=== PATIENT | male | born 1965 | race Caucasian/White ===

== ENCOUNTER 2018-01-20 14:41 | Inpatient (IN) | payer SELFPAY ==
[~2018-01-20 14:41] MED LIST: ISOVUE-370 76%-LOCM 1 ML ONE
[2018-01-20 15:19] LABS: #Lymphocytes 1.5 thou/uL (1.20-3.40); #Neutrophils 13.9 thou/uL (1.40-6.50); %Basophils 0.1 % (0.0-1.0); %Eosinophils 0.1 % (0.0-10.0); %Lymphocytes 8.9 % (21.0-51.0); %Monocytes 6.3 % (0.0-10.0); %Neutrophils 84.5 % (42.0-75.0); Hemoglobin 17.9 g/dL (14.0-18.0); Mean Corpuscular Hemoglobin 28.3 pg (27.0-31.0); Mean Corpuscular Volume 88.5 fL (78.0-98.0); Mean Platelet Volume 8.5 fL (7.4-10.4); Platelet Count 331 thou/uL (130-400); Red Blood Cell (RBC) Count 6.31 mill/uL (4.70-6.10); White Blood Cell (WBC) Count 16.4 thou/uL (4.8-10.8)
[2018-01-20 15:52] LABS: ALT (SGPT) 20 U/L (8-55); AST (SGOT) 15 U/L (5-34); Albumin 4.9 g/dL (3.5-5.0); Alkaline Phosphatase 101 U/L (40-150); Anion Gap 16 mmol/L (10-20); BUN (Urea Nitrogen) 29 mg/dL (8.4-25.7); Calc. Creatinine Clearance 0 mL/min (70-130); Calcium 10.5 mg/dL (7.8-10.44); Carbon Dioxide 22 mmol/L (22-29); Chloride 101 mmol/L (98-107); Estimated GFR-MDRD 61; Globulin 3.8 g/dL (2.4-3.5); Glucose 196 mg/dL (70-105); Lipase 8 U/L (8-78); Potassium 4.1 mmol/L (3.5-5.1); Protein, Total 8.7 g/dL (6.0-8.3); Sodium 135 mmol/L (136-145)
--- NOTE | 2018-01-20 16:04 | RAD ---
TWO VIEWS ABDOMEN ONE VIEW CHEST: 01/20/18 HISTORY: Pain and constipation. COMPARISON: None. FINDINGS: ONE VIEW CHEST: Diminished lung volumes. No consolidation or masses. No pleural effusion or pneumothorax. Normal card iac silhouette. ABDOMEN TWO VIEWS: Air filled loops of bowel are noted without differential air fluid levels. No pneumoperitoneum. On the supine projection, the majority of air appears to be within the colon. Paucity of small bowel gas. There is minimal amount of fecal material in the rectum. IMPRESSION: 1. Diminished lung volumes. No acute cardiopulmonary process. 2. Nonspecific bowel gas pattern. The air filled loops of nondistended colon without differentia l air fluid levels. POS: [facility]
--- NOTE | 2018-01-20 16:30 | CT ---
ABDOMEN CT WITH CONTRAST PELVIC CT WITH CONTRAST 01/20/18 HISTORY: Right lower quadrant pain. Abdominal fullness. COMPARISON: None. TECHNIQUE: Abdomen and pelvic CT are performed with IV contrast. Enteric contrast is not administered. Coronal r eformatted images are submitted for interpretation. FINDINGS: ABDOMEN CT: Lung bases are clear. Heart size is normal. No pericardial effusion. The descending thoracic aorta an d abdominal aorta are of normal caliber. No periaortic fat stranding. Portal vein is patent. Unremarkable gallbladder. Liver, spleen, pancreas, and adrenal glands have appropriate enhancement. No gastrohepatic retrocrural or periportal lymphadenopathy. There is elevation of the right hemidiaphragm. No mesenteric mass, lymphadenopathy, free air or free fluid. Symmetric enhancement of the kidneys. Bilaterally, no obstructive uropathy. Gastric mucosa is unremarkable. No evidence of gastric distention. Multiple fluid filled prominent sm all bowel loops involving the mid to distal small bowel, including the distal ileum and ileocecal candy ction. There is fluid attenuation involving the distended cecum, ascending colon, and proximal transv erse colon. The mid to distal transverse colon is still mildly prominent and fluid filled. The descen ding colon is mildly prominent and fluid filled. The cecum is decompressed. There is a minimal amount of fecal material in the rectum. There is evidence of a possible transition segment in the junction between the descending colon and sigmoid colon. Normal caliber appendix is noted. PELVIC CT: No mass, lymphadenopathy, free air of free fluid. IMPRESSION: Prominent fluid filled loops of colon and mid to distal small bowel. Findings may represent an obstru ctive process, possibly due to a mass lesion in the junction of the descending colon and sigmoid colo n (coronal image #[id number]). Possibility of a developing ileus cannot be completely excluded. Consider GI c onsultation for possible colonoscopy. POS: [facility]
[2018-01-20] MEDS ORDERED: HumaLOG 300 UNITS/3 ML VIAL SC PRN (18:49)
[2018-01-20] MEDS ORDERED: Dextrose 5% in Water 1,000 ML IV PRN (18:49)
[2018-01-20] MEDS ORDERED: Dextrose 50% Abboject 50 ML SYRINGE SLOW IVP PRN (18:49)
[2018-01-20] MEDS: Sodium Chloride 0.9% 1,000 ML IV SCH ×2 (19:00→20:06)
--- NOTE | 2018-01-20 19:33 | HP ---
PRIMARY CARE PROVIDER: Ryan Cabral. CHIEF COMPLAINT: Constipation. HISTORY OF PRESENT ILLNESS: Mr. Park is a pleasant 52-year-old gentleman, who was seen at [facility] on 01/20/2018. He is accompanied by his sister in the emergency room. He reports that he has been constipated over the last 3 days. He is passing flatus. He did not have a bowel movement. He reports that his symptoms actually started 3 weeks ago. Over the last 3 weeks, he has been having constipation as well as passage of liquid stools. He reports right lower quadrant pain over the las t 2 weeks, on and off, but it has resolved. He denies any nausea or vomiting. He denies any chest p ain. He denies any fevers or chills. He came to the emergency room because of the constipation. REVIEW OF SYSTEMS: All other systems reviewed and found to be negative. PAST MEDICAL HISTORY: Diabetes mellitus, type 2; and hypertension. PAST SURGICAL HISTORY: None. SOCIAL HISTORY: The patient denies tobacco use, alcohol use and recreational drug use. FAMILY HISTORY: Significant for multiple family members with heart problems, including his sister wh o had a "minor heart attack." ALLERGIES: No known drug allergies. CURRENT MEDICATIONS: None. PHYSICAL EXAMINATION: GENERAL: On examination, Mr. Park is awake and alert, not in acute distress. He is obese. VITAL SIGNS: Blood pressure is 177/104, pulse 110, respiratory rate 16, and he is saturating 94% on room air. He is afebrile. EYES: No scleral icterus. No conjunctival pallor. ENT: Moist mucosal membranes, no oropharyngeal erythema or exudates. NECK: Supple, nontender, normal range of movement, trachea is midline. RESPIRATORY: Accessory muscles of breathing are not active. Chest wall movements are symmetric bila terally. Lungs are clear to auscultation without wheeze, rhonchi or crepitations. CARDIOVASCULAR: S1 and S2 are heard, tachycardic and regular. Peripheral pulses palpable. No carot id bruit, no pericardial rub. ABDOMEN: Distended, nontender, bowel sounds are heard, no hepatomegaly, no splenomegaly. Rectal exa mination was done by emergency room physician, who notes the patient had brown stool. NEUROLOGIC: Cranial nerves II-XII intact. Deep tendon reflexes are 2+. MUSCULOSKELETAL: Power is 5/5 in all 4 extremities. SKIN: No rashes or subcutaneous nodules. LYMPHATIC: No cervical lymphadenopathy. PSYCHIATRIC: Normal mood, normal affect, patient is oriented to person, place, and time. LABORATORY DATA AND IMAGING: Mr. Park's labs and investigations were reviewed. I reviewed h is electrocardiogram, which shows sinus tachycardia, no ST changes to suggest an acute coronary syndr ome. I also reviewed his acute abdomen series, which shows air filled loops of bowel. He went on to have a CT scan of the abdomen and pelvis. Radiology report indicates prominent fluid filled loops o f colon and mid to distal small bowel. The findings may represent an obstructive process, possibly d ue to a mass lesion in the junction of the descending colon and sigmoid colon. Radiologist recommend s GI consultation for possible colonoscopy. He has leukocytosis with 16,400 white cells, of which 84 .5% are neutrophils, normal hemoglobin, normal platelet count, decreased sodium of 135, normal potass ium, elevated blood urea nitrogen of 29, normal creatinine, elevated glucose of 196, elevated calcium of 10.5, unremarkable liver profile and normal lipase. ASSESSMENT AND PLAN: Mr. Park is a pleasant 52-year-old gentleman, who was seen at [facility] on 01/20/2018. His problem list includes: 1. Constipation: Concern is a partial bowel obstruction. He will be admitted to the hospital for f urther management. I have discussed his case with the [employer] associate. Gastroenterology Service has kindly agreed to see the patient for further management. The patient will be kept n.p.o. and provided intravenous hydration. 2. Diabetes mellitus, type 2. The patient is not taking his medications. We will start Accu-Cheks and insulin sliding scale. 3. Hypertension: Blood pressure is currently elevated. We will start p.r.n. IV hydralazine. 4. Sinus tachycardia: Etiology is unclear, could be related to dehydration, especially given the el evated blood urea nitrogen. We will provide intravenous hydration and observe. 5. Hyponatremia: Mild, recheck sodium level. 6. Hypercalcemia: Mild, recheck calcium level. 7. Leukocytosis: The patient is not febrile at this time. I also reviewed his chest x-ray, which d oes not show any infiltrates in the lungs. We will check urine studies. We will hold off on antibio tics for now. We will check CBC in the morning. Many thanks for allowing me to participate in your patient's care. Please feel free to contact me wi th any questions or concerns. LEVEL OF RISK: High. LEVEL OF COMPLEXITY: High.
[2018-01-20 19:58] VITALS: BMI 43.5
[2018-01-20] MEDS: hydrALAZINE 20 MG/ML VIAL SLOW IVP PRN (20:07)
[2018-01-20] MEDS ORDERED: Fleet Enema 133 ML BOT PR SCH (22:00)
[2018-01-20] MEDS ORDERED: Metoprolol Tartrate 5 MG/5 ML VIAL IVP SCH (23:45)
--- NOTE | 2018-01-21 02:08 | CON ---
DATE OF CONSULTATION: 01/20/2018 INDICATION FOR CONSULTATION: Possible colonic obstruction. CONSULTING PHYSICIAN: Andrew Arrieta M.D. HISTORY OF PRESENT ILLNESS: The patient is a 52-year-old gentleman with past medical history of diab etes and hypertension presenting with complaints of right lower quadrant abdominal pain. He states t hat approximately 3 weeks ago he had a sudden onset of severe diarrhea that lasted few days. There w as then immediately followed with a decreased change in his bowel pattern having approximately one se mi-solid movement every 2-3 days. This was associated with increased straining in order to have a david wel movement as well as tenesmus type symptoms where he would get the sensation of a bowel movement, but was unable to do so. This decrease in the frequency of his bowel habits, was also associated wit h increased right lower quadrant tightness/pain that was characterized as a cramping tightness type p ain, intermittent with complete resolution in between episodes of pain would radiate to the periumbil ical region and would reach a severity of approximately 3-4/10. The pain was worse with increased hi ccups, better only with spontaneous resolution after a small amount of time. He did also endorse one episode of hematochezia characterized as bright red blood per rectum that was present in the toilet, not on the toilet paper, was seen as a small amount with blood mixed in with stool rather than coati ng the stool. Over the same 3 weeks, he also endorses increased night sweats, xerostomia, and increa sed hiccups. Of note, his normal bowel habits would include approximately two solid bowel movements per day. Currently, denies any nausea, vomiting, fevers, chills, shortness of breath, chest pain, di arrhea, dysphagia, odynophagia, or weight loss. He has never had a colonoscopy before. He denies an y family history of colon polyps or colon cancer. REVIEW OF SYSTEMS: Ten-category review of systems was obtained with all responses negative except fo r the pertinent positives as listed in the HPI. PAST MEDICAL HISTORY: As per HPI. PAST SURGICAL HISTORY: None. FAMILY HISTORY: Multiple family members with different cancers including brain, breast, lung. OUTPATIENT MEDICATIONS: None. ALLERGIES: No known drug allergies. PHYSICAL EXAMINATION: VITAL SIGNS: Temperature 97.7, pulse 109, blood pressure 145/85, respiratory rate 16, satting 96% on room air. GENERAL: The patient is lying in bed in no acute distress. Alert and oriented x4. NECK: Supple, no JVD noted. CARDIOVASCULAR: Tachycardic rate, but regular rhythm, 3/6 systolic murmur best heard in the left upp er sternal border, but no gallops auscultated. RESPIRATORY: Clear to auscultation bilaterally with no discernible wheezes or rales. ABDOMEN: Hypoactive bowel sounds with high pitched bowel sounds in the left upper quadrant, soft, mi ld to moderate distention that was tympanic to percussion and mild tenderness to palpation in the rig ht lower quadrant. EXTREMITIES: No cyanosis, clubbing or edema. LABORATORY DATA: CBC with a white blood cell count of 16.4, hemoglobin 17.9, hematocrit 55.9, platel ets 331. Chemistry with a sodium of 135, potassium 4.1, chloride 101, CO2 of 22, BUN 29, creatinine 1.24, glucose 196, AST 15, ALT 20, alkaline phosphatase 101, total bilirubin 1.0, albumin 4.9. IMAGING DATA: CT of the abdomen and pelvis obtained on 01/20/2018 showed multiple prominent loops of small bowel in the mid to distal small bowel. It also showed distended cecum, ascending and proxima l transverse colons with evidence of a possible transition point between the descending colon and sig moid. ASSESSMENT AND PLAN: The patient is a 52-year-old male with past medical history of diabetes and hyp ertension presenting with a probable colonic obstruction with transition point between the descending and sigmoid colons. Colonic obstruction. The patient is presenting with 3-week history of change in his bowel habits, henderson ving approximately one semi-solid every 2 to 3 days. This was associated with increased tenesmus as well as one episode of hematochezia with bright red blood present mixed in with stool rather than coa ting of stool. This was also associated with increased right lower quadrant abdominal tightness that has progressively gotten worse over the same time. The pain being intermittent in nature with radia tion to the periumbilical area. On admission to the ER earlier today, he did have a CT scan that jhoana wed the presence of multiple dilated loops of small bowel as well as distention of the right colon an d a probable transition point between the descending colon and sigmoid concerning for a colonic obstr uction. At this point, the etiology of his colonic obstruction is unknown, but the differential coul d include stricture or stenosis, volvulus, colonic mass/polyp, or inflammation/edema contributing to narrowing of the colonic lumen. RECOMMENDATIONS: 1. Please keep patient n.p.o. for probable colonic obstruction. 2. NG tube placement is not unreasonable at this time given dilation of the small bowel and could po tentially help decompress of the gastrointestinal tract. 3. We will plan for an unprepped flexible sigmoidoscopy for determination of possible transition poi nt between the descending and sigmoid colons. 4. Further recommendations to follow endoscopic evaluation. We will continue to follow. Please call with any questions.
[2018-01-21 05:28] LABS: #Lymphocytes 1.6 thou/uL (1.20-3.40); #Monocytes 1.4 thou/uL (0.11-0.59); #Neutrophils 9.9 thou/uL (1.40-6.50); %Basophils 0.1 % (0.0-1.0); %Eosinophils 0.1 % (0.0-10.0); %Monocytes 10.7 % (0.0-10.0); Hemoglobin 16.6 g/dL (14.0-18.0); Mean Corpuscular HGB CONC 31.8 g/dL (32.0-36.0); Mean Corpuscular Hemoglobin 28.2 pg (27.0-31.0); Mean Corpuscular Volume 88.9 fL (78.0-98.0); Mean Platelet Volume 8.5 fL (7.4-10.4); Platelet Count 285 thou/uL (130-400); RBC Distribution Width 13.1 % (11.5-14.5); Red Blood Cell (RBC) Count 5.88 mill/uL (4.70-6.10); White Blood Cell (WBC) Count 12.9 thou/uL (4.8-10.8)
[2018-01-21 05:44] LABS: Anion Gap 15 mmol/L (10-20); BUN (Urea Nitrogen) 28 mg/dL (8.4-25.7); Calc. Creatinine Clearance 211 mL/min (70-130); Calcium 8.8 mg/dL (7.8-10.44); Carbon Dioxide 21 mmol/L (22-29); Chloride 107 mmol/L (98-107); Estimated GFR-MDRD Greater than 90; Glucose 143 mg/dL (70-105); Potassium 3.8 mmol/L (3.5-5.1); Sodium 139 mmol/L (136-145)
[2018-01-21] MEDS: hydrALAZINE 20 MG/ML VIAL SLOW IVP PRN ×2 (08:47→21:05)
[2018-01-21 09:40] LABS: Bilirubin Small (Negative); Blood, Urine Small (Negative); Clarity CLEAR (Clear); Glucose, Urine (Dipstick) 100 mg/dL (Negative); Leukocyte Negative (Negative); Nitrite Negative (Negative); Protein, Urine (Dipstick) 100 mg/dL (Neg-Trace); pH, Urine 5.5 (5.0-9.0)
[2018-01-21 09:43] LABS: Bacteria/HPF None Seen HPF (None Seen); Hyaline Casts/LPF 7-10 HYALINE CAST LPF (0-3 Hyaline); Pathc Cast-AUWi Flag 1.74 (0-2.49); Squamous Epithelial 0-3 HPF (0-3); WBC/HPF 0-3 HPF (0-3)
[2018-01-21 09:44] LABS: Specific Gravity, Urine 1.043 (1.002-1.036)
[2018-01-21] MEDS ORDERED: Labetalol HCl 100 MG/20 ML VIAL SLOW IVP PRN (11:13)
[2018-01-21] MEDS ORDERED: Enalaprilat Dihydrate 1.25 MG/ML VIAL SLOW IVP PRN (11:14)
[2018-01-21] MEDS: Sodium Chloride 0.9% 1,000 ML IV SCH ×2 (11:49→23:36)
--- NOTE | 2018-01-21 12:01 | PRG ---
DATE OF SERVICE: 01/21/2018 INDICATION FOR CONSULTATION: Colonic obstruction. SUBJECTIVE: Patient states that his abdominal pain is either the same or minimally improved when com pared to overnight. After receiving both Fleets enemas yesterday, he did have a large semi-solid or liquid bowel movement with alleviation of some of the pain afterwards. Currently, denies any nausea, vomiting, fevers, chills, shortness of breath, dysphagia, odynophagia. He did have one episode of b right red blood per rectum during this admission with the large bowel movement that he had last night . OBJECTIVE: VITAL SIGNS: Temperature 98.5, pulse 114, blood pressure 201/122, respiratory rate 18, satting 94% o n room air. GENERAL: The patient is lying in bed in no acute distress. Alert and oriented x4. CARDIOVASCULAR: Tachycardic rate, but regular rhythm, 3/6 systolic murmur best heard at the left upp er sternal border. LUNGS: Clear to auscultation bilaterally. ABDOMEN: Hypoactive bowel sounds, soft, [id number] abdominal distention that was tympanic to p ercussion. Mild tenderness to palpation in the right lower quadrant only. EXTREMITIES: No cyanosis, clubbing, or edema. LABORATORY DATA: CBC with a white blood cell count of 12.9, hemoglobin 16.6, hematocrit 52.3, platel ets 285. Chemistry with a sodium of 139, potassium 3.8, chloride 107, CO2 of 21, BUN 28, creatinine 0.87, glucose 143. IMAGING DATA: No current GI imaging is available for review. ASSESSMENT AND PLAN: The patient is a 52-year-old male with past medical history of diabetes and hyp ertension presenting with a probable colonic obstruction with transition point between the descending and sigmoid colons. Colonic obstruction. The patient is presenting with a 3-week history in his change in bowel habits, having approximately 1 semi-solid bowel movement every 2-3 days. This was associated with increased tenesmus as well as one episode of hematochezia as an outpatient. With the administration of 2 Fleet s enemas last night, he was able to have a larger bowel movement, but did have some blood associated with this larger bowel movement. At this point, the CT scan obtained shortly after admission showed the presence of multiple dilated loops of small bowel as well as distention of the right colon and le ft colon with a probable transition point between the descending colon and sigmoid concerning for a c olonic obstruction. At this point, the etiology of his colonic obstruction is unknown with possibili ties being stricture/stenosis, volvulus, or colonic mass/polyp. He was scheduled to be taken to the endoscopy suite yesterday for further evaluation, but was noted to have a possible old inferior myoca rdial infarction on EKG, and given his uncontrolled blood pressure and tachycardia, he was unsafe to proceed in a nonemergent procedure. RECOMMENDATIONS: 1. Agree with consultation with Cardiology for evaluation of the patient and clearance prior to endo scopic evaluation with sedation. 2. We would keep patient n.p.o. for now, given the presence of a colonic obstruction. 3. We would plan for a flexible sigmoidoscopy for further evaluation of this obstruction once given cardiology clearance. We will continue to follow. Please call with any questions.
--- NOTE | 2018-01-21 15:24 | RAD ---
ABDOMEN 2 VIEWS: Date: 01/21/18 HISTORY: 52-year-old male with history of colonic distention. COMPARISON: Prior CT scan and prior abdomen 2 view examination from 01/20/18. FINDINGS: There is persistent dilatation of the colon with air fluid levels, as well as distal small bowel with air fluid levels in right lower quadrant small bowel, worrisome for proximal colonic obstruction, wh ich certainly could be the result of an obstructing lesion seen in the sigmoid colon on the prior CT scan. No evidence for free intraperitoneal air. IMPRESSION: Persistent colonic distention and some dilatation with air and fluid, as well as some dilated distal small bowel with air fluid levels, which may well be related to a constricting mass in the sigmoid co long seen on the prior CT of 01/20/18. Colonoscopy follow-up is suggested. No evidence for free intrap eritoneal air. POS: [facility]
--- NOTE | 2018-01-21 17:27 | PDOC.PN ---
- Subjective Encounter Start Date: 01/21/18 Encounter Start Time: 11:20 Pt seen for followup re: bowel obstruction. Denies chest pain or shortness of breath. Had Fleet enema overnight. - Objective MAR Reviewed: Yes Vital Signs & Weight: Vital Signs (12 hours) Temp Pulse Resp BP Pulse Ox 01/21/18 16:00 98.4 F 122 H 18 179/119 H 98 01/21/18 11:13 98.5 F 122 H 16 180/112 H 98 01/21/18 08:47 114 H 01/21/18 08:00 98.5 F 114 H 18 201/122 H 97 Weight Weight 339 lb 2 oz I&O: 01/20/18 01/21/18 01/22/18 06:59 06:59 06:59 Output Total 500 Balance -500 Result Diagrams: 01/21/18 05:21 01/21/18 05:21 Additional Labs: Accuchecks 01/21/18 01/21/18 01/21/18 11:53 06:18 00:29 POC Glucose 148 H 127 H 176 H 01/20/18 20:17 POC Glucose 139 H Labs reviewed by me Phys Exam - Physical Examination Morbid obesity HEENT: moist MMs, sclera anicteric, oral pharynx no lesions, 2+ tonsils Neck: no nodes, no JVD, supple, full ROM Respiratory: no wheezing, no rales, no rhonchi, clear to auscultation bilateral Cardiovascular: RRR, no rub S1, s2 Gastrointestinal: soft, non-tender, positive bowel sounds distention Neurological: moves all 4 limbs Psychiatric: normal affect, A&O x 3 Dx/Plan (1) Bowel obstruction Code(s): K56.609 - UNSP INTESTNL OBST, UNSP TO PARTIAL VERSUS COMPLETE OBST Status: Acute Comment: Plan is for Flex-sig after cardiology clearance (2) Hypertensive urgency Code(s): I16.0 - HYPERTENSIVE URGENCY Status: Acute Comment: added PRN antihypertensives (IV, since pt is NPO) as well as clonidine patch (3) DM2 (diabetes mellitus, type 2) Status: Chronic Comment: continue accuchecks, insulin sliding scale (4) Hypercalcemia Code(s): E83.52 - HYPERCALCEMIA Status: Resolved - Plan * . Review of Systems - Review of Systems Constitutional: negative: fever, chills, sweats, weakness, malaise Respiratory: negative: Cough, Shortness of Breath, SOB with Excertion, Pleuritic Pain, Wheezing Cardiovascular: negative: chest pain, palpitations, orthopnea, paroxysmal nocturnal dyspnea, edema, light headedness Gastrointestinal: Constipation. negative: Nausea, Vomiting, Abdominal Pain, Diarrhea, Melena, Hematochezia Skin: negative: Rash, Lesions, Gui, Bruising Neurological: negative: Weakness, Numbness, Incoordination, Change in Speech, Confusion, Seizures - Medications/Allergies Allergies/Adverse Reactions: Allergies Allergy/AdvReac Type Severity Reaction Status Date / Time No Known Drug Allergies Allergy Verified 01/20/18 19:56 Medications: Current Medications Clonidine (Stuywmki-Uml-4 Patch) 0.1 mg TD [id number] [facility] Last Admin: 01/21/18 16:16 Dose: 0.1 mg Dextrose/Water (Dextrose 50%) 25 gm SLOW IVP PRN PRN PRN Reason: Hypoglycemia Enalaprilat (Vasotec) 1.25 mg SLOW IVP Q6HR PRN PRN Reason: SBP Greater Than 180 Glucagon (Glucagon) 1 mg IM PRN PRN PRN Reason: Hypoglycemia Hydralazine HCl (Apresoline) 10 mg SLOW IVP Q6H PRN PRN Reason: SBP Greater Than 170 Last Admin: 01/21/18 08:47 Dose: 10 mg Dextrose/Water (D5w) 1,000 mls @ 0 mls/hr IV .Q0M PRN; As Directed PRN Reason: Hypoglycemia Sodium Chloride (Normal Saline 0.9%) 1,000 mls @ 70 mls/hr IV .[id number] [facility] Last Admin: 01/21/18 11:49 Dose: 1,000 mls Insulin Human Lispro (Humalog) 0 units SC .MILD SLIDING SCALE PRN PRN Reason: Mild Correctional Scale Labetalol HCl (Normodyne) 10 mg SLOW IVP Q4H PRN PRN Reason: SBP Greater Than 180 Sodium Chloride (Flush - Normal Saline) 10 ml IVF PRN PRN PRN Reason: Saline Flush
--- NOTE | 2018-01-21 22:43 | CON ---
DATE OF CONSULTATION: 01/21/2018 HISTORY: Jignesh Park is a 52-year-old white male who is admitted with constipation for 3-4 days prior to coming in. He also has had lower abdominal pain on and off. He is admitted with presumed bowel obstruction of the colon. There is a concern regarding his initial EKG and an EKG has been repeated. Mr. Park denies any chest discomfort, then his states that 3 or 4 years ago, he had some chest pain, but has not had any since. He does have dyspnea on exertion if he tries to carry a couch or do some type of strenuous activity with walking or climbing stairs. He denies any dyspnea. He denies any PND, orthopnea, or leg edema. PAST MEDICAL HISTORY: Diabetes and hypertension. He denies any history of hypercholesterolemia, but states he has never been tested. MEDICATIONS: None. ALLERGIES: None. OPERATIONS: None. SOCIAL HISTORY: Does not smoke, very rarely drinks. FAMILY HISTORY: Father had myocardial infarction and sister had myocardial infarction. REVIEW OF SYSTEMS: Twelve-point review of systems, otherwise unremarkable. PHYSICAL EXAMINATION: VITAL SIGNS: 179/119, pulse of 122. HEENT: PERRL. NECK: Supple. CHEST: Clear. CARDIAC: S1 and S2 are normal without any S3, S4, or murmurs. ABDOMEN: Distended with high-pitched tinkling sounds. EXTREMITIES: Revealed no clubbing, cyanosis, or edema. NEUROLOGIC: Grossly intact. LABORATORY DATA: Initial EKG had a lot of baseline artifact in lead II and III , and there is incorrect interpretation by the computer of this being an inferior infarction. Repeat EKG only shows a small-narrow Q-wave in lead III and no significant Q-waves in II and F. Echocardiogram revealed ejection fraction of 60%-65% with evidence of diastolic dysfunction, left atrial enlargement, mild mitral regurgitation, aortic valvular sclerosis, and mild tricuspid regurgitation. IMPRESSION: 1. Colonic obstruction of uncertain etiology. 2. Incorrect interpretation by the EKG computer. 3. Normal left ventricular function on echo. 4. Hypertension, untreated. 5. Diabetes, untreated. RECOMMENDATIONS: Mr. Park appears to be an acceptable cardiac risk for intravenous sedation. He certainly needs to be on some type of blood pressure medicine; however, a lot of the hypertension and tachycardia may be related to his abdominal pain. This will need to be reassessed, once he has been decompressed. I also will have a lipid profile performed on him in the morning with his family history of coronary artery disease. He does require therapy for his blood pressure, the best option would be a beta-sreekanth with his evidence for diastolic dysfunction on echo. LEATHA
[2018-01-21] MEDS ORDERED: Morphine 4 MG/ML Carpuject SLOW IVP PRN (23:07)
[2018-01-22] MEDS: Sodium Chloride 0.9% 1,000 ML IV SCH ×2 (02:13→18:28)
[2018-01-22] MEDS ORDERED: Labetalol HCl 100 MG/20 ML VIAL SLOW IVP PRN (02:45)
[2018-01-22 04:10] LABS: #Lymphocytes 1.3 thou/uL (1.20-3.40); #Monocytes 1.3 thou/uL (0.11-0.59); #Neutrophils 9.3 thou/uL (1.40-6.50); %Basophils 0.1 % (0.0-1.0); %Eosinophils 0.2 % (0.0-10.0); %Lymphocytes 10.7 % (21.0-51.0); %Monocytes 10.9 % (0.0-10.0); %Neutrophils 78.2 % (42.0-75.0); Mean Corpuscular HGB CONC 32.8 g/dL (32.0-36.0); Mean Corpuscular Hemoglobin 29.5 pg (27.0-31.0); Mean Corpuscular Volume 89.9 fL (78.0-98.0); Mean Platelet Volume 8.8 fL (7.4-10.4); Platelet Count 270 thou/uL (130-400); RBC Distribution Width 13.4 % (11.5-14.5); Red Blood Cell (RBC) Count 5.77 mill/uL (4.70-6.10); White Blood Cell (WBC) Count 11.9 thou/uL (4.8-10.8)
[2018-01-22 04:29] LABS: Anion Gap 13 mmol/L (10-20); BUN (Urea Nitrogen) 29 mg/dL (8.4-25.7); Calc. Creatinine Clearance 211 mL/min (70-130); Calcium 9.1 mg/dL (7.8-10.44); Carbon Dioxide 22 mmol/L (22-29); Cardiac Risk 5.3 (Less than 4.5); Chloride 109 mmol/L (98-107); Cholesterol 133 mg/dl (< 200 Desired); Estimated GFR-MDRD Greater than 90; Glucose 173 mg/dL (70-105); HDL Cholesterol 25 mg/dL (>60 Neg Risk); LDL Cholesterol, Calculated 94 mg/dL; Sodium 140 mmol/L (136-145); Triglycerides 72 mg/dL (Less than 150)
[2018-01-22] MEDS: hydrALAZINE 20 MG/ML VIAL SLOW IVP PRN (07:59)
--- NOTE | 2018-01-22 11:56 | OP ---
DATE OF PROCEDURE: 01/22/2018 INDICATION FOR PROCEDURE: Abnormal GI imaging, probable colonic obstruction. PROCEDURE: Flexible sigmoidoscopy with biopsy and submucosal injection. DESCRIPTION OF PROCEDURE: After the risks and benefits of the procedure were explained to the patien t including risks of bleeding, infection, perforation, reaction to anesthesia and/or pain, informed c onsent was obtained. The patient was then taken to the endoscopy suite where deep sedation was admin istered via propofol and anesthesia support. Once adequate sedation was achieved, the standard gastr oscope was introduced into the rectum and advanced to approximately 40 cm past the anal verge with fu rther progress difficult due to looping of the scope and mild tortuosity of the colon. There was als o a significant amount of retained both solid and liquid stool seen throughout the entire colon limit ing visualization significantly. Any lesions less than 1 cm in size could have been missed. With lac k of progression with the standard gastroscope, he was then transferred to the standard colonoscope w hich was then introduced into the rectum and proceeded to approximately 80-90 cm past the anal verge with the findings listed below. The quality of the prep was poor. The patient tolerated the procedu re well with no immediate perioperative complications. FINDINGS: Digital rectal examination normal. COLON FINDINGS: A significant amount of both solid and liquid stool was seen throughout the entire c olon up to 80 cm at which point further progress could not be achieved due to lack of visualization o f the colonic lumen despite aggressive irrigation and suctioning. A large amount of both solid and l iquid stool was suctioned during the course of this procedure as well as decompression of the proxima l colon. With the quality of the prep being poor, lesions less than 1 cm in size could have been mis sed. At approximately 50 cm past the anal verge, a large near obstructive colonic mass was seen that exhibited characteristics of a fungating morphology as well as friability. This mass occupied appro ximately 95% of the colonic lumen and was able to be traversed with some difficulty with the colonosc ope. It measured approximately 4-5 cm in length. Multiple biopsies were taken from the lesion and p laced in a specimen jar for evaluation. Submucosal tattoos were also placed on the proximal and dist al ends of the lesion to héctor for further reference and/or surgical resection. The remainder of the examination distal to 50 cm was difficult due to the poor prep with no additional lesions seen. Retr oflexion was not performed during this examination due to poor visualization. IMPRESSION: 1. A large fungating and friable near obstructive mass seen at approximately 50 cm past the anal galo ge, status post biopsies and submucosal tattoo to héctor for further reference. 2. Significant amount of both solid and liquid stool limiting visualization of the colonic mucosa. Lesions less than 1 cm in size could have been missed. 3. Successful decompression of the proximal colon secondary to obstruction from the colonic mass. RECOMMENDATIONS: 1. We will follow up on biopsy results with a high suspicion for colonic malignancy. 2. Would keep patient n.p.o. in anticipation of probable surgical resection within the next 24-48 ho urs. 3. We would consult General Surgery for resection of this colonic mass due to its near obstructive n ature. 4. We would continue to trend hemoglobin and hematocrit and transfuse as necessary to maintain an he moglobin and hematocrit of 7/21. 5. Continue to monitor clinically for signs of active gastrointestinal bleeding. 6. Could consider use of enemas to break up any additional solid stool proximal to this lesion. We will sign off at this time. Please call with any additional questions.
[2018-01-22] MEDS ORDERED: Iopamidol 370 76% 100 ML VIAL ONE (13:49)
--- NOTE | 2018-01-22 14:21 | PDOC.PN ---
- Subjective Encounter Start Date: 01/22/18 Encounter Start Time: 07:00 Pt seen for followup re: bowel obstruction. Denies chest pain, shortness of breath, fevers or chills. - Objective MAR Reviewed: Yes Vital Signs & Weight: Vital Signs (12 hours) Temp Pulse Resp BP BP Pulse Ox 01/22/18 12:00 98.5 F 100 18 142/84 H 92 L 01/22/18 08:00 98.0 F 108 H 18 202/117 H 94 L 01/22/18 07:59 97 202/117 H 01/22/18 03:42 97 16 155/83 H 01/22/18 03:38 110 H 16 177/99 H 01/22/18 03:36 115 H 180/100 H 01/22/18 03:30 96.8 F L 115 H 18 180/100 H 94 L Weight Weight 339 lb 2 oz I&O: 01/21/18 01/22/18 01/23/18 06:59 06:59 06:59 Output Total 500 Balance -500 Result Diagrams: 01/22/18 03:53 01/22/18 03:53 Additional Labs: Accuchecks 01/22/18 01/22/18 01/21/18 12:55 06:37 21:28 POC Glucose 140 H 135 H 139 H 01/21/18 18:12 POC Glucose 139 H Labs reviewed by me Phys Exam - Physical Examination Morbid obesity HEENT: moist MMs, sclera anicteric, oral pharynx no lesions, 2+ tonsils don conjunctival inflammation Neck: no nodes, no JVD, supple, full ROM Respiratory: no wheezing, no rales, no rhonchi, clear to auscultation bilateral Cardiovascular: RRR, no rub S1, S2 Gastrointestinal: soft, non-tender, positive bowel sounds distention, hypoactive bowel sounds Neurological: moves all 4 limbs Psychiatric: normal affect, A&O x 3 Dx/Plan (1) Bowel obstruction Code(s): K56.609 - UNSP INTESTNL OBST, UNSP TO PARTIAL VERSUS COMPLETE OBST Status: Acute Comment: For flex-sig today (cleared by cardiology) (2) Conjunctivitis Code(s): H10.9 - UNSPECIFIED CONJUNCTIVITIS Status: Acute Comment: start ciprofloxacin drops (3) Hypertensive urgency Code(s): I16.0 - HYPERTENSIVE URGENCY Status: Acute Comment: Improving, continue PRN IV antihypertensives for now, start beta sreekanth when pt is able to take oral meds (4) DM2 (diabetes mellitus, type 2) Status: Chronic Comment: on accuchecks, insulin sliding scale - Plan * . Review of Systems - Review of Systems Constitutional: negative: fever, chills, sweats, weakness, malaise Eyes: Conjunctivae Inflammation, Redness. negative: Pain, Vision Change, Eyelid Inflammation Respiratory: negative: Cough, Shortness of Breath, SOB with Excertion, Pleuritic Pain, Wheezing Cardiovascular: negative: chest pain, palpitations, orthopnea, paroxysmal nocturnal dyspnea, edema, light headedness Gastrointestinal: Constipation. negative: Nausea, Vomiting, Abdominal Pain, Diarrhea, Melena, Hematochezia Genitourinary: negative: Dysuria, Frequency, Incontinence, Hematuria, Retention - Medications/Allergies Allergies/Adverse Reactions: Allergies Allergy/AdvReac Type Severity Reaction Status Date / Time No Known Drug Allergies Allergy Verified 01/20/18 19:56 Medications: Current Medications Ciprofloxacin (Ciprofloxacin Hcl) 1 drop EA EYE Q6H [facility] Clonidine (Xjupnfwd-Lqj-1 Patch) 0.1 mg TD Q7DAYS [facility] Last Admin: 01/21/18 16:16 Dose: 0.1 mg Dextrose/Water (Dextrose 50%) 25 gm SLOW IVP PRN PRN PRN Reason: Hypoglycemia Enalaprilat (Vasotec) 1.25 mg SLOW IVP Q6HR PRN PRN Reason: SBP Greater Than 180 Glucagon (Glucagon) 1 mg IM PRN PRN PRN Reason: Hypoglycemia Dextrose/Water (D5w) 1,000 mls @ 0 mls/hr IV .Q0M PRN; As Directed PRN Reason: Hypoglycemia Sodium Chloride (Normal Saline 0.9%) 1,000 mls @ 70 mls/hr IV .[id number] [facility] Last Admin: 01/22/18 02:13 Dose: 1,000 mls Insulin Human Lispro (Humalog) 0 units SC .MILD SLIDING SCALE PRN PRN Reason: Mild Correctional Scale Labetalol HCl (Normodyne) 20 mg SLOW IVP Q4H PRN PRN Reason: SBP Greater Than 180 Morphine Sulfate (Morphine) 2 mg SLOW IVP Q4H PRN PRN Reason: Moderate Pain (4-6) Morphine Sulfate (Morphine) 4 mg SLOW IVP Q4H PRN PRN Reason: Severe Pain (7-10) Last Admin: 01/22/18 13:49 Dose: 4 mg Sodium Chloride (Flush - Normal Saline) 10 ml IVF PRN PRN PRN Reason: Saline Flush
--- NOTE | 2018-01-22 14:22 | CT ---
CHEST CT WITH CONTRAST: Date: 01/22/18 HISTORY: Near obstructive colonic mass on scope. Colon cancer. Evaluate for metastasis. COMPARISON: None. TECHNIQUE: Postcontrast chest CT is performed in the axial plane. Reformatted images are submitted for interpret ation. FINDINGS: Trachea and central bronchi are patent. There are linear opacities in the left and right lower lobe, along with consolidation and air bronchogram in the right lower lobe suggesting areas of scar and ate lectasis. There is elevation of the right hemidiaphragm. No suspicious masses are noted. Visualized upper solid organs are grossly unremarkable. Trace amount of perihepatic fluid is noted. No mediastinal mass, lymphadenopathy, or hematoma. Heart size is normal. Minimal coronary artery calc ifications. The thoracic aorta and upper abdominal aorta have a normal caliber. No periaortic fat str anding. No lytic or blastic lesions in the osseous structures. IMPRESSION: No CT evidence of intrathoracic metastasis. POS: [facility]
[2018-01-22] MEDS ORDERED: PROPOFOL 200 MG/20 ML VIAL ONE (14:34)
[2018-01-22] MEDS ORDERED: Lidocaine 1% PF 5 ML VIAL ONE (14:34)
[2018-01-22] MEDS ORDERED: GoLYTELY 4,000 ml Bottle PO SCH (16:15)
[2018-01-22] MEDS ORDERED: Piperacillin/Tazobactam 4.5 GM in Sodium Chloride 0.9% 100 ML IVPB SCH (16:30)
[2018-01-22] MEDS: Labetalol HCl 100 MG/20 ML VIAL SLOW IVP PRN (19:49)
[2018-01-23] MEDS: Labetalol HCl 100 MG/20 ML VIAL SLOW IVP PRN ×2 (00:14→04:19)
[2018-01-23] MEDS: Sodium Chloride 0.9% 1,000 ML IV SCH ×2 (04:15→17:45)
[2018-01-23 04:28] LABS: #Lymphocytes 0.9 thou/uL (1.20-3.40); #Monocytes 1.1 thou/uL (0.11-0.59); %Basophils 0.3 % (0.0-1.0); %Eosinophils 0.3 % (0.0-10.0); %Lymphocytes 7.2 % (21.0-51.0); %Monocytes 9.4 % (0.0-10.0); %Neutrophils 82.9 % (42.0-75.0); Hemoglobin 16.6 g/dL (14.0-18.0); Mean Corpuscular HGB CONC 33.4 g/dL (32.0-36.0); Mean Corpuscular Volume 89.9 fL (78.0-98.0); Mean Platelet Volume 9.1 fL (7.4-10.4); Platelet Count 238 thou/uL (130-400); RBC Distribution Width 13.3 % (11.5-14.5); Red Blood Cell (RBC) Count 5.55 mill/uL (4.70-6.10); White Blood Cell (WBC) Count 12.1 thou/uL (4.8-10.8)
[2018-01-23 04:44] LABS: Anion Gap 11 mmol/L (10-20); BUN (Urea Nitrogen) 25 mg/dL (8.4-25.7); Calc. Creatinine Clearance 236 mL/min (70-130); Carbon Dioxide 27 mmol/L (22-29); Chloride 105 mmol/L (98-107); Estimated GFR-MDRD Greater than 90; Glucose 160 mg/dL (70-105); Potassium 3.7 mmol/L (3.5-5.1); Sodium 139 mmol/L (136-145)
[2018-01-23] MEDS ORDERED: Midazolam HCl 2 mg/2 ml Vial ONE ×2 (06:54→07:09)
[2018-01-23] MEDS ORDERED: Fentanyl 250 MCG/5 ML VIAL ONE ×2 (06:54→10:31)
[2018-01-23] MEDS ORDERED: Labetalol HCl 100 MG/20 ML VIAL ONE (07:09)
--- NOTE | 2018-01-23 07:47 | CON ---
DATE OF CONSULTATION: 01/22/2018 REQUESTING PHYSICIAN: Dr. Busots. HISTORY OF PRESENT ILLNESS: This is a 52-year-old man who presented 3 days ago to the [facility] department with complaint of insidious onset right lower quadrant abdominal pain of 2 weeks' du ration. Prior to this, patient reports alternating episodes of constipation greater than diarrhea which spans over the last one month. He reports having had some bloody streaks with his stool which had changed dramatically in caliber ov er the last 2-3 weeks. Patient denies any unexplained weight loss. He denies any nausea or vomiting . Denies any fevers or chills. CT scan of the abdomen and pelvis was obtained 3 days ago which revealed multiple distended loops of small bowel as well as knee obstruction of the descending colon/sigmoid colon junction. The patient underwent flexible proctosigmoidoscopy this morning following an enema which was given yesterday. Findings of the FPS today consistent with nearly obstructing fungating colonic mass at 50 cm. I have been asked to evaluate the patient for surgical intervention. At the time of my evaluation, the patient denies any abdominal pain. PAST MEDICAL HISTORY: Pertinent for type 2 diabetes mellitus and essential hypertension, both of whi ch the patient is noncompliant with his medications. SURGICAL HISTORY: He denies any significant surgeries except for repair of foot laceration as a chil d. SOCIAL HISTORY: He is single, lives independently. 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 He denies any cigarette smoking, ethanol or illicit drug abuse. FAMILY HISTORY: Notable for various family members on both sides of the family with heart disease, o ne maternal aunt with kidney cancer and another maternal aunt with brain cancer. Breast cancer in on e sister and his mother. PREHOSPITAL MEDICATION: He is supposed to be on metformin and some antihypertensives, both of which the patient has not been taken. ALLERGIES: He denies any known drug allergies. REVIEW OF SYSTEMS: Ten-point review of systems essentially unremarkable except for as stated in past medical history and chief complaint. PHYSICAL EXAMINATION: GENERAL: This reveals a 52-year-old normally developed 6 feet 2-inch man who weighs 339 pounds with a BMI of 43.5 kilograms per meter squared. He appears to be in no acute distress at the time of my e valuation. VITAL SIGNS: Includes blood pressure 142/84, pulse is 100, respiratory rate is 18, temperature is 98 .5 degrees Fahrenheit, oxygen saturation 92% on room air. HEENT: Reveals normocephalic and atraumatic. He has bilateral conjunctival hemorrhages and some pur ulent drainage consistent with acute conjunctivitis. HEART: Reveals regular rate and rhythm, no murmurs or gallops auscultated. LUNGS: Clear to auscultation bilaterally. Breathing regular and unlabored. ABDOMEN: Soft and obese with no tenderness to palpation. Liver and spleen nonpalpable below costal margin. EXTREMITIES: Reveal 2+ radial and pedal pulses bilaterally. No ankle edema is present. NEUROLOGIC: Reveals no focal deficits present. PERTINENT LABORATORY FINDINGS: Today includes a CBC with 11,900 white blood cells, hemoglobin 17.0, hematocrit is 51.9, platelet count is 270,000. Metabolic profile: Sodium 140, potassium is 4.0, chl oride is 109, bicarbonate is 22, BUN. I have personally reviewed a CT scan of the abdomen and pelvis, which was obtained on 01/20/2018. Th is shows multiple distended loops of small bowel with near obstructing mass in the junction of the de scending colon and sigmoid colon. I do not see any pneumatosis intestinalis on pneumoperitoneum to s uggest perforation. Minimum free fluid is noted. I have also reviewed the CT scan of the chest, whi ch was obtained today, which is unremarkable for any acute intrathoracic pathology. IMPRESSION: 1. Nearly obstructing left colonic mass, likely malignant neoplasm. 2. Morbid obesity. 3. History of type 2 diabetes mellitus, noncompliant. 4. History of essential hypertension, noncompliant. RECOMMENDATIONS: 1. Exploratory laparotomy with partial colectomy and primary anastomosis if adequate bowel prep is a chieved tonight, otherwise, we will proceed with colectomy with temporary end colostomy. 2. Above findings and recommendation has been discussed with the patient and adult sister at bedside . I have advised the patient of the risks and benefits of the proposed surgery. Risks include, but not limited to bleeding, infection, injury to bowel or surrounding structures. Additionally, the pat ient is at risk for anastomotic leak should primary anastomosis be performed. The patient indicates understanding of this information, I have given him today. I answered his questions. Thank you again, Dr. Suarez, for allowing me the opportunity to participate in the care of this tian ent.
[2018-01-23] MEDS ORDERED: Rocuronium Bromide 50 MG/5 ML VIAL ONE (09:15)
[2018-01-23] MEDS ORDERED: Ondansetron HCl/PF 4 MG/2 ML Vial IVP PRN ×2 (11:10→11:32)
[2018-01-23] MEDS ORDERED: Promethazine HCl 25 MG/ML VIAL IM PRN ×2 (11:10→11:32)
[2018-01-23] MEDS ORDERED: Promethazine HCl 25 MG/ML VIAL SLOW IVP PRN (11:10)
[2018-01-23] MEDS ORDERED: Succinylcholine Chloride 20 MG/ML 10 ml SYRINGE FS ONE (11:28)
[2018-01-23] MEDS ORDERED: PHENYLEPHRINE-NS 100 MCG/ML 10 ML SYRINGE ONE (11:28)
[2018-01-23] MEDS ORDERED: Dexamethasone 20 MG/5 ML VIAL ONE (11:28)
[2018-01-23] MEDS ORDERED: Glycopyrrolate 0.2 MG/ML 5 ML SYRINGE ONE (11:28)
[2018-01-23] MEDS ORDERED: PROPOFOL 200 MG/20 ML VIAL ONE (11:28)
[2018-01-23] MEDS ORDERED: Lidocaine 1% PF 5 ML VIAL ONE (11:28)
[2018-01-23] MEDS ORDERED: Vecuronium 10 MG VIAL ONE (11:28)
[2018-01-23] MEDS ORDERED: Ondansetron HCl/PF 4 MG/2 ML Vial ONE (11:28)
[2018-01-23] MEDS ORDERED: diphenhydrAMINE 50 MG/ML VIAL IM PRN (11:32)
[2018-01-23] MEDS ORDERED: Naloxone HCl 0.4 mg/ml Vial IV PRN (11:32)
[2018-01-23] MEDS ORDERED: diphenhydrAMINE 25 MG CAP PO PRN (11:32)
[2018-01-23] MEDS ORDERED: HYDROmorphone 10 mg/100 ml CADD IVPB PRN (11:32)
[2018-01-23] MEDS ORDERED: diphenhydrAMINE 50 MG/ML VIAL IVP PRN (11:32)
[2018-01-23] MEDS ORDERED: Fentanyl 100 MCG/2 ML VIAL ONE (11:35)
[2018-01-23] MEDS ORDERED: Communication Order-Pharmacy FS SCH (11:45)
--- NOTE | 2018-01-23 11:58 | OP ---
DATE OF OPERATION: 01/23/2018 PREOPERATIVE DIAGNOSES: 1. Left colonic neoplasm. 2. Acute large bowel obstruction secondary to #1. POSTOPERATIVE DIAGNOSES: 1. Left colonic neoplasm. 2. Acute large bowel obstruction secondary to #1. PROCEDURES PERFORMED: 1. Exploratory laparotomy. 2. Partial left colectomy with end colostomy. SURGEON: Paolo Cruz D.O. ANESTHESIA: General endotracheal. ESTIMATED BLOOD LOSS: 100 mL. FLUIDS GIVEN: 3000 mL crystalloids. COUNTS: Sponge and instrument counts were correct x2. COMPLICATIONS: None apparent at time of operation. INDICATIONS FOR PROCEDURE: A 52-year-old man presented with worsening inability to have bowel moveme nt or pass flatus. Abdomen was distended. Clinical and radiographic examination was consistent with a near obstructing left colonic mass. Following failure of bowel prep, the patient was brought to the operating room for an exploratory lap arotomy. Findings are consistent with a descending colonic obstructive mass and markedly dilated small and lar ge bowel proximal to the lesion. DESCRIPTION OF PROCEDURE: Informed consent obtained from the patient who was brought to the operatin g room and placed in supine position. Following general anesthesia, abdomen is sterilely prepped and draped in usual fashion. A midline incision is made using #10 scalpel. Incision was carried throug h subcutaneous tissues maintaining hemostasis using thermocautery. Fascia is incised in midline expo sing the peritoneum beneath which was grasped x2 with hemostats. The peritoneal cavity was sharply e ntered using Metzenbaum scissors. Incision was then extended superiorly and posteriorly using cauter y with good hemostasis. Bookwalter retractor was put in place to gain exposure. Large amount of asc itic fluid was evacuated from the peritoneal cavity. Small bowel was then run from the ligament of T kathy down to terminal ileum. Aside from distended small bowel no lesions were noted. Large intestine was inspected from the dilated cecum through the ascending, transverse, descending co long down to the level of an obstructive mass at the junction of the descending colon and sigmoid colo n. Mass is stated to the lateral gutter. Distal to these obstructive mass, the sigmoid colon is without any abnormality. The rectum was also palpated free of any masses within the deep pelvis. The liver is palpated free of any abnormalities. Gallbladder is probably in the usual anatomic locat ion devoid of stones. Previous nasogastric tube was palpated within the gastric lumen. The spleen is palpated in the left upper quadrant. Finding no other pathology. We then decided to proceed with resection of the left colonic mass. The left colon was mobilized along the white line of Toldt using Metzenbaum scissors. I then created a rent 4-5 cm distal to the involved obstructive mass. Through this, a DARREN stapler was introduced a nd the bowel was divided. I then created another rent through the mesentery of the descending colon 6 cm proximal to the obstructive mass. A DARREN stapler was again introduced and the bowel was divided. Mesentery of the specimen is serially divided using LigaSure with good hemostasis. The specimen wa s passed off the operative field for transmission to pathology. The proximal staple line was marked with a suture. Finding no other pathology, the abdominal cavity is then copiously irrigated with jez ine. Note that prior to a partial colectomy I placed a pursestring suture right above the obstructive segm ent using 3-0 silk. Colotomy was made there and I passed a suction catheter and secured this with a pursestring suture. I evacuated a liter of liquid stool. The proximal suture was then closed to min imize contamination with the peritoneal cavity. I examined the staple end of the descending colon and the bowel there appeared a little dusky, but th ere was still peristalsis present. The bowel was quite edematous. I observed this for several minut es and it was starting to pink up. I then decided to proceed with a colostomy maturation. To achiev e this a core incision was made in the left lower quadrant using a 10 scalpel. Incision was carried down to the level of fascia using cautery with good hemostasis. I made a crucifix incision on the fa scia. I then introduced a tonsil clamp through this advancing this into the peritoneal cavity. The core defect was dilated to 3 fingerbreadths. A [place] grasper was then introduced grasping the stap led end of the descending colon which was pulled through the core defect. This was secured within th e peritoneal cavity using 3-0 silk suture at 3 points. Small bowel was noted in normal anatomic loca tion. Omentum is drawn over the remainder of the viscera. All sponges and instruments were reported as correct. Fascia was approximated in midline using a running stitch of #1 single stranded PDS. S ubcutaneous tissue was approximated using interrupted sutures of 2-0 Vicryl. The skin is closed with yasmin and sterile dressings were applied. I then excised the stapled end of the descending colon. A functional [place] colostomy is achieved using interrupted sutures of 2-0 chromic. Ostomy appliance was then put in place. The patient tolerated the operation without any apparent com plication and was returned to recovery room in satisfactory condition.
[2018-01-23] MEDS: Ketorolac Tromethamine 30 MG/ML VIAL IVP SCH ×2 (16:41→17:44)
--- NOTE | 2018-01-23 18:52 | PDOC.PN ---
- Subjective Encounter Start Date: 01/23/18 Encounter Start Time: 18:51 Pt seen for followup re: bowel obstruction. Denies nausea or vomiting. Feels tired. - Objective MAR Reviewed: Yes Vital Signs & Weight: Vital Signs (12 hours) Temp Pulse Resp BP Pulse Ox 01/23/18 16:00 92 L 01/23/18 14:50 98.1 F 114 H 16 158/92 H 92 L Weight Weight 339 lb 2 oz I&O: 01/22/18 01/23/18 01/24/18 06:59 06:59 06:59 Intake Total 4700 Output Total 500 Balance -500 4700 Result Diagrams: 01/23/18 04:03 01/23/18 04:03 Additional Labs: Accuchecks 01/23/18 01/23/18 17:50 00:25 POC Glucose 146 H 137 H Labs reviewed by me Phys Exam - Physical Examination Morbid obesity HEENT: moist MMs, sclera anicteric, oral pharynx no lesions, 2+ tonsils Neck: no nodes, no JVD, supple, full ROM Respiratory: no wheezing, no rales, no rhonchi, clear to auscultation bilateral S1, s2, tachy, reg Gastrointestinal: soft, positive bowel sounds dressing, ostomy Neurological: moves all 4 limbs Psychiatric: normal affect, A&O x 3 Dx/Plan (1) Bowel obstruction Code(s): K56.609 - UNSP INTESTNL OBST, UNSP TO PARTIAL VERSUS COMPLETE OBST Status: Acute Comment: due to colon mass (2) Colonic mass Code(s): K63.9 - DISEASE OF INTESTINE, UNSPECIFIED Status: Acute Comment: s/ p surgery today, await path report (3) Conjunctivitis Code(s): H10.9 - UNSPECIFIED CONJUNCTIVITIS Status: Acute Comment: continue ciprofloxacin drops (4) Hypertensive urgency Code(s): I16.0 - HYPERTENSIVE URGENCY Status: Acute Comment: On PRN IV antihypertensives for now, will start beta sreekanth when pt is able to take oral medications (5) DM2 (diabetes mellitus, type 2) Status: Chronic Comment: continue accuchecks, insulin sliding scale - Plan * . Review of Systems - Review of Systems Constitutional: negative: fever, chills, sweats, weakness, malaise Respiratory: negative: Cough, Shortness of Breath, SOB with Excertion, Pleuritic Pain, Wheezing Cardiovascular: negative: chest pain, palpitations, orthopnea, paroxysmal nocturnal dyspnea, edema, light headedness Gastrointestinal: negative: Nausea, Vomiting, Abdominal Pain, Diarrhea, Constipation, Melena, Hematochezia Genitourinary: negative: Dysuria, Frequency, Incontinence, Hematuria, Retention Skin: negative: Rash, Lesions, Gui, Bruising - Medications/Allergies Allergies/Adverse Reactions: Allergies Allergy/AdvReac Type Severity Reaction Status Date / Time No Known Drug Allergies Allergy Verified 01/20/18 19:56 Medications: Current Medications Albuterol/Ipratropium (Duoneb) 3 ml NEB [id number] [facility] Last Admin: 01/23/18 12:57 Dose: Not Given Ciprofloxacin (Ciprofloxacin Hcl) 1 drop EA EYE Q6HR [facility] Last Admin: 01/23/18 17:45 Dose: 1 drop Clonidine ([place]-Srf-6 Patch) 0.1 mg TD Q7DAYS [facility] Last Admin: 01/21/18 16:16 Dose: 0.1 mg Dextrose/Water (Dextrose 50%) 25 gm SLOW IVP PRN PRN PRN Reason: Hypoglycemia Diphenhydramine HCl (Benadryl) 25 mg IVP Q3H PRN PRN Reason: Itching Diphenhydramine HCl (Benadryl) 25 mg PO Q3H PRN PRN Reason: Itching Diphenhydramine HCl (Benadryl) 25 mg IM Q3H PRN PRN Reason: Itching Enalaprilat (Vasotec) 1.25 mg SLOW IVP Q6HR PRN PRN Reason: SBP Greater Than 180 Glucagon (Glucagon) 1 mg IM PRN PRN PRN Reason: Hypoglycemia Hydromorphone HCl (Dilaudid Cadd) 0 mg IVPB INF PRN PRN Reason: Pain Dextrose/Water (D5w) 1,000 mls @ 0 mls/hr IV .Q0M PRN; As Directed PRN Reason: Hypoglycemia Sodium Chloride (Normal Saline 0.9%) 1,000 mls @ 70 mls/hr IV .[id number] [facility] Last Admin: 01/23/18 17:45 Dose: 1,000 mls Piperacillin Sod/Tazobactam (Sod 4.5 gm/ Sodium Chloride) 100 mls @ 200 mls/hr IVPB ONCALL-OR DENNIS Insulin Human Lispro (Humalog) 0 units SC .MILD SLIDING SCALE PRN PRN Reason: Mild Correctional Scale Ketorolac Tromethamine (Toradol) 15 mg IVP Q6HR [facility] Stop: 01/25/18 12:01 Last Admin: 01/23/18 17:44 Dose: 15 mg Labetalol HCl (Normodyne) 10 mg SLOW IVP Q3H PRN PRN Reason: SBP > 180, DBP > 100 Last Admin: 01/23/18 04:19 Dose: 10 mg Naloxone HCl (Narcan) 0.2 mg IV Q5MIN PRN PRN Reason: Opiate Reversal Ondansetron HCl (Zofran) 4 mg IVP Q6H PRN PRN Reason: Nausea/Vomiting Promethazine HCl (Phenergan) 12.5 mg IM Q4H PRN PRN Reason: Nausea/Vomiting Sodium Chloride (Flush - Normal Saline) 10 ml IVF PRN PRN PRN Reason: Saline Flush
[2018-01-24] MEDS: Ketorolac Tromethamine 30 MG/ML VIAL IVP SCH ×5 (01:01→23:30)
[2018-01-24] MEDS ORDERED: Sodium Chloride 0.9% 10 ML ONE (09:05)
[2018-01-24] MEDS: Enoxaparin Sodium 40 MG/0.4 ML SYRINGE SC SCH ×2 (09:06→20:00)
--- NOTE | 2018-01-24 11:32 | PRG ---
DATE OF SERVICE: 01/24/2018 SUBJECTIVE: This is a 52-year-old male that we are seeing in consultation who had a chief complaint of right lower quadrant abdominal pain and evidence of obstructing colonic mass. The patient is post op day #1 status post exploratory laparotomy, excision of mass and partial left colectomy with end co lostomy. There were no acute overnight events. Upon evaluation this morning, the patient states julieta n has been well controlled; however, he has not yet been out of bed. OBJECTIVE: VITAL SIGNS: Temperature 98.8, pulse 108, respirations 20, O2 sat 92% on room air, blood pressure 17 5/89. GENERAL: Resting in bed in no acute distress. PULMONARY: Normal work of breathing. Symmetric rise. CARDIOVASCULAR: Tachycardic. ABDOMEN: Soft with minimal generalized tenderness. Surgical dressing is clean, dry, and intact. Os gerard appears dark, but viable at this time. There is no stool or gas in the ostomy bag. MUSCULOSKELETAL: Moves all extremities. NEUROLOGIC: No focal deficit noted. LABORATORY DATA: No new laboratory findings. ASSESSMENT: 1. Large bowel obstruction. 2. Colonic neoplasm. 3. Postop day #1 status post exploratory laparotomy, left colectomy and end colostomy. PLAN: Continue supportive care as ordered. Pain control with [employer]. Encourage mobility and initiate physical therapy. Pathology pending. Await return of bowel function. The patient may continue to h ave ice chips at this time. A.m. labs. Patient was seen and evaluated with Dr. Cruz. Family and micheal benitez were updated on plan of care. All questions were answered at the time of this dictation.
[2018-01-24] MEDS: Labetalol HCl 100 MG/20 ML VIAL SLOW IVP PRN (12:00)
[2018-01-24] MEDS: Sodium Chloride 0.9% 1,000 ML IV SCH ×3 (12:09→23:31)
--- NOTE | 2018-01-24 14:39 | PDOC.PN ---
- Subjective Encounter Start Date: 01/24/18 Encounter Start Time: 09:00 Pt seen for followup re: colon mass. Denies chest pain, shortness of breath, fevers or chills. - Objective MAR Reviewed: Yes Vital Signs & Weight: Vital Signs (12 hours) Temp Pulse Resp BP BP BP Pulse Ox 01/24/18 12:33 112 H 20 94 L 01/24/18 12:00 128 H 181/99 H 01/24/18 11:43 98.9 F 129 H 20 181/99 H 93 L 01/24/18 07:05 98.8 F 108 H 20 175/89 H 92 L 01/24/18 06:55 110 H 16 94 L 01/24/18 04:39 99.5 F 113 H 16 158/93 H 92 L Weight Weight 339 lb 2 oz I&O: 01/23/18 01/24/18 01/25/18 06:59 06:59 06:59 Intake Total 4700 990 Output Total 3150 Balance 4700 -2160 Result Diagrams: 01/23/18 04:03 01/23/18 04:03 Additional Labs: Accuchecks 01/24/18 01/24/18 01/23/18 11:47 06:02 23:30 POC Glucose 125 H 133 H 155 H 01/23/18 17:50 POC Glucose 146 H Labs reviewed by me Phys Exam - Physical Examination morbid obesity HEENT: moist MMs, sclera anicteric, oral pharynx no lesions, 2+ tonsils Neck: no nodes, no JVD, supple, full ROM Respiratory: no wheezing, no rales, no rhonchi, clear to auscultation bilateral Cardiovascular: RRR, no rub S1, s2 Gastrointestinal: soft, non-tender, positive bowel sounds ostomy+ Neurological: moves all 4 limbs Psychiatric: normal affect Dx/Plan (1) Colonic mass Code(s): K63.9 - DISEASE OF INTESTINE, UNSPECIFIED Status: Acute Comment: await biopsy report (2) Bowel obstruction Code(s): K56.609 - UNSP INTESTNL OBST, UNSP TO PARTIAL VERSUS COMPLETE OBST Status: Acute Comment: due to colon mass, s/p surgery yesterday to remove colon mass (3) Conjunctivitis Code(s): H10.9 - UNSPECIFIED CONJUNCTIVITIS Status: Acute Comment: on ciprofloxacin drops (4) Hypertensive urgency Code(s): I16.0 - HYPERTENSIVE URGENCY Status: Acute Comment: On PRN IV antihypertensives for now, start beta sreekanth when pt is able to take oral medications (5) DM2 (diabetes mellitus, type 2) Status: Chronic Comment: on accuchecks, insulin sliding scale - Plan * . Review of Systems - Review of Systems Constitutional: negative: fever, chills, sweats, weakness, malaise Cardiovascular: negative: chest pain, palpitations, orthopnea, paroxysmal nocturnal dyspnea, edema, light headedness Gastrointestinal: Abdominal Pain. negative: Nausea, Vomiting, Diarrhea, Constipation, Melena, Hematochezia Genitourinary: negative: Dysuria, Frequency, Incontinence, Hematuria, Retention Skin: negative: Rash, Lesions, Gui, Bruising Neurological: negative: Weakness, Numbness, Incoordination, Change in Speech, Confusion, Seizures - Medications/Allergies Allergies/Adverse Reactions: Allergies Allergy/AdvReac Type Severity Reaction Status Date / Time No Known Drug Allergies Allergy Verified 01/20/18 19:56 Medications: Current Medications Albuterol/Ipratropium (Duoneb) 3 ml NEB [id number] [facility] Last Admin: 01/24/18 12:33 Dose: 3 ml Ciprofloxacin (Ciprofloxacin Hcl) 1 drop EA EYE Q6HR [facility] Last Admin: 01/24/18 12:08 Dose: 1 drop Clonidine ([id number]-[id number] Patch) 0.1 mg TD Q7DAYS [facility] Last Admin: 01/21/18 16:16 Dose: 0.1 mg Dextrose/Water (Dextrose 50%) 25 gm SLOW IVP PRN PRN PRN Reason: Hypoglycemia Diphenhydramine HCl (Benadryl) 25 mg IVP Q3H PRN PRN Reason: Itching Diphenhydramine HCl (Benadryl) 25 mg PO Q3H PRN PRN Reason: Itching Diphenhydramine HCl (Benadryl) 25 mg IM Q3H PRN PRN Reason: Itching Enalaprilat (Vasotec) 1.25 mg SLOW IVP Q6HR PRN PRN Reason: SBP Greater Than 180 Enoxaparin Sodium (Lovenox) 40 mg SC 0900,2100 [facility] Last Admin: 01/24/18 09:06 Dose: 40 mg Glucagon (Glucagon) 1 mg IM PRN PRN PRN Reason: Hypoglycemia Hydralazine HCl (Apresoline) 10 mg SLOW IVP Q4H PRN PRN Reason: SBP>160 Hydromorphone HCl (Dilaudid Cadd) 0 mg IVPB INF PRN PRN Reason: Pain Dextrose/Water (D5w) 1,000 mls @ 0 mls/hr IV .Q0M PRN; As Directed PRN Reason: Hypoglycemia Sodium Chloride (Normal Saline 0.9%) 1,000 mls @ 70 mls/hr IV .[id number] [facility] Last Admin: 01/24/18 12:09 Dose: Not Given Piperacillin Sod/Tazobactam (Sod 4.5 gm/ Sodium Chloride) 100 mls @ 200 mls/hr IVPB ONCALL-OR [facility] Insulin Human Lispro (Humalog) 0 units SC .MILD SLIDING SCALE PRN PRN Reason: Mild Correctional Scale Ketorolac Tromethamine (Toradol) 15 mg IVP Q6HR [facility] Stop: 01/25/18 12:01 Last Admin: 01/24/18 12:08 Dose: 15 mg Labetalol HCl (Normodyne) 10 mg SLOW IVP Q3H PRN PRN Reason: SBP > 180, DBP > 100 Last Admin: 01/24/18 12:00 Dose: 10 mg Naloxone HCl (Narcan) 0.2 mg IV Q5MIN PRN PRN Reason: Opiate Reversal Ondansetron HCl (Zofran) 4 mg IVP Q6H PRN PRN Reason: Nausea/Vomiting Promethazine HCl (Phenergan) 12.5 mg IM Q4H PRN PRN Reason: Nausea/Vomiting Sodium Chloride (Flush - Normal Saline) 10 ml IVF PRN PRN PRN Reason: Saline Flush
[2018-01-24] MEDS: hydrALAZINE 20 MG/ML VIAL SLOW IVP PRN ×2 (17:57→23:38)
[2018-01-25] MEDS: Ketorolac Tromethamine 30 MG/ML VIAL IVP SCH (05:41)
[2018-01-25] MEDS: hydrALAZINE 20 MG/ML VIAL SLOW IVP PRN ×2 (05:45→23:48)
[2018-01-25 05:54] LABS: #Lymphocytes 0.9 thou/uL (1.20-3.40); %Basophils 0.4 % (0.0-1.0); %Eosinophils 0.4 % (0.0-10.0); %Lymphocytes 13.3 % (21.0-51.0); %Monocytes 14.5 % (0.0-10.0); %Neutrophils 71.5 % (42.0-75.0); Hemoglobin 14.1 g/dL (14.0-18.0); Mean Corpuscular HGB CONC 31.7 g/dL (32.0-36.0); Mean Corpuscular Hemoglobin 28.6 pg (27.0-31.0); Mean Corpuscular Volume 90.2 fL (78.0-98.0); Mean Platelet Volume 9.7 fL (7.4-10.4); Platelet Count 199 thou/uL (130-400); Red Blood Cell (RBC) Count 4.92 mill/uL (4.70-6.10)
[2018-01-25 06:16] LABS: Anion Gap 14 mmol/L (10-20); BUN (Urea Nitrogen) 23 mg/dL (8.4-25.7); Calc. Creatinine Clearance 204 mL/min (70-130); Calcium 8.8 mg/dL (7.8-10.44); Carbon Dioxide 26 mmol/L (22-29); Chloride 110 mmol/L (98-107); Estimated GFR-MDRD 88; Glucose 127 mg/dL (70-105); Magnesium 2.3 mg/dL (1.6-2.6); Sodium 147 mmol/L (136-145)
[2018-01-25 06:22] LABS: Phosphorus 1.6 mg/dL (2.3-4.7); Potassium 2.7 mmol/L (3.5-5.1)
[2018-01-25] MEDS ORDERED: Dextrose 5 %-0.45 % NaCl 1,000 ML IV SCH (07:45)
[2018-01-25] MEDS: Labetalol HCl 100 MG/20 ML VIAL SLOW IVP PRN (08:02)
[2018-01-25] MEDS: Enoxaparin Sodium 40 MG/0.4 ML SYRINGE SC SCH ×2 (08:18→21:12)
[2018-01-25] MEDS ORDERED: traMADol HCl 50 MG TAB PO PRN (09:35)
[2018-01-25] MEDS ORDERED: Amlodipine 10 MG TAB PO SCH (10:30)
[2018-01-25] MEDS: Acetaminophen 500 MG TAB PO SCH ×3 (12:36→23:32)
[2018-01-25] MEDS: traMADol HCl 50 MG TAB PO SCH ×3 (12:37→23:31)
[2018-01-25] MEDS ORDERED: cloNIDine 0.1 MG TAB PO PRN (12:41)
[2018-01-25] MEDS ORDERED: Lisinopril 5 MG TAB PO SCH (12:45)
[2018-01-25] MEDS ORDERED: Potassium Phosphate 15 MMOL in Sodium Chloride 0.9% 250 ML 250 ML IVPB SCH (14:00)
--- NOTE | 2018-01-25 14:06 | PRG ---
DATE OF SERVICE: 01/25/2018 SUBJECTIVE: Mr. Park is a 52-year-old man who is postop day #2 status post exploratory lapar otomy, left colectomy and colostomy. The patient is awake and alert today. He reports adequate pain control. Colostomy has got a large output of liquid stool and occasional gas. OBJECTIVE: VITAL SIGNS: This morning includes blood pressure 176/109, pulse is 117, respiratory rate is 22, tem perature is 98 degrees Fahrenheit. Oxygen saturation is 93% on room air. HEENT: Reveals normocephalic and atraumatic. Pupils are equal, round, and reactive to light and acc ommodation. Extraocular muscles are intact bilaterally. HEART: Reveals regular rate and rhythm, no murmurs or gallops auscultated. LUNGS: Clear to auscultation bilaterally. Breathing regular and unlabored. ABDOMEN: Soft and obese. Colostomy appears viable and quite functional. LABORATORY DATA: This morning includes a CBC with 7000 white blood cells, hemoglobin and hematocrit 14.1 and 44.3 respectively. Platelet count is 199,000. Metabolic profile: Sodium 147, potassium is 2.7, chloride is 110, bicarbonate is 26, BUN 23, creatinine 0.90, glucose 127. Phosphorus is 1.6. Magnesium is 2.3. IMPRESSION: 1. Postop day #2, status post exploratory laparotomy and left colectomy and colostomy. 2. Acute hypokalemia. 3. Acute hypophosphatemia. PLAN: 1. Nasogastric tube will be discontinued today. 2. We will correct abnormal electrolytes. 3. I will initiate a clear liquid diet and increase activity. The above findings and plan discussed with the patient and his adult sister at bedside. They both in dicated understanding of information given. I have answered their questions.
[2018-01-25] MEDS: Ibuprofen 600 MG TAB PO SCH ×2 (14:33→21:12)
[2018-01-25] MEDS ORDERED: Metoprolol Tartrate 50 MG TAB PO SCH (17:45)
--- NOTE | 2018-01-25 21:10 | PDOC.PN ---
- Subjective Encounter Start Date: 01/25/18 Encounter Start Time: 13:00 Patient seen and examined for bowel obstruction. No new complaints. Pain controlled. No N/V. No overnight events - Objective MAR Reviewed: Yes Vital Signs & Weight: Vital Signs (12 hours) Temp Pulse Resp BP BP Pulse Ox 01/25/18 20:19 97.7 F 115 H 20 112/78 96 01/25/18 19:06 116 H 20 93 L 01/25/18 17:25 125 H 182/116 H 01/25/18 15:08 98.3 F 121 H 22 H 203/106 H 92 L 01/25/18 13:59 120 H 20 96 01/25/18 12:40 199/130 H 01/25/18 11:52 97.8 F 120 H 22 H 93 L Weight Admit Weight 339 lb 2 oz Weight 339 lb 2 oz I&O: 01/24/18 01/25/18 01/26/18 06:59 06:59 06:59 Intake Total 2313 2290 Output Total 7675 1150 Balance -5362 1140 Result Diagrams: 01/26/18 05:22 01/26/18 05:22 Additional Labs: Accuchecks 01/25/18 01/25/18 01/25/18 20:53 17:46 11:56 POC Glucose 140 H 130 H 110 01/25/18 01/24/18 05:51 23:22 POC Glucose 117 H 118 H Laboratory Tests 01/25/18 05:06 Potassium 2.7 L* Phosphorus 1.6 L Magnesium 2.3 Radiology Reviewed by me: Yes (Chest CT - negative) Phys Exam - Physical Examination Constitutional: NAD Respiratory: no wheezing, no rhonchi Cardiovascular: RRR, no rub Gastrointestinal: soft mild gen tenderness Dx/Plan (1) Bowel obstruction Code(s): K56.609 - UNSP INTESTNL OBST, UNSP TO PARTIAL VERSUS COMPLETE OBST Status: Acute Plan: Cont post op care Comment: due to colon mass, s/p surgery (2) Colonic mass Code(s): K63.9 - DISEASE OF INTESTINE, UNSPECIFIED Status: Acute Comment: Await biopsy (3) Conjunctivitis Code(s): H10.9 - UNSPECIFIED CONJUNCTIVITIS Status: Acute Comment: on ciprofloxacin eye drops, improving (4) Hypertensive urgency Code(s): I16.0 - HYPERTENSIVE URGENCY Status: Acute Plan: Add ACEI, Started on Amlodipine earlier today, Will add Clonidine PRN (5) Electrolyte abnormality Code(s): E87.8 - OTH DISORDERS OF ELECTROLYTE AND FLUID BALANCE, NEC Status: Acute Plan: Will replace Comment: Hypokalemia/Hypophosphatemia (6) DM2 (diabetes mellitus, type 2) Status: Chronic Qualifiers: Chronic kidney disease stage: stage 2 (mild) Comment: on insulin sliding scale - Plan plan discussed w/ family, out of bed/ambulate, DVT proph w/SCDs Review of Systems - Review of Systems Respiratory: negative: Cough, Dry, Shortness of Breath, Hemoptysis, SOB with Excertion, Pleuritic Pain, Sputum, Wheezing Cardiovascular: negative: chest pain, palpitations, orthopnea, paroxysmal nocturnal dyspnea, edema, light headedness, other - Medications/Allergies Allergies/Adverse Reactions: Allergies Allergy/AdvReac Type Severity Reaction Status Date / Time No Known Drug Allergies Allergy Verified 01/20/18 19:56 Medications: Current Medications Acetaminophen (Tylenol) 1,000 mg PO Q6HR [facility] Last Admin: 01/25/18 18:13 Dose: 1,000 mg Albuterol/Ipratropium (Duoneb) 3 ml NEB [id number] [facility] Last Admin: 01/25/18 19:06 Dose: 3 ml Amlodipine Besylate (Norvasc) 10 mg PO DAILY [facility] Ciprofloxacin (Ciprofloxacin Hcl) 1 drop EA EYE Q6HR [facility] Last Admin: 01/25/18 18:28 Dose: 1 drop Clonidine (Catapres) 0.1 mg PO Q4H PRN PRN Reason: Systolic BP > 180 Last Admin: 01/25/18 13:15 Dose: 0.1 mg Dextrose/Water (Dextrose 50%) 25 gm SLOW IVP PRN PRN PRN Reason: Hypoglycemia Enalaprilat (Vasotec) 1.25 mg SLOW IVP Q6HR PRN PRN Reason: SBP Greater Than 180 Last Admin: 01/24/18 14:41 Dose: 1.25 mg Enoxaparin Sodium (Lovenox) 40 mg SC 0900,2100 [facility] Last Admin: 01/25/18 08:18 Dose: 40 mg Glucagon (Glucagon) 1 mg IM PRN PRN PRN Reason: Hypoglycemia Hydralazine HCl (Apresoline) 10 mg SLOW IVP Q4H PRN PRN Reason: SBP>160 Last Admin: 01/25/18 05:45 Dose: 10 mg Dextrose/Water (D5w) 1,000 mls @ 0 mls/hr IV .Q0M PRN; As Directed PRN Reason: Hypoglycemia Piperacillin Sod/Tazobactam (Sod 4.5 gm/ Sodium Chloride) 100 mls @ 200 mls/hr IVPB ONCALL-OR [facility] Ibuprofen (Motrin) 600 mg PO Q8HR [facility] Last Admin: 01/25/18 14:33 Dose: 600 mg Insulin Human Lispro (Humalog) 0 units SC .MILD SLIDING SCALE PRN PRN Reason: Mild Correctional Scale Labetalol HCl (Normodyne) 10 mg SLOW IVP Q3H PRN PRN Reason: SBP > 180, DBP > 100 Last Admin: 01/25/18 08:02 Dose: 10 mg Lisinopril (Zestril) 5 mg PO DAILY [facility] Metoprolol Tartrate (Lopressor) 50 mg PO BID [facility] Naloxone HCl (Narcan) 0.2 mg IV Q5MIN PRN PRN Reason: Opiate Reversal Ondansetron HCl (Zofran) 4 mg IVP Q6H PRN PRN Reason: Nausea/Vomiting Promethazine HCl (Phenergan) 12.5 mg IM Q4H PRN PRN Reason: Nausea/Vomiting Sodium Chloride (Flush - Normal Saline) 10 ml IVF PRN PRN PRN Reason: Saline Flush Tramadol HCl (Ultram) 50 mg PO Q6HR [facility] Last Admin: 01/25/18 18:13 Dose: 50 mg Tramadol HCl (Ultram) 50 mg PO Q6H PRN PRN Reason: Breakthrough Pain
[2018-01-26 05:51] LABS: #Eosinphils 0.1 thou/uL (0.0-0.7); #Lymphocytes 1.1 thou/uL (1.20-3.40); %Basophils 0.2 % (0.0-1.0); %Eosinophils 1.4 % (0.0-10.0); %Lymphocytes 11.9 % (21.0-51.0); %Neutrophils 75.6 % (42.0-75.0); Hemoglobin 13.2 g/dL (14.0-18.0); Mean Corpuscular HGB CONC 32.8 g/dL (32.0-36.0); Mean Corpuscular Hemoglobin 29.8 pg (27.0-31.0); Mean Platelet Volume 9.5 fL (7.4-10.4); Platelet Count 185 thou/uL (130-400); RBC Distribution Width 12.7 % (11.5-14.5); Red Blood Cell (RBC) Count 4.41 mill/uL (4.70-6.10); White Blood Cell (WBC) Count 9.2 thou/uL (4.8-10.8)
[2018-01-26 06:06] LABS: Albumin 3.1 g/dL (3.5-5.0); Anion Gap 11 mmol/L (10-20); BUN (Urea Nitrogen) 15 mg/dL (8.4-25.7); BUN/Creatinine Ratio 18.75; Calc. Creatinine Clearance 230 mL/min (70-130); Calcium 8.5 mg/dL (7.8-10.44); Carbon Dioxide 29 mmol/L (22-29); Chloride 105 mmol/L (98-107); Estimated GFR-MDRD Greater than 90; Glucose 116 mg/dL (70-105); Magnesium 1.9 mg/dL (1.6-2.6); Phosphorus 2.5 mg/dL (2.3-4.7); Potassium 2.5 mmol/L (3.5-5.1); Sodium 142 mmol/L (136-145)
[2018-01-26] MEDS: Ibuprofen 600 MG TAB PO SCH ×3 (06:36→21:13)
[2018-01-26] MEDS: Acetaminophen 500 MG TAB PO SCH ×4 (06:36→23:58)
[2018-01-26] MEDS: traMADol HCl 50 MG TAB PO SCH ×4 (06:37→23:59)
[2018-01-26] MEDS: Potassium Chloride 20 MEQ TAB PO SCH ×2 (06:38→10:10)
[2018-01-26] MEDS ORDERED: Amlodipine 10 MG TAB PO SCH (09:00)
[2018-01-26] MEDS ORDERED: Lisinopril 5 MG TAB PO SCH (09:00)
[2018-01-26] MEDS ORDERED: Potassium Phosphate 30 MMOL in Sodium Chloride 0.9% 500 ML IVPB SCH (09:30)
[2018-01-26] MEDS ORDERED: Magnesium Sulfate 4 GM in Sodium Chloride 0.9% 250 ML 250 ML IVPB SCH (09:30)
[2018-01-26] MEDS ORDERED: Potassium Phosphate 30 MMOL, Magnesium Sulfate 4 GM in Sodium Chloride 0.9% 500 ML IVPB SCH (09:30)
[2018-01-26] MEDS: Amlodipine 5 MG TAB PO SCH ×2 (10:15→21:12)
[2018-01-26] MEDS: Metoprolol Tartrate 50 MG TAB PO SCH ×2 (10:15→21:13)
[2018-01-26] MEDS: Enoxaparin Sodium 40 MG/0.4 ML SYRINGE SC SCH ×2 (10:16→21:13)
--- NOTE | 2018-01-26 13:42 | PRG ---
DATE OF SERVICE: 01/26/2018 SUBJECTIVE: Mr. Park is a 52-year-old man who is postoperative day #4 today status post expl oratory laparotomy, left colectomy with end colostomy. The patient is awake and alert today. He reports adequate pain control. He is tolerating a liquid d iet and having adequate bowel movements. He ambulates with minimum difficulty. OBJECTIVE: VITAL SIGNS: Today includes blood pressure was 155/94, pulse is 107, respiratory rate 16, temperatur e is 98.2 degrees Fahrenheit. Oxygen saturation is 93% on room air. HEENT: Reveals normocephalic and atraumatic. HEART: Reveals regular rate with sinus tachycardia. No murmurs or gallops auscultated. LUNGS: Lungs are clear to auscultation bilaterally. Breathing regular and unlabored. ABDOMEN: Soft with mild incisional tenderness to palpation. Incisions itself remains intact, clean, and dry. Colostomy is viable with ischemic necrosis of the mucosa circumferentially and peripheral ly nevertheless. The ostomy is functioning with liquid stool and gas. NEUROLOGIC: Reveals no focal deficits present. LABORATORY DATA: Today includes CBC with 9200 white blood cells, hemoglobin and hematocrit are 13.2 and 40.1 respectively. Platelet count is 185,000. Metabolic profile: Sodium 142, potassium is 2.5, chloride is 105, bicarbonate is 29, BUN 15, creatinine 0.80, glucose is 116, magnesium 1.9, phosphor us is 2.5. IMPRESSION: 1. Postoperative day #3 status post left colectomy with end colostomy. 2. Acute hypokalemia. 3. Acute hypomagnesemia. 4. Acute hypophosphatemia. 5. Uncontrolled essential hypertension. PLAN: 1. Correct abnormal electrolytes. 2. We will increase the MATTHEW inhibitor. Continue beta sreekanth at current dose. 3. Increase activity as tolerated. 4. I will advance diet to a carb consistent diet at 2400 calories. The above findings and plan discussed with the patient who indicates understanding of information giv en. The results of the pathology specimen is still pending and will consider Oncology consultation o nce the pathology report is resulted.
--- NOTE | 2018-01-26 21:08 | PDOC.PN ---
- Subjective Encounter Start Date: 01/26/18 Encounter Start Time: 13:30 Patient seen and examined for bowel obstruction/colon mass. Pain controlled. Sitting on chair. Tolerating current diet. No new complaints. No overnight events. - Objective MAR Reviewed: Yes Vital Signs & Weight: Vital Signs (12 hours) Temp Pulse Resp BP BP Pulse Ox 01/26/18 20:30 98 F 95 16 158/79 H 95 01/26/18 19:16 104 H 18 96 01/26/18 15:18 98.8 F 100 18 130/88 01/26/18 14:55 98.8 F 100 12 130/88 95 01/26/18 12:59 96 18 173/96 H 01/26/18 11:05 98.8 F 110 H 20 187/113 H 92 L 01/26/18 10:15 107 H 01/26/18 10:14 107 H 01/26/18 09:30 114 H 16 Weight Admit Weight 339 lb 2 oz Weight 339 lb 2 oz I&O: 01/25/18 01/26/18 01/27/18 06:59 06:59 06:59 Intake Total 2313 2290 1100 Output Total 7675 2050 900 Balance -5362 240 200 Result Diagrams: 01/26/18 05:22 01/26/18 05:22 Additional Labs: Accuchecks 01/26/18 01/26/18 01/26/18 16:00 11:04 06:35 POC Glucose 131 H 104 108 Phys Exam - Physical Examination Constitutional: NAD Respiratory: no wheezing, no rhonchi Cardiovascular: RRR, no rub Gastrointestinal: soft, non-tender, positive bowel sounds Dx/Plan (1) Bowel obstruction Code(s): K56.609 - UNSP INTESTNL OBST, UNSP TO PARTIAL VERSUS COMPLETE OBST Status: Acute Comment: due to colon mass, s/p surgery (2) Colonic mass Code(s): K63.9 - DISEASE OF INTESTINE, UNSPECIFIED Status: Acute Comment: Await biopsy (3) Conjunctivitis Code(s): H10.9 - UNSPECIFIED CONJUNCTIVITIS Status: Acute (4) Hypertensive urgency Code(s): I16.0 - HYPERTENSIVE URGENCY Status: Acute Comment: improving (5) Electrolyte abnormality Code(s): E87.8 - OTH DISORDERS OF ELECTROLYTE AND FLUID BALANCE, NEC Status: Acute Comment: Hypokalemia/Hypophosphatemia (6) DM2 (diabetes mellitus, type 2) Status: Chronic Qualifiers: Chronic kidney disease stage: stage 2 (mild) Comment: on insulin sliding scale - Plan continue antibiotics, out of bed/ambulate, DVT proph w/SCDs Cont Amlodipine, Lisinopril and Lopressor -: Scripts sent to [facility] per Javon (med assist) -: Replace Potassium -: AM labs -: Cont current meds as below Review of Systems - Review of Systems Respiratory: negative: Cough, Dry, Shortness of Breath, Hemoptysis, SOB with Excertion, Pleuritic Pain, Sputum, Wheezing Cardiovascular: negative: chest pain, palpitations, orthopnea, paroxysmal nocturnal dyspnea, edema, light headedness, other - Medications/Allergies Allergies/Adverse Reactions: Allergies Allergy/AdvReac Type Severity Reaction Status Date / Time No Known Drug Allergies Allergy Verified 01/20/18 19:56 Medications: Current Medications Acetaminophen (Tylenol) 1,000 mg PO Q6HR [facility] Last Admin: 01/26/18 17:56 Dose: 1,000 mg Albuterol/Ipratropium (Duoneb) 3 ml NEB [id number] [facility] Last Admin: 01/26/18 19:16 Dose: 3 ml Amlodipine Besylate (Norvasc) 5 mg PO BID [facility] Last Admin: 01/26/18 10:15 Dose: 5 mg Clonidine (Catapres) 0.1 mg PO Q4H PRN PRN Reason: Systolic BP > 180 Last Admin: 01/25/18 13:15 Dose: 0.1 mg Dextrose/Water (Dextrose 50%) 25 gm SLOW IVP PRN PRN PRN Reason: Hypoglycemia Enalaprilat (Vasotec) 1.25 mg SLOW IVP Q6HR PRN PRN Reason: SBP Greater Than 180 Last Admin: 01/24/18 14:41 Dose: 1.25 mg Enoxaparin Sodium (Lovenox) 40 mg SC 0900,2100 [facility] Last Admin: 01/26/18 10:16 Dose: 40 mg Glucagon (Glucagon) 1 mg IM PRN PRN PRN Reason: Hypoglycemia Hydralazine HCl (Apresoline) 10 mg SLOW IVP Q4H PRN PRN Reason: SBP>160 Last Admin: 01/25/18 23:48 Dose: 10 mg Dextrose/Water (D5w) 1,000 mls @ 0 mls/hr IV .Q0M PRN; As Directed PRN Reason: Hypoglycemia Piperacillin Sod/Tazobactam (Sod 4.5 gm/ Sodium Chloride) 100 mls @ 200 mls/hr IVPB ONCALL-OR [facility] Ibuprofen (Motrin) 600 mg PO Q8HR [facility] Last Admin: 01/26/18 15:59 Dose: Not Given Insulin Human Lispro (Humalog) 0 units SC .MILD SLIDING SCALE PRN PRN Reason: Mild Correctional Scale Labetalol HCl (Normodyne) 10 mg SLOW IVP Q3H PRN PRN Reason: SBP > 180, DBP > 100 Last Admin: 01/25/18 08:02 Dose: 10 mg Lisinopril (Zestril) 20 mg PO DAILY [facility] Metoprolol Tartrate (Lopressor) 50 mg PO BID [facility] Last Admin: 01/26/18 10:15 Dose: 50 mg Naloxone HCl (Narcan) 0.2 mg IV Q5MIN PRN PRN Reason: Opiate Reversal Ondansetron HCl (Zofran) 4 mg IVP Q6H PRN PRN Reason: Nausea/Vomiting Promethazine HCl (Phenergan) 12.5 mg IM Q4H PRN PRN Reason: Nausea/Vomiting Sodium Chloride (Flush - Normal Saline) 10 ml IVF PRN PRN PRN Reason: Saline Flush Tramadol HCl (Ultram) 50 mg PO Q6HR [facility] Last Admin: 01/26/18 17:56 Dose: 50 mg Tramadol HCl (Ultram) 50 mg PO Q6H PRN PRN Reason: Breakthrough Pain
[2018-01-27 05:26] LABS: Potassium 3.5 mmol/L (3.5-5.1)
[2018-01-27] MEDS: traMADol HCl 50 MG TAB PO SCH ×4 (06:13→23:21)
[2018-01-27] MEDS: Acetaminophen 500 MG TAB PO SCH ×4 (06:13→23:21)
[2018-01-27] MEDS: Ibuprofen 600 MG TAB PO SCH ×3 (06:13→21:01)
[2018-01-27] MEDS: Enoxaparin Sodium 40 MG/0.4 ML SYRINGE SC SCH ×2 (08:02→21:01)
[2018-01-27] MEDS: Metoprolol Tartrate 50 MG TAB PO SCH ×2 (08:05→21:01)
[2018-01-27] MEDS: Amlodipine 5 MG TAB PO SCH ×2 (08:05→21:00)
[2018-01-27] MEDS: Lisinopril 20 MG TAB PO SCH (08:05)
--- NOTE | 2018-01-27 09:58 | PRG ---
DATE OF SERVICE: 01/27/2018 SUBJECTIVE: Mr. Park is a 52-year-old obese man who is postoperative day #4 status post expl oratory laparotomy and left colectomy with end colostomy for obstructing colonic neoplasm. 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 He reports adequate pain control today. He is tolerating a general diet. Ostomy has been quite functional. Ur inary output is adequate. OBJECTIVE: VITAL SIGNS: Today include blood pressure 149/84, pulse 81, respiratory rate is 16, temperature is 9 7.8 degrees Fahrenheit, oxygen saturation is 97% on room air. HEENT: Examination reveals normocephalic and atraumatic. HEART: Reveals regular rate and rhythm. No murmurs or gallops are auscultated. LUNGS: Clear to auscultation bilaterally. His breathing is regular and unlabored. ABDOMEN: Soft and obese. Incision remains intact, clean and dry with minimum serous drainage from t he inferior pole of the midline incision. Colostomy is viable and functional with liquid stool and g as. NEUROLOGIC: Examination reveals no focal deficits present. IMPRESSION: 1. Postoperative day #4 status post exploratory laparotomy and left colectomy. 2. Stage II moderately differentiated adenocarcinoma. 3. Stable essential hypertension. PLAN: 1. Oncology consultation regarding the new diagnosis of colon cancer. 2. Increase activity as tolerated. The patient is otherwise hemodynamically stable.
[2018-01-27] MEDS: Amoxicillin/Potassium Clav 875 MG TAB PO SCH ×2 (10:10→21:01)
[2018-01-27] MEDS ORDERED: Potassium Chloride 20 MEQ TAB PO SCH ×2 (11:00→17:00)
--- NOTE | 2018-01-27 15:08 | EKG ---
Test Reason : Blood Pressure : / mmHG Vent. Rate : 115 BPM Atrial Rate : 115 BPM P-R Int : 150 ms QRS Dur : 108 ms QT Int : 356 ms P-R-T Axes : 064 094 044 degrees QTc Int : 492 ms Sinus tachycardia Rightward axis Inferior infarct , age undetermined Abnormal ECG Confirmed by BEE EMERY D.O. ([id number]), web content editor DENIA DAVID ([id number]) on 01/27/2018 3:08:08 PM Referred By: Confirmed By:BEE EMERY D.O.
--- NOTE | 2018-01-27 20:35 | PDOC.PN ---
- Subjective Encounter Start Date: 01/27/18 Encounter Start Time: 12:30 Patient seen and examined for bowel obstruction. Pain controlled. BP improving. No new complaints. No overnight events - Objective MAR Reviewed: Yes Vital Signs & Weight: Vital Signs (12 hours) Temp Pulse Resp BP BP Pulse Ox 01/27/18 20:00 98.1 F 94 18 128/83 98 01/27/18 19:11 92 16 96 01/27/18 16:00 98.0 F 88 16 146/88 H 98 01/27/18 13:03 89 18 95 01/27/18 11:52 98.0 F 90 16 146/86 H 96 01/27/18 10:59 97.8 F 81 16 97 Weight Admit Weight 339 lb 2 oz Weight 339 lb 2 oz I&O: 01/26/18 01/27/18 01/28/18 06:59 06:59 06:59 Intake Total 2290 1100 820 Output Total 2050 900 450 Balance 240 200 370 Result Diagrams: 01/26/18 05:22 01/27/18 04:43 Additional Labs: Accuchecks 01/27/18 01/27/18 01/27/18 15:34 11:07 06:12 POC Glucose 112 H 123 H 102 01/27/18 00:01 POC Glucose 97 Phys Exam - Physical Examination Constitutional: NAD Respiratory: no wheezing, no rhonchi Cardiovascular: RRR, no rub Gastrointestinal: soft, non-tender, positive bowel sounds Stomy + Musculoskeletal: no edema Neurological: moves all 4 limbs Dx/Plan (1) Bowel obstruction Code(s): K56.609 - UNSP INTESTNL OBST, UNSP TO PARTIAL VERSUS COMPLETE OBST Status: Acute Comment: due to colon mass, s/p surgery (2) Colonic mass Code(s): K63.9 - DISEASE OF INTESTINE, UNSPECIFIED Status: Acute Comment: New Colon Cancer (3) Hypertensive urgency Code(s): I16.0 - HYPERTENSIVE URGENCY Status: Acute Comment: improving (4) Electrolyte abnormality Code(s): E87.8 - OTH DISORDERS OF ELECTROLYTE AND FLUID BALANCE, NEC Status: Acute Comment: Hypokalemia/Hypophosphatemia (5) DM2 (diabetes mellitus, type 2) Status: Chronic Qualifiers: Chronic kidney disease stage: stage 2 (mild) Comment: on insulin sliding scale (6) Conjunctivitis Code(s): H10.9 - UNSPECIFIED CONJUNCTIVITIS Status: Resolved - Plan out of bed/ambulate, DVT proph w/lovenox, DVT proph w/SCDs Cont current HTN meds -: Cont sliding scale -: Await Oncology input -: Cont to monitor Review of Systems - Review of Systems Respiratory: negative: Cough, Dry, Shortness of Breath, Hemoptysis, SOB with Excertion, Pleuritic Pain, Sputum, Wheezing Cardiovascular: negative: chest pain, palpitations, orthopnea, paroxysmal nocturnal dyspnea, edema, light headedness, other - Medications/Allergies Allergies/Adverse Reactions: Allergies Allergy/AdvReac Type Severity Reaction Status Date / Time No Known Drug Allergies Allergy Verified 01/20/18 19:56 Medications: Current Medications Acetaminophen (Tylenol) 1,000 mg PO Q6HR [facility] Last Admin: 01/27/18 17:24 Dose: 1,000 mg Albuterol/Ipratropium (Duoneb) 3 ml NEB [id number] [facility] Last Admin: 01/27/18 19:11 Dose: 3 ml Amlodipine Besylate (Norvasc) 5 mg PO BID [facility] Last Admin: 01/27/18 08:05 Dose: 5 mg Amoxicillin/Clavulanate Potassium (Augmentin) 875 mg PO Q12HR [facility] Stop: 01/31/18 21:01 Last Admin: 01/27/18 10:10 Dose: 875 mg Dextrose/Water (Dextrose 50%) 25 gm SLOW IVP PRN PRN PRN Reason: Hypoglycemia Enalaprilat (Vasotec) 1.25 mg SLOW IVP Q6HR PRN PRN Reason: SBP Greater Than 180 Last Admin: 01/24/18 14:41 Dose: 1.25 mg Enoxaparin Sodium (Lovenox) 40 mg SC 0900,2100 [facility] Last Admin: 01/27/18 08:02 Dose: 40 mg Glucagon (Glucagon) 1 mg IM PRN PRN PRN Reason: Hypoglycemia Hydralazine HCl (Apresoline) 10 mg SLOW IVP Q4H PRN PRN Reason: SBP>160 Last Admin: 01/25/18 23:48 Dose: 10 mg Dextrose/Water (D5w) 1,000 mls @ 0 mls/hr IV .Q0M PRN; As Directed PRN Reason: Hypoglycemia Piperacillin Sod/Tazobactam (Sod 4.5 gm/ Sodium Chloride) 100 mls @ 200 mls/hr IVPB ONCALL-OR DENNIS Ibuprofen (Motrin) 600 mg PO Q8HR [facility] [place] Last Admin: 01/27/18 14:19 Dose: 600 mg Insulin Human Lispro (Humalog) 0 units SC .MILD SLIDING SCALE PRN PRN Reason: Mild Correctional Scale Labetalol HCl (Normodyne) 10 mg SLOW IVP Q3H PRN PRN Reason: SBP > 180, DBP > 100 Last Admin: 01/25/18 08:02 Dose: 10 mg Lisinopril (Zestril) 20 mg PO DAILY [facility] Last Admin: 01/27/18 08:05 Dose: 20 mg Metoprolol Tartrate (Lopressor) 50 mg PO BID [facility] Last Admin: 01/27/18 08:05 Dose: 50 mg Naloxone HCl (Narcan) 0.2 mg IV Q5MIN PRN PRN Reason: Opiate Reversal Ondansetron HCl (Zofran) 4 mg IVP Q6H PRN PRN Reason: Nausea/Vomiting Promethazine HCl (Phenergan) 12.5 mg IM Q4H PRN PRN Reason: Nausea/Vomiting Sodium Chloride (Flush - Normal Saline) 10 ml IVF PRN PRN PRN Reason: Saline Flush Tramadol HCl (Ultram) 50 mg PO Q6HR [facility] Last Admin: 01/27/18 17:24 Dose: 50 mg Tramadol HCl (Ultram) 50 mg PO Q6H PRN PRN Reason: Breakthrough Pain
--- NOTE | 2018-01-28 03:19 | CON ---
DATE OF CONSULTATION: 01/28/2018 REASON FOR CONSULTATION: Carcinoma of the colon. HISTORY OF PRESENT ILLNESS: This is a 52-year-old male, who was admitted with right lower quadrant abdominal pain and diarrhea. He also had blood in the stool. Flexible sigmoidoscopy showed a near obstructive colonic mass at 50 cm past the anal verge. Biopsy showed a tubulovillous adenoma with high grade dysplasia. CT scan of the abdomen and pelvis favored the diagnosis of an obstructiv e process at the level of descending and sigmoid colon junction. There was no retroperitoneal adenop athy or liver metastasis. CT scan of the chest was negative for metastasis. The patient underwent l aparotomy on 01/23/2018. This showed a descending colon obstructive mass. He underwent partial left colectomy with end colostomy and the patient is recovering from surgery without any problems. PAST MEDICAL HISTORY: Positive for diabetes and hypertension. PAST SURGICAL HISTORY: None. OUTPATIENT MEDICATIONS: None. ALLERGIES: None reported. PERSONAL AND SOCIAL HISTORY: The patient does not smoke, but he drinks rarely. He works for [employer]. He lives in [place]. [facility] PHYSICAL EXAMINATION: GENERAL: The patient is alert and oriented. HEENT: Unremarkable. LYMPHATICS: There is no peripheral lymphadenopathy in cervical, supraclavicular, axillary or inguina l area. CHEST: Clear to percussion and auscultation. HEART: S1, S2. There is no murmur. ABDOMEN: Soft. Bowel sounds normal. A colostomy wound is located in the right lower quadrant. No other masses, hepatosplenomegaly or lymphadenopathy was noted. LABORATORY DATA: CBC is within normal limits. Chemistry profile was also within normal limits excep t for potassium of 2.5 and albumin of 2.1. CEA was not done preoperatively. CT scan of chest, abdom en, and pelvis as mentioned above. Path report showed 4.3 x 3.5 x 1.5 cm invasive mucinous adenocarc inoma, moderately differentiated. The tumor invaded through the muscularis propria into pericolonic tissue. All resection margins were free, 10 lymph nodes were negative. ASSESSMENT AND RECOMMENDATIONS: This patient has [id number] stage IIA obstructing carcinoma of the [facility]. Normally chemotherapy not recommended for stage IIA disease. However, I am concerned about the near obstructing nature of the tumor and plan to see him back in the office in about 2 wee ks. By that time, I will have additional studies including MMR testing on his tumor. At that time, decision will be made whether to offer him chemotherapy in view of the fact that he had obstructive d isease. Thanks very much for allowing me to participate in this patient's care.
[2018-01-28] MEDS: Acetaminophen 500 MG TAB PO SCH ×2 (05:47→12:25)
[2018-01-28] MEDS: traMADol HCl 50 MG TAB PO SCH ×2 (05:47→12:25)
[2018-01-28] MEDS: Ibuprofen 600 MG TAB PO SCH ×2 (05:47→14:46)
[2018-01-28] MEDS: Amoxicillin/Potassium Clav 875 MG TAB PO SCH (08:06)
[2018-01-28] MEDS: Amlodipine 5 MG TAB PO SCH (08:06)
[2018-01-28] MEDS: Lisinopril 20 MG TAB PO SCH (08:06)
[2018-01-28] MEDS: Metoprolol Tartrate 50 MG TAB PO SCH (08:07)
[2018-01-28] MEDS: Enoxaparin Sodium 40 MG/0.4 ML SYRINGE SC SCH (08:07)
[2018-01-28] MEDS ORDERED: cloNIDine 0.1mg/24 Hour PATCH TD SCH (09:00)
[2018-01-28 10:55] VITALS: BP 132/81; TEMP 97.9
--- NOTE | 2018-01-29 14:53 | DIS ---
DATE OF DISCHARGE: 01/28/2018 DISCHARGE DISPOSITION: Home. FOLLOWUP: Follow up with primary care physician at [facility] in 1 week. Follow up with Dr Kayli Cruz on 02/07/2018. Follow up with Dr. Hutson, Oncology, in 1 week. The patient was seen and examined on the day of discharge. Denies any new complaints. No chest pain , shortness of breath, palpitations. DISCHARGE MEDICATIONS: 1. Augmentin 875 mg twice a day. 2. Tramadol as needed. 3. Metoprolol tartrate 50 mg twice a day. 4. Lisinopril 5 mg twice a day. 5. Clonidine as needed. 6. Amlodipine 5 mg twice a day. The patient was advised to monitor his blood pressure on a daily basis and to maintain a log. BRIEF HOSPITAL COURSE: The patient is a 52-year-old male with diabetes mellitus type 2 and hypertens ion, who presented to the hospital with constipation. He underwent a CT scan of the abdomen that was consistent with a bowel obstruction with large colon mass. The patient's colonoscopy was performed by Dr. Bustos that showed a large fungating and friable mass at approximately 50 cm past the anal verg e. Biopsies were obtained. General Surgery was consulted for colonic resection, which was performed on 01/23/2018. He has done well so far. He is comfortable taking care of his colostomy. His patho logy was consistent with moderately differentiated invasive mucinous adenocarcinoma. He was seen by Dr. Hutson who will follow up as outpatient. The patient had hypertensive urgency with some possible EKG changes on admission, for which he was ev aluated by Cardiology, Dr. Rubi. Per Dr. Rubi, it was an incorrect interpretation on the EKG computer. Echocardiogram was performed that showed ejection fraction 60%-65% with diastolic dysfunc tion and mild mitral regurgitation. His blood pressure improved with the above medications. Please note that he was not taking any medications at home prior to admission. His blood pressure on the da y of discharge was 132/81. He was advised to monitor his blood pressure on a daily basis and to main tain a log. Lifestyle modification including weight reduction was emphasized. FINAL DIAGNOSES: 1. New diagnosis of mucinous adenocarcinoma of the colon, status post resection, presenting as bowel obstruction. 2. Hypertensive urgency on admission, resolved. 3. Morbid obesity with a BMI 43.5. 4. Diabetes mellitus type 2, diet controlled. His blood sugar on the day of discharge is 89, 107, a nd 123. He will benefit from metformin as outpatient. 5. Sinus tachycardia, resolved. 6. Abnormal electrocardiogram. 7. Electrolyte imbalance including hyponatremia with lower sodium of 2.5. 8. Hypernatremia. 9. Dehydration on admission, resolved. 10. Leukocytosis on admission unlikely to be infectious. 11. Conjunctivitis, which was treated with ciprofloxacin eyedrops, resolved. Total time coordinating the discharge of this patient was 38 minutes.
--- NOTE | 2018-01-29 18:02 | EKG ---
Test Reason : ROUTINE Blood Pressure : / mmHG Vent. Rate : 114 BPM Atrial Rate : 114 BPM P-R Int : 154 ms QRS Dur : 110 ms QT Int : 348 ms P-R-T Axes : 072 069 059 degrees QTc Int : 479 ms Sinus tachycardia with Premature supraventricular complexes Otherwise normal ECG When compared with ECG of 20-JAN-2018 15:12, (Unconfirmed) Premature supraventricular complexes are now Present Confirmed by DR. Mckenna CASTANEDA ([id number]) on 01/29/2018 6:02:01 PM Referred By: Confirmed By:DR. Mckenna CASTANEDA
== END 2018-01-28 14:41 | disposition home or self-care (01) | DRG 330 ==
LOC: ERS 14:41 → ONC 19:21 → SJJU 01-23 15:25
PROVIDERS: ADMIT Internal Medicine; ATTEND Internal Medicine
PROC: 0DBM8ZX Excision of Descending Colon, Via Natural or Artificial Opening Endoscopic, Diagnostic (ICD-10-PCS; 2018-01-22)
PROC: 0DBG0ZZ Excision of Left Large Intestine, Open Approach (ICD-10-PCS; principal; 2018-01-23)
PROC: 0D1M0Z4 Bypass Descending Colon to Cutaneous, Open Approach (ICD-10-PCS; 2018-01-23)
DX: C18.9 Malignant neoplasm of colon, unspecified (principal); Z68.41 Body mass index [BMI] 40.0-44.9, adult; E87.1 Hypo-osmolality and hyponatremia; E87.0 Hyperosmolality and hypernatremia; K56.609 Unspecified intestinal obstruction, unspecified as to partial versus complete obstruction; I16.0 Hypertensive urgency; E66.01 Morbid (severe) obesity due to excess calories; R00.0 Tachycardia, unspecified; E86.0 Dehydration; H10.9 Unspecified conjunctivitis; I12.9 Hypertensive chronic kidney disease with stage 1 through stage 4 chronic kidney disease, or unspecified chronic kidney disease; E11.22 Type 2 diabetes mellitus with diabetic chronic kidney disease; N18.2 Chronic kidney disease, stage 2 (mild); E87.6 Hypokalemia; E83.42 Hypomagnesemia; E83.39 Other disorders of phosphorus metabolism; E83.52 Hypercalcemia
CPT/HCPCS: 36415; 36416; 71260; 74019; 74022; 74177; 80048; 80053; 80061; 80069; 81003; 81015; 82274; 82378; 83690; 83735; 84100; 84132; 85025; 88305; 88309; 88313; 93005; 93010; 93306; 94640; 96360; 96374; A4216; G8978-GP-CM; G8979-GP-CJ; J0360; J1100; J1650; J1885; J2001; J2250; J2270; J2405; J2543; J2704; J3010; J3475; J7050; J7620

== ENCOUNTER 2018-01-31 12:07 | Inpatient (IN) | payer OTHER, SELFPAY ==
[2018-01-31] MEDS ORDERED: ISOVUE-370 76%-LOCM 1 ML ONE (12:56)
[2018-01-31] MEDS ORDERED: Iopamidol 370 76% 50 ML VIAL FS ONE (12:56)
[2018-01-31 12:59] LABS: #Lymphocytes 0.5 thou/uL (1.20-3.40); #Monocytes 1.1 thou/uL (0.11-0.59); #Neutrophils 17.3 thou/uL (1.40-6.50); %Basophils 0.1 % (0.0-1.0); %Eosinophils 0.1 % (0.0-10.0); %Lymphocytes 2.9 % (21.0-51.0); %Monocytes 5.7 % (0.0-10.0); %Neutrophils 91.2 % (42.0-75.0); Mean Corpuscular HGB CONC 33.9 g/dL (32.0-36.0); Mean Corpuscular Hemoglobin 30.2 pg (27.0-31.0); Mean Corpuscular Volume 89.2 fL (78.0-98.0); Mean Platelet Volume 8.1 fL (7.4-10.4); Platelet Count 279 thou/uL (130-400); RBC Distribution Width 12.7 % (11.5-14.5); Red Blood Cell (RBC) Count 4.32 mill/uL (4.70-6.10)
[2018-01-31] MEDS ORDERED: Meropenem 2 GM in Sodium Chloride 0.9% 100 ML IVPB SCH ×2 (13:15→20:30)
[2018-01-31 13:23] LABS: ALT (SGPT) 34 U/L (8-55); AST (SGOT) 31 U/L (5-34); Albumin 2.9 g/dL (3.5-5.0); Alkaline Phosphatase 93 U/L (40-150); Anion Gap 15 mmol/L (10-20); BUN (Urea Nitrogen) 11 mg/dL (8.4-25.7); Calc. Creatinine Clearance 0 mL/min (70-130); Calcium 8.6 mg/dL (7.8-10.44); Carbon Dioxide 30 mmol/L (22-29); Chloride 96 mmol/L (98-107); Estimated GFR-MDRD 74; Globulin 3.1 g/dL (2.4-3.5); Glucose 181 mg/dL (70-105); Sodium 138 mmol/L (136-145)
[2018-01-31 13:28] LABS: Potassium 2.8 mmol/L (3.5-5.1)
[2018-01-31] MEDS ORDERED: PROPOFOL 200 MG/20 ML VIAL ONE (13:58)
[2018-01-31] MEDS ORDERED: Succinylcholine Chloride 20 MG/ML 10 ml SYRINGE FS ONE (13:58)
[2018-01-31] MEDS ORDERED: Lidocaine 1% PF 5 ML VIAL ONE (13:58)
[2018-01-31] MEDS ORDERED: ePHEDrine/0.9% NaCl/PF SYRINGE 50 mg/10 ml ONE (13:58)
[2018-01-31] MEDS ORDERED: Acetaminophen 500 MG TAB ONE (14:07)
[2018-01-31] MEDS ORDERED: Ketorolac Tromethamine 30 MG/ML VIAL ONE (14:10)
[2018-01-31] MEDS ORDERED: Potassium Chloride 20 MEQ TAB ONE (14:11)
[2018-01-31] MEDS ORDERED: Fentanyl 100 MCG/2 ML VIAL ONE (14:12)
[2018-01-31] MEDS ORDERED: Dextrose 50% Abboject 50 ML SYRINGE SLOW IVP PRN ×2 (14:26→19:38)
[2018-01-31] MEDS ORDERED: Ondansetron HCl/PF 4 MG/2 ML Vial IVP PRN ×3 (14:26→21:20)
[2018-01-31] MEDS ORDERED: Dextrose 5% in Water 1,000 ML IV PRN ×2 (14:26→19:37)
[2018-01-31] MEDS ORDERED: Promethazine HCl 25 MG/ML VIAL IM PRN ×3 (14:26→21:20)
[2018-01-31] MEDS ORDERED: Morphine 4 MG/ML VIAL SLOW IVP PRN ×2 (14:26→19:38)
[2018-01-31] MEDS ORDERED: traMADol HCl 50 MG TAB PO PRN ×3 (14:29→19:38)
[2018-01-31] MEDS ORDERED: Sodium Chloride 0.9% 1,000 ML IV SCH (14:30)
[2018-01-31] MEDS ORDERED: Acetaminophen 500 MG TAB PO SCH (14:30)
[2018-01-31 15:13] LABS: Bilirubin Negative (Negative); Blood, Urine Moderate (Negative); Clarity CLOUDY (Clear); Glucose, Urine (Dipstick) Negative (Negative); Leukocyte Negative (Negative); Nitrite Negative (Negative); Protein, Urine (Dipstick) 100 mg/dL (Neg-Trace); Specific Gravity, Urine 1.015 (1.002-1.036); Urobilinogen 0.2 mg/dL (0.2-1.0)
[2018-01-31 15:20] LABS: Bacteria/HPF None Seen HPF (None Seen); RBC/HPF 21-50 HPF (0-3)
[2018-01-31 15:27] LABS: Pathc Cast-AUWi Flag 2.76 (0-2.49)
--- NOTE | 2018-01-31 15:34 | CT ---
ABDOMEN CT WITH CONTRAST PELVIC CT WITH CONTRAST: Date: 01/31/18 COMPARISON: 01/20/18. CORRELATION: Chest CT dated 01/22/18. TECHNIQUE: Abdomen and pelvic CT performed with IV contrast. Coronal reformatted images are submitted for interp retation. FINDINGS: ABDOMEN CT: There are areas of scarring/atelectasis in the right lower lobe, which have decreased when compared t o the prior exam. Normal cardiac silhouette. The descending thoracic aorta and abdominal aorta have a normal caliber. No periaortic fat stranding. Portal vein is patent. Gallbladder is unremarkable. Liver, spleen, pancreas, and adrenal glands have appropriate attenuation and enhancement. No gastrohepatic, retrocrural, or periportal lymphadenopathy. No mesenteric mass or lymphadenopathy. There is stranding of the ventral abdominal mesentery. There i s dehiscence of the ventral abdominal wall with a small hernia containing mesenteric fat. A punctate area of air just superficial to the peritoneal lining is noted in the midline of the abdomen. There i s a left lower quadrant ostomy involving what appears to be a segment of small bowel. There is indura tion of the fat along with subcutaneous emphysema of the fat at the level of the ostomy. Drainable a bscess is not appreciated. There is no evidence of bowel obstruction. Ileocecal junction is normal. Normal caliber appendix. [place] el loops are decompressed and there is mucosal thickening which may in part be due to decompression. Correlate clinically. PELVIC CT: No mass, lymphadenopathy, free air, or free fluid. Urinary bladder is unremarkable. No lytic or blastic lesions in the osseous structures. IMPRESSION: 1. Mucosal irregularity involving small bowel loops, likely due to inadequate distention. 2. Postsurgical changes as described above. There is induration and emphysema in the subcutaneous fa t, in the midline, as well as at the level of a left-sided ileostomy. No evidence of a drainable absc ess. POS: [facility]
[2018-01-31 15:44] LABS: Hyaline Casts/LPF 0-3 HYALINE CAST LPF (0-3 Hyaline); Other Casts/LPF 0-3 COARSE GRAN LPF (0-3 Hyaline); Renal Epithelial 0-3 HPF (0-3)
[2018-01-31] MEDS ORDERED: Midazolam HCl 2 mg/2 ml Vial ONE (20:07)
[2018-01-31] MEDS ORDERED: Fentanyl 250 MCG/5 ML VIAL ONE (20:07)
[2018-01-31] MEDS ORDERED: Enoxaparin Sodium 40 MG/0.4 ML SYRINGE SC SCH (21:00)
[2018-01-31] MEDS ORDERED: Promethazine HCl 25 MG/ML VIAL SLOW IVP PRN (21:20)
[2018-01-31] MEDS: Enoxaparin Sodium 40 MG/0.4 ML SYRINGE SC SCH (22:57)
[2018-01-31] MEDS: Sodium Chloride 0.9% 1,000 ML IV SCH (23:15)
[2018-01-31] MEDS: Acetaminophen 500 MG TAB PO SCH (23:15)
--- NOTE | 2018-01-31 23:47 | HP ---
DATE OF ADMISSION: 01/31/2018 PRIMARY CARE PHYSICIAN: Ryan Cabral. CHIEF COMPLAINT: Postop wound infection. HISTORY OF PRESENT ILLNESS: Mr. Park is a pleasant 52-year-old gentleman who was seen in the emergency room on 01/31/2018, accompanied by his sister in the ER. He complains of having drainage from his midline wound. He is status post bowel resection on 01/23/2018, newly diagnosed colon cance r, mucinous adenocarcinoma. Patient had exploratory laparotomy and left colectomy. Patient currentl y denies any fever or chills. The midline yasmin were removed by ____ and wound care was consulted to assist in the ER as the wound edges was red and obvious stool from the colostomy leaking into the wound, causing the redness and infection. The wound was then irrigated with normal saline. The colo stomy bag was also removed and replaced by Wound Care. PAST MEDICAL HISTORY: Diabetes mellitus type 2 and hypertension. PAST SURGICAL HISTORY: Recent status post bowel resection with a left colectomy. SOCIAL HISTORY: Patient denies tobacco use, alcohol use or recreational drug use. FAMILY HISTORY: Reports significant for multiple family members with heart problems including a [facility] er who had a minor heart attack. ALLERGIES: No known drug allergies. CURRENT MEDICATIONS: Augmentin 875 mg twice a day, tramadol as needed, metoprolol 50 mg twice a day, lisinopril 5 mg twice a day, clonidine as needed, amlodipine 5 mg twice a day. PHYSICAL EXAMINATION: GENERAL: On examination, Mr. Park is awake and alert, in no distress. He is an obese patien t. There is a foul odor as he entered the ER room, most likely secondary to colostomy as he is in th e process of emptying his bag with stool. VITAL SIGNS: Blood pressure 134/80, pulse is 96, respiratory rate is 16, SpO2 is 95% on room air, te mperature is 100.0 oral. EYES: Unremarkable. HEENT: He has moist mucous membranes. No oropharyngeal erythema or exudate. NECK: He has normal range of motion, nontender. Trachea is midline. RESPIRATORY: He had equal chest wall movement. LUNGS: Clear to auscultation without any wheezes, rhonchi, or rales. CARDIOVASCULAR: S1, S2 were heard. Rate is regular. Peripheral pulses are palpable. ABDOMEN: Obese. Midline incision with erythema. Obvious leakage of stool from his colostomy runnin g into the incision site. NEUROLOGIC: Cranial nerves are intact. MUSCULOSKELETAL: Power is 5/5. He moves all extremities. SKIN: There are no rashes or subcutaneous nodules, although he does have bruising to the abdomen fro m previous Lovenox injections from his hospital stay. LABORATORY DATA AND IMAGING DATA: WBC 19.0, RBC 4.32, hemoglobin is 13.0, hematocrit 38.5, platelet count is 279, neutrophils are 91.2, lymphocytes are 2.9, ____ 17.3, sodium is 138, potassium is 2.8, chloride is 96, carbon dioxide is 30, BUN is 11, creatinine is 1.05, glucose is 181. Lactate is 2.0, calcium is 8.6, total bilirubin is 1.0, AST is 31, ALT 34, alkaline phosphatase 93. Serum total pro tein is 6.0, albumin is 2.9, globulin is 3.1, albumin-globulin ratio is 0.9. CT abdomen with contras t is still pending at this time. ASSESSMENT: 1. Wound infection secondary to stool from new colostomy. 2. Status post bowel resection with left colectomy. 3. New onset colon cancer. 4. Hypokalemia. 5. Leukocytosis. PLAN: The patient is n.p.o. and has been n.p.o. since 08:30 this morning. He will go for irrigation and debridement of wound infection today. We will continue his IV maintenance fluids and we will di scontinue the fluid postop. We will continue his IV antibiotics. We will place the patient on a reg ular diet postop. We will consult Wound Care to help manage his colostomy. Consult PT, OT and consu lt case management for placement to a residential facility as the patient has not been able to pr operly care for his new colostomy bag at this time. Family does agree that this is a good decision f or the patient as he has been having difficulty in maintaining at himself. We will continue to monit or his electrolytes.
[2018-02-01 00:33] VITALS: BMI 41.2
--- NOTE | 2018-02-01 02:51 | OP ---
DATE OF OPERATION: 01/31/2018 PREOPERATIVE DIAGNOSES: 1. Infected abdominal wound. 2. Status post left colectomy with end colostomy for obstructing colon cancer. POSTOPERATIVE DIAGNOSES: 1. Infected abdominal wound. 2. Status post left colectomy with end colostomy for obstructing colon cancer. PROCEDURE PERFORMED: Incision and drainage of abdominal wound infection. SURGEON: Paolo Cruz DO ANESTHESIA: General endotracheal. ESTIMATED BLOOD LOSS: Less than 10 mL. FLUIDS GIVEN: 700 mL of crystalloids. SPONGE AND INSTRUMENT COUNT: Certified as correct x2. COMPLICATIONS: None apparent at the time of operation. INDICATIONS FOR PROCEDURE: This is a 52-year-old man who is almost 2 weeks status post exploratory l aparotomy and left colectomy for obstructing colon cancer. The patient presented to the emergency de partment today with drainage from the abdominal incisional wound. Clinical examination was consisten t with infected abdominal wound. The colostomy appliance was violated and the abdominal wound was co ntaminated with stool. DESCRIPTION OF PROCEDURE: Informed consent obtained from the patient, who was brought to the operati ng room and placed in supine position. Following general anesthesia, the abdomen was sterilely prepp ed and draped in the usual fashion. Care was taken to prep of the colostomy from the operative site. The incisional wound was entered after yasmin were removed. The fascia above the umbilicus was inta ct and viable. Inferior to the umbilicus, the fascia was liquified. There was necrotic subcutaneous tissues as well as fascia, which were sharply debrided using Metzenbaum scissors. The wound was the n pulse lavaged with 6 liters of saline. Wound bed was then packed with saline-saturated Kerlix. St erile dressing was applied. The patient tolerated the operation without any apparent complication an d was returned to the recovery room in satisfactory condition.
[2018-02-01 05:03] LABS: Anion Gap 12 mmol/L (10-20); BUN (Urea Nitrogen) 12 mg/dL (8.4-25.7); Calc. Creatinine Clearance 215 mL/min (70-130); Carbon Dioxide 31 mmol/L (22-29); Chloride 99 mmol/L (98-107); Estimated GFR-MDRD Greater than 90; Glucose 110 mg/dL (70-105); Magnesium 2.1 mg/dL (1.6-2.6); Phosphorus 3.2 mg/dL (2.3-4.7); Sodium 139 mmol/L (136-145)
[2018-02-01 05:07] LABS: Potassium 2.8 mmol/L (3.5-5.1)
[2018-02-01] MEDS ORDERED: Meropenem 2 GM in Sodium Chloride 0.9% 100 ML IVPB SCH (06:00)
[2018-02-01] MEDS ORDERED: Potassium Chloride 40 MEQ in Sodium Chloride 0.9% 250 ML 250 ML IVPB SCH (06:30)
[2018-02-01] MEDS: Sodium Chloride 0.9% 1,000 ML IV SCH ×2 (06:30→16:13)
[2018-02-01] MEDS: Acetaminophen 500 MG TAB PO SCH ×3 (06:31→17:16)
[2018-02-01 07:47] LABS: Hemoglobin 11.1 g/dL (14.0-18.0); Mean Corpuscular HGB CONC 31.9 g/dL (32.0-36.0); Mean Corpuscular Volume 90.9 fL (78.0-98.0); Mean Platelet Volume 8.5 fL (7.4-10.4); Platelet Count 277 thou/uL (130-400); RBC Distribution Width 12.8 % (11.5-14.5); Red Blood Cell (RBC) Count 3.82 mill/uL (4.70-6.10); White Blood Cell (WBC) Count 17.8 thou/uL (4.8-10.8)
[2018-02-01 08:51] LABS: Band 25 % (5-11); Lymphocytes 10 % (21-51); MDiff Complete? YES; Monocytes 3 % (0-10); Neutrophil 62 % (42-75); Polychromasia SLIGHT = 2-3 cells (100X) (0-2/hpf); RBC Morphology Normal
[2018-02-01] MEDS: Lisinopril 5 MG TAB PO SCH ×2 (09:20→22:35)
[2018-02-01] MEDS: Potassium Chloride 20 MEQ TAB PO SCH ×2 (09:21→17:15)
[2018-02-01] MEDS: Amlodipine 5 MG TAB PO SCH ×2 (09:21→22:34)
[2018-02-01] MEDS: Metoprolol Tartrate 50 MG TAB PO SCH ×2 (09:21→22:35)
--- NOTE | 2018-02-01 10:26 | PRG ---
DATE OF SERVICE: 02/01/2018 SUBJECTIVE: Mr. Park is awake and alert today. He reports no abdominal pain. He tolerates diet well. Colostomy is quite functioning. The wound was redressed this morning by Wound Care Servi ines. I examined the wound dressing change. The wound bed is clean. PHYSICAL EXAMINATION: VITAL SIGNS: Today includes blood pressure 158/81, pulse is 94, respiratory rate 16, temperature is 98.1 degrees Fahrenheit, oxygen saturation 95% on room air. ABDOMEN: Soft, nontender and nondistended. Colostomy is viable and functional. Wound bed as stated is clean. There is still some residual necrotic fascia in the inferior pole of the wound. No signi ficant gross purulence. LABORATORY DATA: Laboratory findings today includes a CBC with 17,800 white blood cells, hemoglobin and hematocrit 11.1 and 34.7 respectively. Platelet count is 277,000. Differential count as follows ; 2% segmented neutrophils, 25% bands, 10 lymphocytes, and 3 monocytes. Metabolic profile: Sodium 1 39, potassium is 2.8, chloride is 99, bicarbonate is 31, BUN 12, creatinine 0.81, glucose is 106, mag nesium is 2.1, phosphorus 3.2. Note that the BUN and creatinine yesterday was 11 and 1.05 respective ly. IMPRESSION: Postoperative wound infection. PLAN: The patient is otherwise, hemodynamically stable. Continue local wound care and antibiotic th erapy.
[2018-02-01] MEDS: Meropenem 2 GM, Admixture Fee 1 EACH in Sodium Chloride 0.9% 100 ML IVPB SCH ×2 (14:49→22:36)
[2018-02-01] MEDS ORDERED: Dextrose 5% in Water 1,000 ML IV PRN (16:25)
[2018-02-01] MEDS ORDERED: Dextrose 50% Abboject 50 ML SYRINGE SLOW IVP PRN (16:25)
[2018-02-01] MEDS: Insulin Regular 300 UNITS/3 ML VIAL SC PRN (17:35)
[2018-02-01] MEDS: Enoxaparin Sodium 40 MG/0.4 ML SYRINGE SC SCH (22:36)
[2018-02-01] MEDS: Sodium Hypochlorite 0.25% Solution 480 ML BOT TOP SCH (22:37)
[2018-02-02] MEDS: Acetaminophen 500 MG TAB PO SCH ×4 (00:22→18:35)
[2018-02-02] MEDS: Sodium Chloride 0.9% 1,000 ML IV SCH (00:27)
[2018-02-02 05:33] LABS: #Eosinphils 0.1 thou/uL (0.0-0.7); #Lymphocytes 1.1 thou/uL (1.20-3.40); #Neutrophils 10.4 thou/uL (1.40-6.50); %Basophils 0.2 % (0.0-1.0); %Eosinophils 1.1 % (0.0-10.0); %Monocytes 7.6 % (0.0-10.0); %Neutrophils 82.2 % (42.0-75.0); Hemoglobin 11.9 g/dL (14.0-18.0); Mean Corpuscular HGB CONC 32.6 g/dL (32.0-36.0); Mean Corpuscular Hemoglobin 29.4 pg (27.0-31.0); Mean Corpuscular Volume 90.1 fL (78.0-98.0); Mean Platelet Volume 8.2 fL (7.4-10.4); Platelet Count 330 thou/uL (130-400); RBC Distribution Width 12.7 % (11.5-14.5); Red Blood Cell (RBC) Count 4.04 mill/uL (4.70-6.10); White Blood Cell (WBC) Count 12.7 thou/uL (4.8-10.8)
[2018-02-02 05:38] LABS: Anion Gap 12 mmol/L (10-20); BUN (Urea Nitrogen) 8 mg/dL (8.4-25.7); Calc. Creatinine Clearance 238 mL/min (70-130); Carbon Dioxide 30 mmol/L (22-29); Chloride 100 mmol/L (98-107); Estimated GFR-MDRD Greater than 90; Glucose 106 mg/dL (70-105); Magnesium 1.9 mg/dL (1.6-2.6); Phosphorus 2.6 mg/dL (2.3-4.7); Sodium 139 mmol/L (136-145)
[2018-02-02 05:44] LABS: Potassium 2.8 mmol/L (3.5-5.1)
[2018-02-02] MEDS: Meropenem 2 GM, Admixture Fee 1 EACH in Sodium Chloride 0.9% 100 ML IVPB SCH ×3 (06:26→22:04)
[2018-02-02] MEDS ORDERED: Magnesium Sulfate 2 GM, Admixture Fee 1 EACH in Sodium Chloride 0.9% 100 ML IVPB SCH (08:30)
[2018-02-02] MEDS ORDERED: Magnesium 2 GM/NS 0.9% 100 ML 2 GM in Premix Bag 1 BAG IVPB SCH (08:30)
[2018-02-02] MEDS: Metoprolol Tartrate 50 MG TAB PO SCH ×2 (09:13→21:59)
[2018-02-02] MEDS: Amlodipine 5 MG TAB PO SCH ×2 (09:13→21:59)
[2018-02-02] MEDS: Potassium Chloride 20 MEQ TAB PO SCH ×2 (09:13→21:58)
[2018-02-02] MEDS: Lisinopril 5 MG TAB PO SCH ×2 (09:13→21:59)
[2018-02-02] MEDS: Sodium Hypochlorite 0.25% Solution 480 ML BOT TOP SCH ×2 (09:17→22:00)
--- NOTE | 2018-02-02 10:11 | PRG ---
DATE OF SERVICE: 02/02/2018 SUBJECTIVE: Mr. Park is a 52-year-old man who is status post Devante's procedure for obstru cting colon cancer. The patient developed a horrific wound infection with the wound contaminated by a break in the colostomy appliance. Today, he is awake and alert. Reports adequate pain control. I debrided necrotic tissues at bedside . The wound bed otherwise looks much yard cleaner. PLAN: 1. We will continue with local wound care at this time. 2. We will ask [employer] to begin discharge planning [facility] for [facility] wound care. Above findings and plan discussed with the patient who indicates understanding of information given. I have answered his questions.
[2018-02-02 17:25] LABS: Potassium 2.9 mmol/L (3.5-5.1)
[2018-02-02] MEDS ORDERED: Potassium Chloride 40 MEQ in Sodium Chloride 0.9% 250 ML 250 ML IVPB SCH (18:15)
[2018-02-02] MEDS: traMADol HCl 50 MG TAB PO PRN (21:59)
[2018-02-02] MEDS: Enoxaparin Sodium 40 MG/0.4 ML SYRINGE SC SCH (21:59)
[2018-02-03] MEDS: Acetaminophen 500 MG TAB PO SCH ×5 (00:26→23:38)
[2018-02-03 05:36] LABS: #Eosinphils 0.1 thou/uL (0.0-0.7); #Lymphocytes 1.1 thou/uL (1.20-3.40); #Monocytes 0.8 thou/uL (0.11-0.59); #Neutrophils 6.9 thou/uL (1.40-6.50); %Basophils 0.4 % (0.0-1.0); %Eosinophils 1.2 % (0.0-10.0); %Lymphocytes 12.6 % (21.0-51.0); %Monocytes 8.9 % (0.0-10.0); %Neutrophils 76.9 % (42.0-75.0); Mean Corpuscular HGB CONC 32.1 g/dL (32.0-36.0); Mean Corpuscular Hemoglobin 29.3 pg (27.0-31.0); Mean Corpuscular Volume 91.3 fL (78.0-98.0); Mean Platelet Volume 7.8 fL (7.4-10.4); Platelet Count 370 thou/uL (130-400); RBC Distribution Width 12.7 % (11.5-14.5); Red Blood Cell (RBC) Count 4.11 mill/uL (4.70-6.10)
[2018-02-03 05:41] LABS: Anion Gap 11 mmol/L (10-20); BUN (Urea Nitrogen) 7 mg/dL (8.4-25.7); Calc. Creatinine Clearance 268 mL/min (70-130); Calcium 8.1 mg/dL (7.8-10.44); Carbon Dioxide 30 mmol/L (22-29); Chloride 103 mmol/L (98-107); Estimated GFR-MDRD Greater than 90; Glucose 122 mg/dL (70-105); Phosphorus 2.5 mg/dL (2.3-4.7); Potassium 3.6 mmol/L (3.5-5.1); Sodium 140 mmol/L (136-145)
[2018-02-03] MEDS: Meropenem 2 GM, Admixture Fee 1 EACH in Sodium Chloride 0.9% 100 ML IVPB SCH ×3 (06:27→22:02)
[2018-02-03] MEDS ORDERED: Magnesium Sulfate 3 GM in Sodium Chloride 0.9% 100 ML IVPB SCH (08:00)
[2018-02-03] MEDS ORDERED: Potassium Phosphate 30 MMOL in Sodium Chloride 0.9% 500 ML IVPB SCH (08:00)
[2018-02-03] MEDS: Lisinopril 5 MG TAB PO SCH ×2 (09:00→21:59)
[2018-02-03] MEDS: Amlodipine 5 MG TAB PO SCH ×2 (09:00→21:59)
[2018-02-03] MEDS: Metoprolol Tartrate 50 MG TAB PO SCH ×2 (09:00→21:59)
[2018-02-03] MEDS: Collagenase 250 UNITS/GM Ointment 30 GM TUBE TOP SCH (11:07)
[2018-02-03] MEDS: Sodium Hypochlorite 0.25% Solution 480 ML BOT TOP SCH ×2 (11:08→21:52)
--- NOTE | 2018-02-03 11:45 | PRG ---
DATE OF SERVICE: 02/03/2018 SUBJECTIVE: This is a 52-year-old male status post Devante's procedure for obstructive colon cancer . He is a readmission for wound infection secondary to wound contamination by a break in the colosto my. He had no acute overnight events. He states his pain has been well controlled. He has been amb ulating regularly. Wound care nursing are doing dressing changes. The patient has not been seen by Wound Care yet this morning, but nursing staff states the wound has a similar appearance to yesterday . OBJECTIVE: VITAL SIGNS: Temperature 98.4, pulse 92, respiration rate 18, O2 saturation 98% on room air, blood p ressure 155/94. GENERAL: Sitting in a chair, out of bed. PULMONARY: Normal work of breathing. Symmetric rise. CARDIOVASCULAR: Regular rate and rhythm. ABDOMEN: Colostomy is in place and ostomy appears viable. There is stool in ostomy bag. Wound dres sing is clean, dry and intact. MUSCULOSKELETAL: Moves all extremities x4. NEUROLOGIC: No focal deficit is noted. LABORATORY DATA: WBC 9.0, hemoglobin 12.0, hematocrit 37.5, platelet count 370. Sodium 140, potassi um 3.6, chloride 103, carbon dioxide 30, BUN 7, creatinine 0.65, glucose 122, phosphorus 2.5, magnesi um 2.0. ASSESSMENT: 1. Status post Devante's procedure with wound infection secondary to contamination. 2. Electrolyte abnormalities to include hypokalemia and hypophosphatemia. 3. Hypertension. 4. Acute pain. PLAN: Continue pain management as ordered. Continue daily wound care as ordered. We will follow up with wound care team once they have seen and evaluated the patient today. Replete abnormal electrol ytes. A.m. labs. Continue to encourage mobility. The patient was discussed with trauma attending.
[2018-02-03] MEDS: Enoxaparin Sodium 40 MG/0.4 ML SYRINGE SC SCH (21:59)
[2018-02-03] MEDS: traMADol HCl 50 MG TAB PO PRN (22:02)
[2018-02-04 05:39] LABS: Anion Gap 11 mmol/L (10-20); BUN (Urea Nitrogen) 7 mg/dL (8.4-25.7); Calc. Creatinine Clearance 256 mL/min (70-130); Calcium 8.2 mg/dL (7.8-10.44); Carbon Dioxide 32 mmol/L (22-29); Chloride 100 mmol/L (98-107); Estimated GFR-MDRD Greater than 90; Glucose 95 mg/dL (70-105); Phosphorus 3.2 mg/dL (2.3-4.7); Potassium 3.5 mmol/L (3.5-5.1); Sodium 139 mmol/L (136-145)
[2018-02-04] MEDS: Meropenem 2 GM, Admixture Fee 1 EACH in Sodium Chloride 0.9% 100 ML IVPB SCH ×3 (06:53→21:21)
[2018-02-04] MEDS: Acetaminophen 500 MG TAB PO SCH ×4 (06:53→23:45)
[2018-02-04] MEDS ORDERED: Magnesium 2 GM/NS 0.9% 100 ML 2 GM in Premix Bag 1 BAG IVPB SCH (08:00)
[2018-02-04] MEDS ORDERED: Magnesium Sulfate 2 GM in Sodium Chloride 0.9% 100 ML IVPB SCH (08:00)
[2018-02-04] MEDS ORDERED: Potassium Phosphate 30 MMOL in Sodium Chloride 0.9% 500 ML IVPB SCH (08:00)
[2018-02-04] MEDS: Amlodipine 5 MG TAB PO SCH ×2 (08:38→21:20)
[2018-02-04] MEDS: Lisinopril 5 MG TAB PO SCH ×2 (08:39→21:21)
[2018-02-04] MEDS: Metoprolol Tartrate 50 MG TAB PO SCH ×2 (08:39→21:21)
[2018-02-04] MEDS: Collagenase 250 UNITS/GM Ointment 30 GM TUBE TOP SCH (10:02)
[2018-02-04] MEDS: Sodium Hypochlorite 0.25% Solution 480 ML BOT TOP SCH ×2 (10:04→21:30)
[2018-02-04] MEDS: Insulin Regular 300 UNITS/3 ML VIAL SC PRN (12:17)
--- NOTE | 2018-02-04 15:15 | PRG ---
DATE OF SERVICE: 02/04/2018 SUBJECTIVE: This is a 52-year-old male status post Devante's procedure for obstructive colon cancer . He is a readmission for wound infection secondary to contamination due to have a break in the colo stomy seal. He had no acute overnight events. The patient states pain is well controlled and he has been ambulating regularly. Wound Care team is at bedside and is performing dressing change. Wound appears improved from when last previously seen. There is an area of induration of the skin inferior to the wound, but there is no purulent drainage or odor noted and no obvious track can be found. OBJECTIVE: VITAL SIGNS: Temperature 98.1, pulse 81, respiration rate 18, O2 sat 95% on room air, blood pressure 134/84. GENERAL: The patient is resting in bed in no acute distress. PULMONARY: Normal work of breathing. Symmetric rise. CARDIOVASCULAR: Regular rate and rhythm. GASTROINTESTINAL: Soft, nontender. Large abdominal wound with areas of granulating tissue. There i s an 18 x 6 cm area of induration inferior to the wound as described above. The colostomy is pink an d viable with a liquid stool in the bag. MUSCULOSKELETAL: Moves all extremities x4. NEUROLOGIC: No focal deficit noted. LABORATORY DATA: Sodium 139, potassium 3.5, chloride 100, carbon dioxide 32, BUN 7, creatinine 0.68, glucose 95, phosphorus 3.2, magnesium 2.0. ASSESSMENT: 1. Status post Devante procedure with wound infection secondary to contamination. 2. Electrolyte abnormalities to include hypokalemia and hypomagnesemia. 3. Hypertension, improved. 4. Acute pain, stable. PLAN: Continue pain management as ordered. Continue daily wound care as ordered. A.m. labs. Watch area of induration closely. The patient is currently afebrile with no clinical evidence or signs of infection. Continue to encourage mobility, incentive spirometry. Plan of care was discussed with t he patient and family at bedside. All questions were answered at the time of this dictation. Ferny turner has been discussed with trauma attending.
[2018-02-04] MEDS: Enoxaparin Sodium 40 MG/0.4 ML SYRINGE SC SCH (21:21)
[2018-02-05 05:15] LABS: #Eosinphils 0.3 thou/uL (0.0-0.7); #Lymphocytes 1.2 thou/uL (1.20-3.40); #Monocytes 0.7 thou/uL (0.11-0.59); #Neutrophils 4.7 thou/uL (1.40-6.50); %Basophils 0.5 % (0.0-1.0); %Eosinophils 3.7 % (0.0-10.0); %Lymphocytes 17.4 % (21.0-51.0); %Monocytes 10.1 % (0.0-10.0); %Neutrophils 68.3 % (42.0-75.0); Hemoglobin 12.6 g/dL (14.0-18.0); Mean Corpuscular HGB CONC 33.2 g/dL (32.0-36.0); Mean Corpuscular Hemoglobin 29.8 pg (27.0-31.0); Mean Corpuscular Volume 89.8 fL (78.0-98.0); Platelet Count 396 thou/uL (130-400); RBC Distribution Width 12.7 % (11.5-14.5); Red Blood Cell (RBC) Count 4.21 mill/uL (4.70-6.10); White Blood Cell (WBC) Count 6.9 thou/uL (4.8-10.8)
[2018-02-05 05:28] LABS: Anion Gap 12 mmol/L (10-20); BUN (Urea Nitrogen) 8 mg/dL (8.4-25.7); CRP (Inflammatory) 5.58 mg/dL (= or < 0.5); Calc. Creatinine Clearance 264 mL/min (70-130); Calcium 8.3 mg/dL (7.8-10.44); Carbon Dioxide 30 mmol/L (22-29); Chloride 100 mmol/L (98-107); Estimated GFR-MDRD Greater than 90; Glucose 101 mg/dL (70-105); Phosphorus 3.1 mg/dL (2.3-4.7); Sodium 138 mmol/L (136-145)
[2018-02-05] MEDS: Meropenem 2 GM, Admixture Fee 1 EACH in Sodium Chloride 0.9% 100 ML IVPB SCH ×3 (05:51→22:42)
[2018-02-05] MEDS: Acetaminophen 500 MG TAB PO SCH ×4 (05:51→23:50)
[2018-02-05] MEDS: Sodium Hypochlorite 0.25% Solution 480 ML BOT TOP SCH ×2 (09:30→22:30)
[2018-02-05] MEDS: Collagenase 250 UNITS/GM Ointment 30 GM TUBE TOP SCH (09:30)
[2018-02-05] MEDS ORDERED: Ibuprofen 600 MG TAB PO PRN (09:53)
[2018-02-05] MEDS: Lisinopril 5 MG TAB PO SCH ×2 (10:26→21:01)
[2018-02-05] MEDS: Metoprolol Tartrate 50 MG TAB PO SCH ×2 (10:26→21:02)
[2018-02-05] MEDS: Amlodipine 5 MG TAB PO SCH ×2 (10:26→21:02)
--- NOTE | 2018-02-05 11:01 | PRG ---
DATE OF SERVICE: 02/05/2018 SUBJECTIVE: Mr. Park is a 52-year-old man who developed a postoperative abdominal wound infe ction. The wound is examined today during dressing changes. The patient has remained hemodynamicall y stable and afebrile in the last 72 hours. Pain is adequately controlled on oral analgesics. OBJECTIVE: VITAL SIGNS: Currently includes blood pressure 135/76, pulse 100, respiratory rate is 14, temperatur e is 98.3 degrees Fahrenheit, oxygen saturation is 93% on room air. HEENT: Reveals normocephalic and atraumatic. HEART: Reveals regular rate and rhythm, no murmurs or gallops auscultated. CHEST: Clear to auscultation bilaterally. Breathing is regular and unlabored. ABDOMEN: Soft and obese. Wound bed is clean with minimal necrotic tissue present. The exposed sutu res were excised. Fascia is almost completely liquified and necrotic fascia has been excised. There is no gross purulence or odor present. Colostomy is viable and quite functional. NEUROLOGIC: Reveals no focal deficits present. LABORATORY DATA: CBC today with 6900 white blood cells, hemoglobin and hematocrit is 12.6 and 37.8 r espectively. Platelet count is 396,000. Metabolic profile: Sodium 138, potassium 4.0, chloride is 100, bicarbonate is 30, BUN is 8, creatini ne 0.66, glucose 101, magnesium is 2.0, phosphorus is 3.1. IMPRESSION: Postoperative wound infection, stable. PLAN: 1. Continue with local wound care. 2. Wound is not ready yet for wound VAC application at this time. 3. We will ask case workers to begin process of placing the patient in a custodial care facili ty post-discharge as patient is unable to take care of this wound by himself at home. The above findings and plan have been discussed with the patient and his adult sister at bedside. Th ey both indicated understanding of information given. I answered their questions.
[2018-02-05] MEDS: Enoxaparin Sodium 40 MG/0.4 ML SYRINGE SC SCH (21:02)
[2018-02-05] MEDS: traMADol HCl 50 MG TAB PO PRN (21:09)
[2018-02-06] MEDS: Meropenem 2 GM, Admixture Fee 1 EACH in Sodium Chloride 0.9% 100 ML IVPB SCH ×3 (05:37→22:04)
[2018-02-06] MEDS: Acetaminophen 500 MG TAB PO SCH ×4 (05:37→23:19)
[2018-02-06] MEDS: Metoprolol Tartrate 50 MG TAB PO SCH ×2 (09:05→22:00)
[2018-02-06] MEDS: Amlodipine 5 MG TAB PO SCH ×2 (09:05→22:00)
[2018-02-06] MEDS: Lisinopril 5 MG TAB PO SCH ×2 (09:05→22:00)
--- NOTE | 2018-02-06 11:05 | PRG ---
DATE OF SERVICE: 02/06/2018 Mr. Park is awake and alert today. He denies any abdominal pain. I evaluated the wound dressing changes. Wound bed is clean and no gross purulence or odor. The patient has remained hemodynamically stable with stable vital signs. He has been afebrile throug h this admission. PLAN: We will continue with local wound care. Case workers working on having the patient placed in a [facility] facility post-discharge for effective outpatient local wound care. Both findings and plan discussed with the patient and his adult sister at bedside. They both indicat ed understanding of information given.
[2018-02-06] MEDS: Collagenase 250 UNITS/GM Ointment 30 GM TUBE TOP SCH (11:39)
[2018-02-06] MEDS: Sodium Hypochlorite 0.25% Solution 480 ML BOT TOP SCH ×2 (11:39→22:00)
[2018-02-06] MEDS: Insulin Regular 300 UNITS/3 ML VIAL SC PRN (17:24)
[2018-02-06] MEDS: Enoxaparin Sodium 40 MG/0.4 ML SYRINGE SC SCH (22:00)
[2018-02-06] MEDS: traMADol HCl 50 MG TAB PO PRN (22:00)
[2018-02-07] MEDS: Acetaminophen 500 MG TAB PO SCH ×4 (06:59→23:51)
[2018-02-07] MEDS: Meropenem 2 GM, Admixture Fee 1 EACH in Sodium Chloride 0.9% 100 ML IVPB SCH ×3 (06:59→21:58)
[2018-02-07] MEDS: Metoprolol Tartrate 50 MG TAB PO SCH ×2 (09:03→21:57)
[2018-02-07] MEDS: Lisinopril 5 MG TAB PO SCH ×2 (09:03→21:58)
[2018-02-07] MEDS: Amlodipine 5 MG TAB PO SCH ×2 (09:04→21:57)
[2018-02-07] MEDS: traMADol HCl 50 MG TAB PO PRN (10:27)
[2018-02-07] MEDS: Collagenase 250 UNITS/GM Ointment 30 GM TUBE TOP SCH (11:05)
[2018-02-07] MEDS: Sodium Hypochlorite 0.25% Solution 480 ML BOT TOP SCH ×2 (11:05→21:59)
--- NOTE | 2018-02-07 12:23 | PRG ---
DATE OF SERVICE: 02/07/2018 SUBJECTIVE: Mr. Park is a 52-year-old morbidly obese man who is status post a left colectomy with end colostomy for obstructive colon cancer. The patient developed postoperative wound infection. Currently, wound has been managed with b.i.d. dressing changes. On examination today, the wound bed is clean. We were able to place a wound VAC today. Otherwise, the patient has no complaints. PHYSICAL EXAMINATION: VITAL SIGNS: Today includes blood pressure 156/97, pulse 81, respiratory rate is 18, temperature is 97.9 degrees Fahrenheit, oxygen saturation is 99% on room air. HEART: Reveals regular rate and rhythm. No murmurs or gallops auscultated. LUNGS: Clear to auscultation bilaterally. Breathing is regular and unlabored. ABDOMEN: Soft and obese. Wound bed is clean. No residual necrosis or gross purulence. Wound VAC is applied without incident. The patient is hemodynamically stable. Social work is working on placing the patient in group home facility for outpatient care and wou nd management. Above findings and plan discussed with the patient who indicates understanding of the information giv en. I have answered their questions. If unable to place the patient in an extended care facility, we will give consideration to discharge the patient home with outpatient home health nursing care.
[2018-02-07] MEDS: Enoxaparin Sodium 40 MG/0.4 ML SYRINGE SC SCH (21:58)
[2018-02-08] MEDS: Acetaminophen 500 MG TAB PO SCH ×3 (05:45→18:19)
[2018-02-08] MEDS: Meropenem 2 GM, Admixture Fee 1 EACH in Sodium Chloride 0.9% 100 ML IVPB SCH ×3 (05:46→21:00)
[2018-02-08] MEDS: Lisinopril 5 MG TAB PO SCH ×2 (08:59→20:59)
[2018-02-08] MEDS: Amlodipine 5 MG TAB PO SCH ×2 (08:59→21:00)
[2018-02-08] MEDS: Metoprolol Tartrate 50 MG TAB PO SCH ×2 (09:00→20:59)
[2018-02-08] MEDS: Sodium Hypochlorite 0.25% Solution 480 ML BOT TOP SCH ×2 (11:44→21:01)
[2018-02-08] MEDS: Collagenase 250 UNITS/GM Ointment 30 GM TUBE TOP SCH (11:44)
--- NOTE | 2018-02-08 13:29 | PRG ---
DATE OF SERVICE: 02/08/2018 SUBJECTIVE: Mr. Park is awake and alert today. Reports adequate pain control. He is tolera ting general diet, having normal bowel and urinary function. OBJECTIVE: VITAL SIGNS: Today includes blood pressure 144/90, pulse is 100, respiratory rate is 14, temperature is 97.8 degrees Fahrenheit, oxygen saturation 100% on room air. HEENT: Reveals normocephalic and atraumatic. HEART: Reveals regular rate and rhythm. LUNGS: Clear to auscultation bilaterally. ABDOMEN: Soft and obese. Wound VAC is in place. There is a scant serous drainage in the canister. Ostomy is viable and functional with stool and gas. IMPRESSION: Stable abdominal wound infection. PLAN: 1. Continue with local wound care. 2. The plan is in the works to get the patient transferred to a long-term facility where he wi ll continue with wound care applications and follow up as needed. The above findings and plan have been discussed with the patient who indicates understanding of infor mation given. I have answered his questions.
[2018-02-08] MEDS: Enoxaparin Sodium 40 MG/0.4 ML SYRINGE SC SCH (21:00)
[2018-02-09] MEDS: Acetaminophen 500 MG TAB PO SCH ×4 (01:11→18:09)
[2018-02-09] MEDS: Meropenem 2 GM, Admixture Fee 1 EACH in Sodium Chloride 0.9% 100 ML IVPB SCH ×3 (05:21→21:23)
[2018-02-09] MEDS: traMADol HCl 50 MG TAB PO PRN (08:58)
[2018-02-09] MEDS: Lisinopril 5 MG TAB PO SCH ×2 (08:59→20:33)
[2018-02-09] MEDS: Metoprolol Tartrate 50 MG TAB PO SCH ×2 (09:00→20:34)
[2018-02-09] MEDS: Amlodipine 5 MG TAB PO SCH ×2 (09:00→20:34)
[2018-02-09] MEDS: Collagenase 250 UNITS/GM Ointment 30 GM TUBE TOP SCH (10:21)
[2018-02-09] MEDS: Sodium Hypochlorite 0.25% Solution 480 ML BOT TOP SCH ×2 (10:21→22:31)
[2018-02-09] MEDS: Enoxaparin Sodium 40 MG/0.4 ML SYRINGE SC SCH (20:34)
--- NOTE | 2018-02-09 22:44 | PRG ---
DATE OF SERVICE: 02/09/2018 SUBJECTIVE: Mr. Park is awake and alert today. He denies any abdominal pain. He is tolerat ing general diet, having normal bowel and renal function. OBJECTIVE: VITAL SIGNS: Includes blood pressure 120/68, pulse 93, respiratory rate is 16, temperature is 98.4 d egrees Fahrenheit and oxygen saturation 97% on room air. HEART: Reveals regular rate and rhythm. LUNGS: Clear to auscultation bilaterally. ABDOMEN: Soft, nontender and nondistended. I examined the wound today and had dressing changes. Wo und bed is clean, dry. There are lateral edges where the fascia was nonviable. This was debrided sh arply using Metzenbaum scissors. A wound VAC was reapplied. Colostomy itself is viable and quite fu nctional with stool and gas. IMPRESSION: Postoperative abdominal wound infection, resolving. PLAN: Continue with local wound care using wound VAC. The patient is due to be transferred to skill ed nursing facility in 3 days following the next wound VAC change.
[2018-02-10] MEDS: Acetaminophen 500 MG TAB PO SCH ×4 (00:17→18:30)
[2018-02-10] MEDS: Collagenase 250 UNITS/GM Ointment 30 GM TUBE TOP SCH (08:30)
[2018-02-10] MEDS: Sodium Hypochlorite 0.25% Solution 480 ML BOT TOP SCH ×2 (08:31→21:21)
[2018-02-10] MEDS: Amlodipine 5 MG TAB PO SCH ×2 (08:32→21:18)
[2018-02-10] MEDS: Metoprolol Tartrate 50 MG TAB PO SCH ×2 (08:32→21:17)
[2018-02-10] MEDS: Lisinopril 5 MG TAB PO SCH ×2 (08:32→21:17)
[2018-02-10] MEDS: Enoxaparin Sodium 40 MG/0.4 ML SYRINGE SC SCH (21:18)
[2018-02-11] MEDS: Acetaminophen 500 MG TAB PO SCH ×4 (00:05→18:14)
--- NOTE | 2018-02-11 01:30 | PRG ---
DATE OF SERVICE: 02/11/2018 SUBJECTIVE: Patient is currently on the surgical floor. He remains with a functioning abdominal wou nd VAC. His pain is well controlled and he is tolerating a diet. Patient's colostomy is functioning quite well. OBJECTIVE: VITAL SIGNS: Temperature is 98.4, heart rate 92, blood pressure 143/82, respirations 18, oxygen satu ration 98% on room air. GENERAL: Patient is resting comfortably, sitting in the side of the bed. He is awake, alert, and or iented x3. HEENT: Unremarkable. LUNGS: Clear to auscultation with good inspiratory and expiratory effort. ABDOMEN: Has a functioning wound VAC on his midline incision. His colostomy is functioning well. T here is stool and gas in it. Patient has minimal tenderness to his abdomen. EXTREMITIES: Neurovascularly intact x4. LABORATORY DATA: There are no labs or radiographs to review this morning. ASSESSMENT AND PLAN: Postoperative abdominal wound infection, resolving. Plan will be to continue t he wound VAC and after dressing change on Monday, we will plan to discharge the patient to a fdc facility. The evaluation and examination were done with Dr. Cruz during rounds this morning .
[2018-02-11] MEDS: Sodium Hypochlorite 0.25% Solution 480 ML BOT TOP SCH ×2 (09:05→20:42)
[2018-02-11] MEDS: Collagenase 250 UNITS/GM Ointment 30 GM TUBE TOP SCH (09:05)
[2018-02-11] MEDS: Amlodipine 5 MG TAB PO SCH ×2 (09:16→20:41)
[2018-02-11] MEDS: Metoprolol Tartrate 50 MG TAB PO SCH ×2 (09:16→20:42)
[2018-02-11] MEDS: Lisinopril 5 MG TAB PO SCH ×2 (09:17→20:42)
[2018-02-11] MEDS: Enoxaparin Sodium 40 MG/0.4 ML SYRINGE SC SCH (20:41)
[2018-02-12] MEDS: Acetaminophen 500 MG TAB PO SCH ×5 (00:13→23:20)
--- NOTE | 2018-02-12 02:07 | PRG ---
DATE OF SERVICE: 02/11/2018 SUBJECTIVE: The patient remains on the surgical floor. He is tolerating a diet. His pain is contro lled. His wound VAC is functioning and the patient is ambulating without difficulty. PHYSICAL EXAMINATION: VITAL SIGNS: Temperature is 98, heart rate 92, blood pressure 138/83, respirations 16, oxygen satura tion 98% on room air. GENERAL: The patient is awake, alert, and oriented x3. He is up out of bed, ambulating without diff iculty. ABDOMEN: His midline incision with the wound VAC is functioning quite well. The patient has minimal tenderness around it and no surrounding erythema. His colostomy appears to be functioning with stoo l and gas in it. LABORATORY DATA: There are no labs or radiographs to review this morning. ASSESSMENT AND PLAN: Postoperative abdominal wound infection, resolving. Plan will be to continue t he wound VAC tomorrow. We will change the wound VAC with the wound care team and if everything is pr ogressing forward, we will discharge the patient to care home facility. Evaluation was discuss ed with Dr. Cruz this morning.
[2018-02-12] MEDS: Lisinopril 5 MG TAB PO SCH ×2 (08:32→21:00)
[2018-02-12] MEDS: Amlodipine 5 MG TAB PO SCH ×2 (08:32→21:00)
[2018-02-12] MEDS: Metoprolol Tartrate 50 MG TAB PO SCH ×2 (08:32→21:00)
[2018-02-12] MEDS: Collagenase 250 UNITS/GM Ointment 30 GM TUBE TOP SCH (08:36)
[2018-02-12] MEDS: Sodium Hypochlorite 0.25% Solution 480 ML BOT TOP SCH ×2 (08:37→21:01)
[2018-02-12] MEDS: Enoxaparin Sodium 40 MG/0.4 ML SYRINGE SC SCH (20:59)
--- NOTE | 2018-02-13 03:01 | PRG ---
DATE OF SERVICE: 02/12/2018 SUBJECTIVE: The patient is currently on the surgical floor. He is status post postoperative abdomin al wound infection, which he currently has being treated with a wound VAC. The patient is doing well . This morning, his wound VAC was changed, and his wound appears to be progressing as expected. PHYSICAL EXAMINATION: VITAL SIGNS: Temperature is 97.5, heart rate 92, blood pressure 121/75, respirations 18, oxygen satu ration 100% on room air. GENERAL: The patient is resting comfortably in bed. He was able to tolerate his wound VAC change wi thout difficulty. His ostomy appears to be functioning. ASSESSMENT AND PLAN: Status post postoperative abdominal wound infection. Plan will be to continue treating the patient with a wound VAC. He will be transferred to a fdc facility tomorrow , and we will follow him up in 2 weeks, sooner as needed. The evaluation and wound VAC change were d one with Dr. Cruz this morning in conjunction with the Wound Care team.
[2018-02-13] MEDS: Acetaminophen 500 MG TAB PO SCH ×2 (05:39→11:39)
[2018-02-13] MEDS: Metoprolol Tartrate 50 MG TAB PO SCH (08:25)
[2018-02-13] MEDS: Amlodipine 5 MG TAB PO SCH (08:25)
[2018-02-13] MEDS: Lisinopril 5 MG TAB PO SCH (08:25)
[2018-02-13] MEDS: Sodium Hypochlorite 0.25% Solution 480 ML BOT TOP SCH (08:26)
[2018-02-13] MEDS: Collagenase 250 UNITS/GM Ointment 30 GM TUBE TOP SCH (08:26)
[2018-02-13 11:18] VITALS: BP 126/83; TEMP 98.9
== END 2018-02-13 13:06 | DRG 857 ==
LOC: ERS 12:07 → SURG A 22:20
PROVIDERS: ADMIT Surgery; ATTEND Surgery
PROC: 0JB80ZZ Excision of Abdomen Subcutaneous Tissue and Fascia, Open Approach (ICD-10-PCS; principal; 2018-01-31)
DX: T81.4XXA Infection following a procedure, initial encounter (principal); C18.9 Malignant neoplasm of colon, unspecified; Z68.41 Body mass index [BMI] 40.0-44.9, adult; E11.9 Type 2 diabetes mellitus without complications; Z90.49 Acquired absence of other specified parts of digestive tract; Z93.3 Colostomy status; I10 Essential (primary) hypertension; E66.9 Obesity, unspecified; E87.6 Hypokalemia; E83.39 Other disorders of phosphorus metabolism; Y83.3 Surgical operation with formation of external stoma as the cause of abnormal reaction of the patient, or of later complication, without mention of misadventure at the time of the procedure
CPT/HCPCS: 36415; 36416; 74177; 80048; 80053; 81003; 81015; 83605; 83735; 84100; 85025; 86140; 94640; 96365; 96366; 96375; G8978-GP-CI; G8979-GP-CI; G8980-GP-CI; J1650; J1815; J1885; J2001; J2185; J2250; J2270; J2704; J3010; J3475; J3480; J7050; J7620

== ENCOUNTER 2018-03-01 13:54 | Outpatient (CLI) | payer OTHER ==
[~2018-03-01 13:54] MED LIST changes: -ISOVUE-370 76%-LOCM 1 ML ONE; +Sodium Chloride 0.9% 15 ML NEB ONE
--- NOTE | 2018-03-01 15:22 | HP ---
DATE OF ADMISSION: 03/01/2018 HISTORY OF PRESENT ILLNESS: Mr. Jignesh Park is a very pleasant 52-year-old gentleman who prese nts to the Wound Center for evaluation of a midline abdominal wound subsequent to incision and draina ge of an infected abdominal wound on 01/31/[address] Cruz. Previously on 01/23/2018, the patient underwent exploratory laparotomy with partial left colectomy with end colostomy on 01/23/[address] Cruz. Negative pressure therapy was initiated subsequent to surgery on 01/31/2018. Currently, the patient is receiving dressing changes of the wound VAC at [facility]. PAST MEDICAL HISTORY: 1. Diabetes mellitus. 2. Hypertension. 3. Mucinous adenocarcinoma of the colon. PAST SURGICAL HISTORY: 1. Exploratory laparotomy with partial left colectomy with end colostomy. 2. Incision and drainage of abdominal wound. MEDICATIONS: 1. Tylenol. 2. Norvasc. 3. Arginaid. 4. Clonidine. 5. Ibuprofen. 6. Lisinopril. 7. Metoprolol. 8. Tramadol. 9. Vitamin C. 10. Zinc. ALLERGIES: No known diagnosed allergies. SOCIAL HISTORY: Negative for tobacco or ETOH use. FAMILY HISTORY: Significant for coronary artery disease. The patient states that he has multiple re latives on the maternal and paternal sides of his family who were diagnosed with coronary artery dise ase. PHYSICAL EXAMINATION: VITAL SIGNS: Temperature 98.3, pulse 96, respirations 24, blood pressure 141/73. Accu-Chek 82. GENERAL: A 52-year-old gentleman, lying on table in examination room in no acute distress. HEENT: Normocephalic, atraumatic. NECK: No nuchal rigidity. CHEST: Clear to auscultation. CARDIAC: Regular rate and rhythm. ABDOMEN: Soft. A midline abdominal wound is present, which measures approximately 17.0 x 5.5 cm. G ranulation tissue is present within the wound margins. No purulent drainage is associated with the w ound. No erythema of the skin surrounding the wound is present. No maceration of the skin of the pe riwound is noted. EXTREMITIES: No clubbing or cyanosis. ASSESSMENT AND PLAN: 1. Midline abdominal wound subsequent to incision and drainage of infected abdominal wound on [address] Cruz. Previously, the patient had undergone exploratory laparotomy with partial left co lectomy and end colostomy on 01/23/[address] Cruz. Negative pressure therapy will be continu ed with dressing changes of the wound VAC 3 times per week at [facility]. No antibiot ics will be prescribed today based upon the appearance of the wound. The patient will be seen by Dr. Cruz in 2 weeks. I will see Mr. Park again in 4 weeks. 2. Diabetes mellitus. The patient's Accu-Chek in clinic today is 82. The patient has been told constance t for optimal wound healing, his blood glucoses should remain below 150. 3. Hypertension. 4. Mucinous adenocarcinoma of the colon.
== END 2018-03-01 13:55 | disposition home or self-care (01) ==
LOC: WCC 13:54
PROVIDERS: ATTEND Family Medicine
DX: T81.89XD Other complications of procedures, not elsewhere classified, subsequent encounter (principal); E11.9 Type 2 diabetes mellitus without complications; I10 Essential (primary) hypertension; C18.9 Malignant neoplasm of colon, unspecified
CPT/HCPCS: 97602; 99204; A4218; G0463

== ENCOUNTER 2018-04-02 11:27 | Day surgery (SDC) | payer OTHER, SELFPAY ==
[2018-04-02] MEDS ORDERED: SODIUM CHLORIDE 0.9% IVPB SCH ×2 (13:00→13:15)
[2018-04-02] MEDS ORDERED: WATER IVPB SCH (13:00)
[2018-04-02] MEDS ORDERED: DEXTROSE 5% IVPB SCH (13:00)
[2018-04-02] MEDS ORDERED: LEUCOVORIN CALCIUM IVPB SCH (13:00)
[2018-04-02] MEDS ORDERED: FLUOROURACIL IVPB SCH ×2 (13:00→13:15)
[2018-04-02 13:28] VITALS: BP 136/75; TEMP 98.4
== END 2018-04-02 16:54 | disposition home or self-care (01) ==
LOC: ONC/OP 11:27
PROVIDERS: ATTEND Internal Medicine Medical Oncology
DX: Z51.11 Encounter for antineoplastic chemotherapy (principal); C18.9 Malignant neoplasm of colon, unspecified; E11.9 Type 2 diabetes mellitus without complications; I10 Essential (primary) hypertension; Z79.899 Other long term (current) drug therapy
CPT/HCPCS: 96413; 96417; J0640; J7050; J7070; J9190

== ENCOUNTER 2018-04-03 12:44 | Day surgery (SDC) | payer OTHER ==
[2018-04-03] MEDS ORDERED: LEUCOVORIN CALCIUM IVPB SCH (13:00)
[2018-04-03] MEDS ORDERED: FLUOROURACIL IVPB SCH (13:00)
[2018-04-03] MEDS ORDERED: WATER IVPB SCH ×2 (13:00)
[2018-04-03] MEDS ORDERED: DEXTROSE 5% IVPB SCH ×2 (13:00)
[2018-04-03 14:55] VITALS: BP 128/86; TEMP 97.7
== END 2018-04-03 15:15 | disposition home or self-care (01) ==
LOC: ONC/OP 12:44
PROVIDERS: ATTEND Internal Medicine Medical Oncology
DX: Z51.11 Encounter for antineoplastic chemotherapy (principal); C18.9 Malignant neoplasm of colon, unspecified
CPT/HCPCS: 96368; 96413; J0640; J7070; J9190

== ENCOUNTER 2018-04-04 12:43 | Day surgery (SDC) | payer OTHER, SELFPAY ==
[2018-04-04] MEDS: WATER IVPB SCH ×2 (13:30→14:19)
[2018-04-04] MEDS: DEXTROSE 5% IVPB SCH ×2 (13:30→14:19)
[2018-04-04] MEDS: LEUCOVORIN CALCIUM IVPB SCH (13:30)
[2018-04-04] MEDS: FLUOROURACIL IVPB SCH (14:19)
[2018-04-04] MEDS: Sodium Chloride 0.9% 20 ML ONE (14:19)
== END 2018-04-04 16:01 | disposition home or self-care (01) ==
LOC: ONC/OP 12:43
PROVIDERS: ATTEND Internal Medicine Medical Oncology
DX: Z51.11 Encounter for antineoplastic chemotherapy (principal); C18.9 Malignant neoplasm of colon, unspecified
CPT/HCPCS: 96367; 96413; A4216; J0640; J7070; J9190

== ENCOUNTER 2018-04-05 12:41 | Day surgery (SDC) | payer OTHER, SELFPAY ==
[2018-04-05] MEDS ORDERED: Sodium Chloride 0.9% 30 ML ONE (12:58)
[2018-04-05 13:05] VITALS: BP 171/80; TEMP 97.8
[2018-04-05] MEDS ORDERED: LEUCOVORIN CALCIUM IVPB SCH (13:15)
[2018-04-05] MEDS ORDERED: WATER IVPB SCH ×2 (13:15)
[2018-04-05] MEDS ORDERED: DEXTROSE 5% IVPB SCH ×2 (13:15)
[2018-04-05] MEDS ORDERED: FLUOROURACIL IVPB SCH (13:15)
== END 2018-04-05 16:13 | disposition home or self-care (01) ==
LOC: ONC/OP 12:41
PROVIDERS: ATTEND Internal Medicine Medical Oncology
DX: Z51.11 Encounter for antineoplastic chemotherapy (principal); C18.9 Malignant neoplasm of colon, unspecified
CPT/HCPCS: 96367; 96413; A4216; J0640; J7070; J9190

== ENCOUNTER 2018-04-06 12:44 | Day surgery (SDC) | payer OTHER, SELFPAY ==
[2018-04-06 12:58] VITALS: BP 157/87; TEMP 98.1
[2018-04-06] MEDS ORDERED: LEUCOVORIN CALCIUM IVPB SCH (13:00)
[2018-04-06] MEDS ORDERED: DEXTROSE 5% IVPB SCH ×2 (13:00)
[2018-04-06] MEDS ORDERED: FLUOROURACIL IVPB SCH ×2 (13:00)
[2018-04-06] MEDS ORDERED: WATER IVPB SCH ×2 (13:00)
[2018-04-06] MEDS ORDERED: SODIUM CHLORIDE 0.9% IVPB SCH (13:00)
== END 2018-04-06 16:17 | disposition home or self-care (01) ==
LOC: ONC/OP 12:44
PROVIDERS: ATTEND Internal Medicine Medical Oncology
DX: Z51.11 Encounter for antineoplastic chemotherapy (principal); C18.9 Malignant neoplasm of colon, unspecified
CPT/HCPCS: 96367; 96413; J0640; J7050; J7070; J9190

== ENCOUNTER 2018-04-12 12:58 | Outpatient (CLI) | payer OTHER ==
[2018-04-12] MEDS ORDERED: Sodium Chloride 0.9% 15 ML NEB ONE (20:05)
== END 2018-04-12 12:59 | disposition home or self-care (01) ==
LOC: WCC 12:58
PROVIDERS: ATTEND Family Medicine
DX: T81.89XD Other complications of procedures, not elsewhere classified, subsequent encounter (principal)
CPT/HCPCS: 97602; A4218

== ENCOUNTER 2018-04-25 13:09 | Outpatient (CLI) | payer OTHER ==
--- NOTE | 2018-04-25 13:50 | PRG ---
DATE OF SERVICE: 04/25/2018 HISTORY: Mr. Jignesh Park is a very pleasant 53-year-old gentleman who presents to the Wound Ce nter for evaluation of a midline abdominal wound subsequent to incision and drainage of an infected a bdominal wound on 01/31/[address] Cruz. Previously on 01/23/2018, the patient underwent explorato ry laparotomy with partial left colectomy with end colostomy on 01/23/[address] Cruz. Negati ve pressure therapy was initiated subsequent to surgery on 01/31/2018. The patient subsequently rece ived dressing changes of the wound VAC at [facility]. After discharge from [facility], the patient began performing wet to dry dressing changes for his midline abdominal w ound as per Dr. Cruz. PHYSICAL EXAMINATION: VITAL SIGNS: Temperature 97.5, pulse 74, respirations 18, blood pressure 161/85. Accu-Chek 148. ABDOMEN: Soft. A midline abdominal wound is present which measures approximately 10.5 x 3.0 cm. Gr anulation tissue is present within the wound margins. No purulent drainage is associated with the wo und. No erythema of the skin surrounding the wound is present. No maceration of the skin of the per iwound is noted. ASSESSMENT AND PLAN: 1. Midline abdominal wound subsequent to incision and drainage of infected abdominal wound on [address] Cruz. Previously, the patient had undergone exploratory laparotomy with partial left co lectomy and end colostomy on 01/23/[address] Cruz. The patient has completed a course of neg ative pressure therapy and is now performing wet to dry dressing changes as per Dr. Cruz. The patie nt is to return to the Wound Center for a dressing change, and to be seen by Dr. Cruz in 2 weeks. I will see Mr. Park again in 4 weeks. 2. Diabetes mellitus. The patient's Accu-Chek in clinic today is 148. The patient has been reminde d that for optimal wound healing, his blood glucoses should remain below 150. 3. Hypertension. 4. Mucinous adenocarcinoma of the colon.
== END 2018-04-25 13:10 | disposition home or self-care (01) ==
LOC: WCC 13:09
PROVIDERS: ATTEND Family Medicine
DX: T81.89XD Other complications of procedures, not elsewhere classified, subsequent encounter (principal); E11.9 Type 2 diabetes mellitus without complications; I10 Essential (primary) hypertension; C61 Malignant neoplasm of prostate
CPT/HCPCS: A4218

== ENCOUNTER 2018-04-30 13:01 | Day surgery (SDC) | payer OTHER, SELFPAY ==
[2018-04-30 13:35] VITALS: BP 136/83; TEMP 98.2
[2018-04-30] MEDS ORDERED: WATER IVPB SCH (14:00)
[2018-04-30] MEDS ORDERED: FLUOROURACIL IVPB SCH ×2 (14:00→14:30)
[2018-04-30] MEDS ORDERED: SODIUM CHLORIDE 0.9% IVPB SCH ×2 (14:00→14:30)
[2018-04-30] MEDS ORDERED: LEUCOVORIN CALCIUM IVPB SCH (14:00)
[2018-04-30] MEDS ORDERED: DEXTROSE 5% IVPB SCH (14:00)
[2018-04-30] MEDS ORDERED: Sodium Chloride 0.9% 20 ML ONE (15:02)
== END 2018-04-30 17:25 | disposition home or self-care (01) ==
LOC: ONC/OP 13:01
PROVIDERS: ATTEND Internal Medicine Medical Oncology
DX: Z51.11 Encounter for antineoplastic chemotherapy (principal); C18.9 Malignant neoplasm of colon, unspecified; Z79.899 Other long term (current) drug therapy; Z79.2 Long term (current) use of antibiotics
CPT/HCPCS: 96366; 96413; A4216; J0640; J7050; J7070; J9190

== ENCOUNTER 2018-05-01 12:47 | Day surgery (SDC) | payer OTHER ==
[2018-05-01] MEDS ORDERED: FLUOROURACIL IVPB SCH ×2 (13:00→13:15)
[2018-05-01] MEDS ORDERED: LEUCOVORIN CALCIUM IVPB SCH (13:00)
[2018-05-01] MEDS ORDERED: WATER IVPB SCH (13:00)
[2018-05-01] MEDS ORDERED: DEXTROSE 5% IVPB SCH (13:00)
[2018-05-01] MEDS ORDERED: SODIUM CHLORIDE 0.9% IVPB SCH ×2 (13:00→13:15)
[2018-05-01 14:35] VITALS: BP 144/78; TEMP 98.9
[2018-05-01] MEDS ORDERED: Sodium Chloride 0.9% 20 ML ONE (16:00)
== END 2018-05-01 16:24 | disposition home or self-care (01) ==
LOC: ONC/OP 12:47
PROVIDERS: ATTEND Internal Medicine Medical Oncology
DX: Z51.11 Encounter for antineoplastic chemotherapy (principal); C18.9 Malignant neoplasm of colon, unspecified
CPT/HCPCS: 96367; 96413; A4216; J0640; J7050; J7070; J9190

== ENCOUNTER 2018-05-02 13:20 | Day surgery (SDC) | payer OTHER, SELFPAY ==
[2018-05-02] MEDS ORDERED: LEUCOVORIN CALCIUM IVPB SCH (13:30)
[2018-05-02] MEDS ORDERED: DEXTROSE 5% IVPB SCH ×3 (13:30→13:45)
[2018-05-02] MEDS ORDERED: WATER IVPB SCH ×3 (13:30→13:45)
[2018-05-02] MEDS ORDERED: FLUOROURACIL IVPB SCH ×3 (13:45)
[2018-05-02] MEDS ORDERED: SODIUM CHLORIDE 0.9% IVPB SCH (13:45)
[2018-05-02] MEDS ORDERED: Sodium Chloride 0.9% 20 ML ONE (13:58)
[2018-05-02 14:00] VITALS: BP 145/74; TEMP 98.7
== END 2018-05-02 15:17 | disposition home or self-care (01) ==
LOC: ONC/OP 13:20
PROVIDERS: ATTEND Internal Medicine Medical Oncology
DX: Z51.11 Encounter for antineoplastic chemotherapy (principal); C18.9 Malignant neoplasm of colon, unspecified
CPT/HCPCS: 96367; 96413; A4216; J0640; J7050; J7070; J9190

== ENCOUNTER 2018-05-03 12:45 | Day surgery (SDC) | payer OTHER ==
[2018-05-03] MEDS ORDERED: Sodium Chloride 0.9% 20 ML ONE (12:49)
[2018-05-03] MEDS ORDERED: FLUOROURACIL IVPB SCH (13:00)
[2018-05-03] MEDS ORDERED: DEXTROSE 5% IVPB SCH ×2 (13:00)
[2018-05-03] MEDS ORDERED: WATER IVPB SCH ×2 (13:00)
[2018-05-03] MEDS ORDERED: LEUCOVORIN CALCIUM IVPB SCH (13:00)
[2018-05-03 19:38] VITALS: BP 123/74; TEMP 98
== END 2018-05-03 19:41 | disposition home or self-care (01) ==
LOC: ONC/OP 12:45
PROVIDERS: ATTEND Internal Medicine Medical Oncology
DX: Z51.11 Encounter for antineoplastic chemotherapy (principal); C18.9 Malignant neoplasm of colon, unspecified
CPT/HCPCS: 96367; 96413; J0640; J7070; J9190

== ENCOUNTER 2018-05-04 12:46 | Day surgery (SDC) | payer OTHER ==
[2018-05-04] MEDS ORDERED: Sodium Chloride 0.9% 20 ML ONE (12:56)
[2018-05-04] MEDS ORDERED: WATER IVPB SCH (13:15)
[2018-05-04] MEDS ORDERED: DEXTROSE 5% IVPB SCH (13:15)
[2018-05-04] MEDS ORDERED: LEUCOVORIN CALCIUM IVPB SCH (13:15)
[2018-05-04] MEDS ORDERED: SODIUM CHLORIDE 0.9% IVPB SCH (13:15)
[2018-05-04] MEDS ORDERED: FLUOROURACIL IVPB SCH (13:15)
[2018-05-04 14:48] VITALS: BP 144/74; TEMP 97.9
== END 2018-05-04 14:49 | disposition home or self-care (01) ==
LOC: ONC/OP 12:46
PROVIDERS: ATTEND Internal Medicine Medical Oncology
DX: Z51.11 Encounter for antineoplastic chemotherapy (principal); C18.9 Malignant neoplasm of colon, unspecified
CPT/HCPCS: 96367; 96413; J0640; J1642; J7050; J7070; J9190

== ENCOUNTER 2018-05-24 15:02 | Outpatient (CLI) | payer OTHER, SELFPAY ==
--- NOTE | 2018-05-24 17:26 | PRG ---
DATE OF SERVICE: 05/24/2018 HISTORY: Mr. Jignesh Park is a very pleasant 53-year-old gentleman who presents to the Wound Ce nter for evaluation of a midline abdominal wound subsequent to incision and drainage of an infected a bdominal wound on 01/31/[address] Cruz. Previously on 01/23/2018, the patient underwent explorato ry laparotomy with partial left colectomy with end colostomy also by Dr. Cruz. Negative pressure th erapy was initiated subsequent to surgery on 01/31/2018. The patient subsequently received dressing changes of the wound VAC at [facility]. After discharge from [facility], the patient began performing wet to dry dressing changes for his midline abdominal wound as per Dr Kayli Cruz. OBJECTIVE: VITAL SIGNS: Temperature 98.4, pulse 76, respirations 16, blood pressure 149/82. Accu-Chek 84. ABDOMEN: Soft. A midline abdominal wound is present which measures approximately 12.0 x 3.0 cm. Gr anulation tissue is present within the wound margins. No purulent drainage is associated with the wo und. No erythema of the skin surrounding the wound is present. No maceration of the skin of the per iwound is noted. ASSESSMENT AND PLAN: 1. Midline abdominal wound subsequent to incision and drainage of infected abdominal wound on [address] Cruz. Previously, the patient had undergone exploratory laparotomy with partial left co lectomy and end colostomy on 01/23/[address] Cruz. The patient has completed a course of neg ative pressure therapy and is now performing wet to dry dressing changes as per Dr. Cruz. The patie nt is to return to the Wound Center in 2 weeks for a dressing change and to be seen by Dr. Cruz. I will see Mr. Park again in four weeks. 2. Diabetes mellitus. The patient's Accu-Chek in clinic today is 84. The patient has been reminded that for optimal wound healing, his blood glucoses should remain below 150. 3. Hypertension. 4. Mucinous adenocarcinoma of the colon.
== END 2018-05-24 15:03 | disposition home or self-care (01) ==
LOC: WCC 15:02
PROVIDERS: ATTEND Family Medicine
DX: T81.89XD Other complications of procedures, not elsewhere classified, subsequent encounter (principal); E11.9 Type 2 diabetes mellitus without complications; I10 Essential (primary) hypertension; C18.9 Malignant neoplasm of colon, unspecified
CPT/HCPCS: 97602; A4218

== ENCOUNTER 2018-05-28 13:01 | Day surgery (SDC) | payer OTHER, SELFPAY ==
[2018-05-28] MEDS ORDERED: LEUCOVORIN CALCIUM IVPB SCH (13:15)
[2018-05-28] MEDS ORDERED: DEXTROSE 5% IVPB SCH ×2 (13:15)
[2018-05-28] MEDS ORDERED: FLUOROURACIL IVPB SCH (13:15)
[2018-05-28] MEDS ORDERED: WATER IVPB SCH ×2 (13:15)
[2018-05-28 13:27] VITALS: BP 169/87; TEMP 98.3
== END 2018-05-28 15:04 | disposition home or self-care (01) ==
LOC: ONC/OP 13:01
PROVIDERS: ATTEND Internal Medicine Medical Oncology
DX: Z51.11 Encounter for antineoplastic chemotherapy (principal); C18.9 Malignant neoplasm of colon, unspecified
CPT/HCPCS: 96367; 96413; J0640; J7070; J9190

== ENCOUNTER 2018-05-29 12:40 | Day surgery (SDC) | payer OTHER, SELFPAY ==
[2018-05-29] MEDS ORDERED: WATER IVPB SCH ×2 (13:00)
[2018-05-29] MEDS ORDERED: SODIUM CHLORIDE 0.9% IVPB SCH (13:00)
[2018-05-29] MEDS ORDERED: FLUOROURACIL IVPB SCH ×2 (13:00)
[2018-05-29] MEDS ORDERED: LEUCOVORIN CALCIUM IVPB SCH (13:00)
[2018-05-29] MEDS ORDERED: DEXTROSE 5% IVPB SCH ×2 (13:00)
[2018-05-29 14:15] VITALS: BP 164/82; TEMP 97.9
== END 2018-05-29 15:19 | disposition home or self-care (01) ==
LOC: ONC/OP 12:40
PROVIDERS: ATTEND Internal Medicine Medical Oncology
DX: Z51.11 Encounter for antineoplastic chemotherapy (principal); C18.9 Malignant neoplasm of colon, unspecified
CPT/HCPCS: 96367; 96413; J0640; J7050; J7070; J9190

== ENCOUNTER 2018-05-30 12:42 | Day surgery (SDC) | payer OTHER ==
[2018-05-30] MEDS ORDERED: DEXTROSE 5% IVPB SCH (13:00)
[2018-05-30] MEDS ORDERED: WATER IVPB SCH (13:00)
[2018-05-30] MEDS ORDERED: SODIUM CHLORIDE 0.9% IVPB SCH (13:00)
[2018-05-30] MEDS ORDERED: FLUOROURACIL IVPB SCH (13:00)
[2018-05-30] MEDS ORDERED: LEUCOVORIN CALCIUM IVPB SCH (13:00)
[2018-05-30 13:28] VITALS: BP 144/84; TEMP 98.3
== END 2018-05-30 16:25 | disposition home or self-care (01) ==
LOC: ONC/OP 12:42
PROVIDERS: ATTEND Internal Medicine Medical Oncology
DX: Z51.11 Encounter for antineoplastic chemotherapy (principal); C18.9 Malignant neoplasm of colon, unspecified
CPT/HCPCS: 96367; 96413; J0640; J7050; J7070; J9190

== ENCOUNTER 2018-05-31 12:56 | Day surgery (SDC) | payer OTHER ==
[2018-05-31] MEDS ORDERED: Sodium Chloride 0.9% 20 ML ONE (13:06)
[2018-05-31] MEDS ORDERED: DEXTROSE 5% IVPB SCH (13:15)
[2018-05-31] MEDS ORDERED: FLUOROURACIL IVPB SCH ×2 (13:15)
[2018-05-31] MEDS ORDERED: LEUCOVORIN CALCIUM IVPB SCH (13:15)
[2018-05-31] MEDS ORDERED: WATER IVPB SCH (13:15)
[2018-05-31] MEDS ORDERED: SODIUM CHLORIDE 0.9% IVPB SCH ×2 (13:15)
[2018-05-31 13:29] VITALS: BP 135/77; TEMP 98.5
== END 2018-05-31 15:14 | disposition home or self-care (01) ==
LOC: ONC/OP 12:56
PROVIDERS: ATTEND Internal Medicine Medical Oncology
DX: Z51.11 Encounter for antineoplastic chemotherapy (principal); C18.9 Malignant neoplasm of colon, unspecified
CPT/HCPCS: 96376; 96413; J0640; J7050; J7070; J9190

== ENCOUNTER 2018-06-01 12:49 | Day surgery (SDC) | payer OTHER ==
[2018-06-01] MEDS ORDERED: SODIUM CHLORIDE 0.9% IVPB SCH (13:00)
[2018-06-01] MEDS ORDERED: LEUCOVORIN CALCIUM IVPB SCH (13:00)
[2018-06-01] MEDS ORDERED: FLUOROURACIL IVPB SCH (13:00)
[2018-06-01] MEDS ORDERED: DEXTROSE 5% IVPB SCH (13:00)
[2018-06-01] MEDS ORDERED: WATER IVPB SCH (13:00)
[2018-06-01 16:04] VITALS: BP 162/85; TEMP 98.5
== END 2018-06-01 16:06 | disposition home or self-care (01) ==
LOC: ONC/OP 12:49
PROVIDERS: ATTEND Internal Medicine Medical Oncology
DX: Z51.11 Encounter for antineoplastic chemotherapy (principal); C18.9 Malignant neoplasm of colon, unspecified
CPT/HCPCS: 96367; 96413; J0640; J7050; J7070; J9190

== ENCOUNTER 2018-06-25 12:41 | Day surgery (SDC) | payer OTHER, SELFPAY ==
[2018-06-25 13:30] VITALS: BP 193/97; TEMP 98.5
[2018-06-25] MEDS ORDERED: WATER IVPB SCH (13:30)
[2018-06-25] MEDS ORDERED: DEXTROSE 5% IVPB SCH (13:30)
[2018-06-25] MEDS ORDERED: FLUOROURACIL IVPB SCH (13:30)
[2018-06-25] MEDS ORDERED: LEUCOVORIN CALCIUM IVPB SCH (13:30)
[2018-06-25] MEDS ORDERED: SODIUM CHLORIDE 0.9% IVPB SCH (13:30)
== END 2018-06-25 19:29 | disposition home or self-care (01) ==
LOC: ONC/OP 12:41
PROVIDERS: ATTEND Internal Medicine Medical Oncology
DX: Z51.11 Encounter for antineoplastic chemotherapy (principal); C18.9 Malignant neoplasm of colon, unspecified
CPT/HCPCS: 96367; 96413; J0640; J7050; J7070; J9190

== ENCOUNTER 2018-06-26 12:40 | Day surgery (SDC) | payer OTHER, SELFPAY ==
[2018-06-26] MEDS ORDERED: DEXTROSE 5% IVPB SCH (13:00)
[2018-06-26] MEDS ORDERED: SODIUM CHLORIDE 0.9% IVPB SCH (13:00)
[2018-06-26] MEDS ORDERED: FLUOROURACIL IVPB SCH (13:00)
[2018-06-26] MEDS ORDERED: WATER IVPB SCH (13:00)
[2018-06-26] MEDS ORDERED: LEUCOVORIN CALCIUM IVPB SCH (13:00)
[2018-06-26] MEDS ORDERED: Sodium Chloride 0.9% 20 ML ONE (14:45)
== END 2018-06-26 15:27 | disposition home or self-care (01) ==
LOC: ONC/OP 12:40
PROVIDERS: ATTEND Internal Medicine Medical Oncology
DX: Z51.11 Encounter for antineoplastic chemotherapy (principal); C18.9 Malignant neoplasm of colon, unspecified
CPT/HCPCS: 96367; 96413; J0640; J7050; J7070; J9190

== ENCOUNTER 2018-06-27 13:10 | Day surgery (SDC) | payer OTHER, SELFPAY ==
[2018-06-27] MEDS ORDERED: LEUCOVORIN CALCIUM IVPB SCH (16:15)
[2018-06-27] MEDS ORDERED: WATER IVPB SCH (16:15)
[2018-06-27] MEDS ORDERED: DEXTROSE 5% IVPB SCH (16:15)
[2018-06-27] MEDS ORDERED: FLUOROURACIL IVPB SCH (16:15)
[2018-06-27] MEDS ORDERED: SODIUM CHLORIDE 0.9% IVPB SCH (16:15)
[2018-06-27 17:57] VITALS: BP 130/72; TEMP 98.8
== END 2018-06-27 17:56 | disposition home or self-care (01) ==
LOC: ONC/OP 13:10
PROVIDERS: ATTEND Internal Medicine Medical Oncology
DX: Z51.11 Encounter for antineoplastic chemotherapy (principal); C18.9 Malignant neoplasm of colon, unspecified
CPT/HCPCS: 96367; 96413; J0640; J7050; J7070; J9190

== ENCOUNTER 2018-06-28 12:40 | Day surgery (SDC) | payer OTHER, SELFPAY ==
[2018-06-28] MEDS ORDERED: Sodium Chloride 0.9% 20 ML ONE (13:11)
[2018-06-28 13:18] VITALS: BP 138/78; TEMP 99
[2018-06-28] MEDS ORDERED: FLUOROURACIL IVPB SCH (14:15)
[2018-06-28] MEDS ORDERED: LEUCOVORIN CALCIUM IVPB SCH (14:15)
[2018-06-28] MEDS ORDERED: DEXTROSE 5% IVPB SCH (14:15)
[2018-06-28] MEDS ORDERED: SODIUM CHLORIDE 0.9% IVPB SCH (14:15)
[2018-06-28] MEDS ORDERED: WATER IVPB SCH (14:15)
== END 2018-06-28 17:57 | disposition home or self-care (01) ==
LOC: ONC/OP 12:40
PROVIDERS: ATTEND Internal Medicine Medical Oncology
DX: Z51.11 Encounter for antineoplastic chemotherapy (principal); C18.9 Malignant neoplasm of colon, unspecified
CPT/HCPCS: 96367; 96413; J0640; J7050; J7070; J9190

== ENCOUNTER 2018-06-29 12:43 | Day surgery (SDC) | payer SELFPAY ==
[2018-06-29 12:59] VITALS: BP 136/82; TEMP 98.5
[2018-06-29] MEDS ORDERED: DEXTROSE 5% IVPB SCH (13:00)
[2018-06-29] MEDS ORDERED: FLUOROURACIL IVPB SCH (13:00)
[2018-06-29] MEDS ORDERED: SODIUM CHLORIDE 0.9% IVPB SCH (13:00)
[2018-06-29] MEDS ORDERED: LEUCOVORIN CALCIUM IVPB SCH (13:00)
[2018-06-29] MEDS ORDERED: WATER IVPB SCH (13:00)
== END 2018-06-29 15:44 | disposition home or self-care (01) ==
LOC: ONC/OP 12:43
PROVIDERS: ATTEND Internal Medicine Medical Oncology
DX: Z51.11 Encounter for antineoplastic chemotherapy (principal); C18.9 Malignant neoplasm of colon, unspecified; I10 Essential (primary) hypertension; E11.9 Type 2 diabetes mellitus without complications; F84.5 Asperger's syndrome; Z79.2 Long term (current) use of antibiotics; Z79.899 Other long term (current) drug therapy; Z98.890 Other specified postprocedural states
CPT/HCPCS: 96367; 96413; J0640; J7050; J7070; J9190

== ENCOUNTER 2018-07-23 12:39 | Day surgery (SDC) | payer OTHER ==
[2018-07-23] MEDS ORDERED: LEUCOVORIN CALCIUM IVPB SCH (13:00)
[2018-07-23] MEDS ORDERED: FLUOROURACIL IVPB SCH (13:00)
[2018-07-23] MEDS ORDERED: SODIUM CHLORIDE 0.9% IVPB SCH (13:00)
[2018-07-23] MEDS ORDERED: WATER IVPB SCH (13:00)
[2018-07-23] MEDS ORDERED: DEXTROSE 5% IVPB SCH (13:00)
[2018-07-23] MEDS ORDERED: Sodium Chloride 0.9% 20 ML ONE (13:29)
== END 2018-07-23 14:42 | disposition home or self-care (01) ==
LOC: ONC/OP 12:39
PROVIDERS: ATTEND Internal Medicine Medical Oncology
DX: Z51.11 Encounter for antineoplastic chemotherapy (principal); C18.9 Malignant neoplasm of colon, unspecified; Z79.899 Other long term (current) drug therapy
CPT/HCPCS: 96367; 96413; J0640; J7050; J7070; J9190

== ENCOUNTER 2018-07-24 13:00 | Day surgery (SDC) | payer OTHER ==
[2018-07-24] MEDS ORDERED: SODIUM CHLORIDE 0.9% IVPB SCH (13:15)
[2018-07-24] MEDS ORDERED: FLUOROURACIL IVPB SCH (13:15)
[2018-07-24] MEDS ORDERED: DEXTROSE 5% IVPB SCH (13:15)
[2018-07-24] MEDS ORDERED: LEUCOVORIN CALCIUM IVPB SCH (13:15)
[2018-07-24] MEDS ORDERED: WATER IVPB SCH (13:15)
[2018-07-24] MEDS ORDERED: Sodium Chloride 0.9% 20 ML ONE (13:40)
[2018-07-24 15:13] VITALS: BP 141/70; TEMP 98.5
== END 2018-07-24 15:15 | disposition home or self-care (01) ==
LOC: ONC/OP 13:00
PROVIDERS: ATTEND Internal Medicine Medical Oncology
DX: Z51.11 Encounter for antineoplastic chemotherapy (principal); C18.9 Malignant neoplasm of colon, unspecified
CPT/HCPCS: 96366; 96413; J0640; J7050; J7070; J9190

== ENCOUNTER 2018-07-25 12:05 | Day surgery (SDC) | payer OTHER ==
[2018-07-25] MEDS ORDERED: LEUCOVORIN CALCIUM IVPB SCH (12:15)
[2018-07-25] MEDS ORDERED: WATER IVPB SCH (12:15)
[2018-07-25] MEDS ORDERED: FLUOROURACIL IVPB SCH (12:15)
[2018-07-25] MEDS ORDERED: SODIUM CHLORIDE 0.9% IVPB SCH (12:15)
[2018-07-25] MEDS ORDERED: DEXTROSE 5% IVPB SCH (12:15)
[2018-07-25 12:43] VITALS: BP 177/83; TEMP 98.1
== END 2018-07-25 13:51 | disposition home or self-care (01) ==
LOC: ONC/OP 12:05
PROVIDERS: ATTEND Internal Medicine Medical Oncology
DX: Z51.11 Encounter for antineoplastic chemotherapy (principal); C18.9 Malignant neoplasm of colon, unspecified
CPT/HCPCS: 96367; 96413; J0640; J7050; J7070; J9190

== ENCOUNTER 2018-07-26 12:32 | Day surgery (SDC) | payer SELFPAY ==
[2018-07-26] MEDS ORDERED: FLUOROURACIL IVPB SCH (12:45)
[2018-07-26] MEDS ORDERED: LEUCOVORIN CALCIUM IVPB SCH (12:45)
[2018-07-26] MEDS ORDERED: SODIUM CHLORIDE 0.9% IVPB SCH (12:45)
[2018-07-26] MEDS ORDERED: WATER IVPB SCH (12:45)
[2018-07-26] MEDS ORDERED: DEXTROSE 5% IVPB SCH (12:45)
[2018-07-26] MEDS ORDERED: Sodium Chloride 0.9% 20 ML ONE (12:50)
== END 2018-07-26 14:14 | disposition home or self-care (01) ==
LOC: ONC/OP 12:32
PROVIDERS: ATTEND Internal Medicine Medical Oncology
DX: Z51.11 Encounter for antineoplastic chemotherapy (principal); C18.9 Malignant neoplasm of colon, unspecified
CPT/HCPCS: 96367; 96413; J0640; J7050; J7070; J9190

== ENCOUNTER 2018-07-27 12:10 | Day surgery (SDC) | payer OTHER, SELFPAY ==
[2018-07-27] MEDS ORDERED: FLUOROURACIL IVPB SCH (13:15)
[2018-07-27] MEDS ORDERED: LEUCOVORIN CALCIUM IVPB SCH (13:15)
[2018-07-27] MEDS ORDERED: SODIUM CHLORIDE 0.9% IVPB SCH (13:15)
[2018-07-27] MEDS ORDERED: DEXTROSE 5% IVPB SCH (13:15)
[2018-07-27] MEDS ORDERED: WATER IVPB SCH (13:15)
[2018-07-27 13:16] VITALS: BP 129/71; TEMP 98.4
== END 2018-07-27 15:16 | disposition home or self-care (01) ==
LOC: ONC/OP 12:10
PROVIDERS: ATTEND Internal Medicine Medical Oncology
DX: Z51.11 Encounter for antineoplastic chemotherapy (principal); C18.9 Malignant neoplasm of colon, unspecified
CPT/HCPCS: 96413; 96417; J0640; J7050; J7070; J9190

== ENCOUNTER 2018-08-20 12:39 | Day surgery (SDC) | payer SELFPAY ==
[2018-08-20] MEDS ORDERED: Sodium Chloride 0.9% 20 ML ONE (13:30)
[2018-08-20] MEDS ORDERED: FLUOROURACIL IVPB SCH (13:45)
[2018-08-20] MEDS ORDERED: DEXTROSE 5% IVPB SCH ×2 (13:45)
[2018-08-20] MEDS ORDERED: WATER IVPB SCH ×2 (13:45)
[2018-08-20] MEDS ORDERED: LEUCOVORIN CALCIUM IVPB SCH (13:45)
[2018-08-20 14:33] VITALS: BP 175/92; TEMP 97.7
== END 2018-08-20 15:40 | disposition home or self-care (01) ==
LOC: ONC/OP 12:39
PROVIDERS: ATTEND Internal Medicine Medical Oncology
DX: Z51.11 Encounter for antineoplastic chemotherapy (principal); C18.9 Malignant neoplasm of colon, unspecified; Z79.899 Other long term (current) drug therapy; Z79.2 Long term (current) use of antibiotics
CPT/HCPCS: 96367; 96413; J0640; J7070; J9190

== ENCOUNTER 2018-08-21 12:38 | Day surgery (SDC) | payer SELFPAY ==
[2018-08-21] MEDS ORDERED: Sodium Chloride 0.9% 20 ML ONE ×2 (12:45→13:11)
[2018-08-21] MEDS ORDERED: DEXTROSE 5% IVPB SCH ×3 (13:15→14:00)
[2018-08-21] MEDS ORDERED: FLUOROURACIL IVPB SCH ×2 (13:15→13:30)
[2018-08-21] MEDS ORDERED: WATER IVPB SCH ×3 (13:15→14:00)
[2018-08-21 13:58] VITALS: BP 153/84; TEMP 98.5
[2018-08-21] MEDS ORDERED: LEUCOVORIN CALCIUM IVPB SCH (14:00)
== END 2018-08-21 18:32 | disposition home or self-care (01) ==
LOC: ONC/OP 12:38
PROVIDERS: ATTEND Internal Medicine Medical Oncology
DX: Z51.11 Encounter for antineoplastic chemotherapy (principal); C18.9 Malignant neoplasm of colon, unspecified; Z79.899 Other long term (current) drug therapy
CPT/HCPCS: 96413; 96417; J0640; J7070; J9190

== ENCOUNTER 2018-08-22 12:11 | Day surgery (SDC) | payer SELFPAY ==
[2018-08-22] MEDS ORDERED: Sodium Chloride 0.9% 20 ML ONE (12:23)
[2018-08-22] MEDS ORDERED: FLUOROURACIL IVPB SCH (12:30)
[2018-08-22] MEDS ORDERED: WATER IVPB SCH ×2 (12:30)
[2018-08-22] MEDS ORDERED: DEXTROSE 5% IVPB SCH ×2 (12:30)
[2018-08-22] MEDS ORDERED: LEUCOVORIN CALCIUM IVPB SCH (12:30)
[2018-08-22 12:33] VITALS: BP 176/89; TEMP 97.6
== END 2018-08-22 14:39 | disposition home or self-care (01) ==
LOC: ONC/OP 12:11
PROVIDERS: ATTEND Internal Medicine Medical Oncology
DX: Z51.11 Encounter for antineoplastic chemotherapy (principal); C18.9 Malignant neoplasm of colon, unspecified
CPT/HCPCS: 96367; 96413; J0640; J7070; J9190

== ENCOUNTER 2018-08-23 12:37 | Day surgery (SDC) | payer SELFPAY ==
[2018-08-23] MEDS ORDERED: FLUOROURACIL IVPB SCH ×2 (13:00→13:15)
[2018-08-23] MEDS ORDERED: WATER IVPB SCH ×3 (13:00→13:15)
[2018-08-23] MEDS ORDERED: LEUCOVORIN CALCIUM IVPB SCH (13:00)
[2018-08-23] MEDS ORDERED: DEXTROSE 5% IVPB SCH ×3 (13:00→13:15)
[2018-08-23] MEDS ORDERED: Sodium Chloride 0.9% 30 ML ONE (13:36)
== END 2018-08-23 14:31 | disposition home or self-care (01) ==
LOC: ONC/OP 12:37
PROVIDERS: ATTEND Internal Medicine Medical Oncology
DX: Z51.11 Encounter for antineoplastic chemotherapy (principal); C18.9 Malignant neoplasm of colon, unspecified
CPT/HCPCS: 96367; 96413; J0640; J7070; J9190

== ENCOUNTER 2018-08-24 06:57 | Day surgery (SDC) | payer OTHER, SELFPAY ==
[~2018-08-24 06:57] MED LIST changes: +DEXTROSE 5% IVPB SCH; +FLUOROURACIL IVPB SCH; +LEUCOVORIN CALCIUM IVPB SCH; -Sodium Chloride 0.9% 15 ML NEB ONE; +WATER IVPB SCH
[2018-08-24] MEDS ORDERED: FLUOROURACIL IVPB SCH (07:45)
[2018-08-24] MEDS ORDERED: DEXTROSE 5% IVPB SCH (07:45)
[2018-08-24] MEDS ORDERED: WATER IVPB SCH (07:45)
[2018-08-24] MEDS ORDERED: Sodium Chloride 0.9% 20 ML ONE ×2 (13:20→14:59)
[2018-08-24 13:31] VITALS: BP 143/74; TEMP 98
== END 2018-08-24 16:00 | disposition home or self-care (01) ==
LOC: ONC/OP 06:57
PROVIDERS: ATTEND Internal Medicine Medical Oncology
DX: Z51.11 Encounter for antineoplastic chemotherapy (principal); C18.9 Malignant neoplasm of colon, unspecified
CPT/HCPCS: 96367; 96413; J0640; J7070; J9190

== ENCOUNTER 2018-09-25 01:15 | Outpatient (CLI) | payer OTHER ==
[2018-09-25 16:39] LABS: #Eosinphils 0.2 thou/uL (0.0-0.7); #Lymphocytes 2.5 thou/uL (1.20-3.40); #Monocytes 0.7 thou/uL (0.11-0.59); #Neutrophils 6.6 thou/uL (1.40-6.50); %Basophils 0.2 % (0.0-1.0); %Eosinophils 2.3 % (0.0-10.0); %Lymphocytes 24.6 % (21.0-51.0); %Monocytes 7.3 % (0.0-10.0); %Neutrophils 65.6 % (42.0-75.0); Hemoglobin 15.5 g/dL (14.0-18.0); Mean Corpuscular HGB CONC 32.3 g/dL (32.0-36.0); Mean Corpuscular Hemoglobin 30.6 pg (27.0-31.0); Mean Corpuscular Volume 94.7 fL (78.0-98.0); Mean Platelet Volume 8.2 fL (7.4-10.4); Platelet Count 254 thou/uL (130-400); RBC Distribution Width 13.6 % (11.5-14.5); Red Blood Cell (RBC) Count 5.05 mill/uL (4.70-6.10)
[2018-09-25 16:41] LABS: Hemoglobin A1c 5.7 % (4.0-6.0)
[2018-09-25 17:02] LABS: Anion Gap 12 mmol/L (10-20); BUN (Urea Nitrogen) 18 mg/dL (8.4-25.7); Calc. Creatinine Clearance 0 mL/min (70-130); Carbon Dioxide 27 mmol/L (22-29); Chloride 106 mmol/L (98-107); Estimated GFR-MDRD 83; Glucose 101 mg/dL (70-105); Potassium 4.4 mmol/L (3.5-5.1); Sodium 141 mmol/L (136-145)
--- NOTE | 2018-09-26 17:04 | EKG ---
Test Reason : Blood Pressure : / mmHG Vent. Rate : 082 BPM Atrial Rate : 082 BPM P-R Int : 166 ms QRS Dur : 108 ms QT Int : 410 ms P-R-T Axes : 018 093 053 degrees QTc Int : 479 ms Normal sinus rhythm Rightward axis Non-specific intra-ventricular conduction delay Abnormal ECG Confirmed by KYLAH VILLANUEVA ([id number]) on 09/26/2018 5:03:47 PM Referred By: CAROLYN Confirmed By:KYLAH VILLANUEVA
== END 2018-09-25 01:16 | disposition home or self-care (01) ==
LOC: LABBT 01:15
PROVIDERS: ATTEND Surgery
DX: Z01.818 Encounter for other preprocedural examination (principal); K56.609 Unspecified intestinal obstruction, unspecified as to partial versus complete obstruction
CPT/HCPCS: 80048; 83036; 85025; 93005; 93010

== ENCOUNTER 2018-09-25 09:16 | Outpatient (CLI) | payer OTHER ==
[2018-09-25] MEDS ORDERED: MD-Gastroview 120 ML BOT ONE (10:12)
--- NOTE | 2018-09-25 11:11 | RAD ---
SOLID COLUMN BARIUM ENEMA: HISTORY: K56.609, large bowel obstruction. Mass. COMPARISON: CTs abdomen and pelvis from 01/31/2018 and from 01/20/2018. FINDINGS: Dehydrogenation Converter Helper radiograph of the pelvis demonstrates mild degenerative disease at the lower lumbar spine and f acet arthropathy. The patient was brought to the fluoroscopy suite. All questions were answered. Gastrografin was ins tilled, retrograde, through the rectum. Contrast was seen throughout the sigmoid colon, to the level of the suture. No evidence of leak. Mild diverticular disease. IMPRESSION: No evidence of leak. POS: ASHTYN
== END 2018-09-25 09:17 | disposition home or self-care (01) ==
LOC: RAD 09:16
PROVIDERS: ATTEND Surgery
DX: K56.609 Unspecified intestinal obstruction, unspecified as to partial versus complete obstruction (principal)
CPT/HCPCS: 74270; Q9963

== ENCOUNTER 2018-09-25 13:00 | Inpatient (IN) | payer OTHER ==
[2018-09-25 16:37] VITALS: BMI 38.5
[2018-10-02] MEDS ORDERED: Midazolam HCl 2 mg/2 ml Vial ONE (06:12)
[2018-10-02] MEDS ORDERED: Fentanyl 100 MCG/2 ML VIAL ONE ×2 (06:12→06:49)
[2018-10-02] MEDS ORDERED: Dexamethasone 4 mg/ml Vial ONE (06:16)
[2018-10-02] MEDS ORDERED: Lidocaine 1% (PF) 30 ML VIAL ONE (06:26)
[2018-10-02] MEDS ORDERED: Neomycin-Polymyxin 1 ML AMP ONE (06:29)
[2018-10-02] MEDS ORDERED: cefOXitin Sodium/Dextrose,Iso 2 GM in Premix Bag 1 BAG IVPB SCH (06:30)
[2018-10-02] MEDS ORDERED: Acetaminophen 1,000 MG in Premix Bag 1 BAG IVPB SCH (06:30)
[2018-10-02] MEDS ORDERED: ceFOXitin 1 GM VIAL ONE ×2 (10:02→11:52)
[2018-10-02] MEDS ORDERED: Rocuronium Bromide 50 MG/5 ML VIAL ONE (10:52)
[2018-10-02] MEDS ORDERED: SUGAMMADEX SODIUM 500 MG/5 ML VIAL ONE (10:52)
[2018-10-02] MEDS ORDERED: Bupivacaine HCl 0.5%/Epinephrine 1:200,000/PF 30 ml Vial ONE (11:49)
[2018-10-02] MEDS ORDERED: ePHEDrine 50 MG/ML VIAL ONE (11:57)
[2018-10-02] MEDS ORDERED: Ketorolac Tromethamine 30 MG/ML VIAL ONE (11:57)
[2018-10-02] MEDS ORDERED: Lidocaine 1% PF 5 ML VIAL ONE (11:57)
[2018-10-02] MEDS ORDERED: Rocuronium Bromide 10 MG/ML (10ML VIAL) ONE (11:57)
[2018-10-02] MEDS ORDERED: Glycopyrrolate 0.2 MG/ML 5 ML SYRINGE ONE (11:57)
[2018-10-02] MEDS ORDERED: PROPOFOL 200 MG/20 ML VIAL ONE (11:57)
[2018-10-02] MEDS ORDERED: PHENYLEPHRINE-NS 100 MCG/ML 10 ML SYRINGE ONE (11:57)
[2018-10-02] MEDS ORDERED: Vecuronium 10 MG VIAL ONE (11:57)
[2018-10-02] MEDS ORDERED: Promethazine HCl 25 MG/ML VIAL IM PRN ×2 (12:16→13:19)
[2018-10-02] MEDS ORDERED: Promethazine HCl 25 MG/ML VIAL SLOW IVP PRN (12:16)
[2018-10-02] MEDS ORDERED: Ondansetron HCl/PF 4 MG/2 ML Vial IVP PRN (12:16)
[2018-10-02] MEDS ORDERED: Sodium Chloride 0.9% 10 ML ONE (13:08)
[2018-10-02] MEDS ORDERED: Ondansetron ODT 4 MG TAB PO PRN (13:19)
[2018-10-02] MEDS ORDERED: Dextrose 5% in Water 1,000 ML IV PRN (13:19)
[2018-10-02] MEDS ORDERED: Dextrose 50% Abboject 50 ML SYRINGE SLOW IVP PRN (13:19)
[2018-10-02] MEDS ORDERED: HumaLOG 300 UNITS/3 ML VIAL SC PRN (13:19)
[2018-10-02] MEDS ORDERED: Morphine 4 MG/ML VIAL SLOW IVP PRN (13:19)
--- NOTE | 2018-10-02 14:35 | OP ---
DATE OF PROCEDURE: 10/02/2018 PREOPERATIVE DIAGNOSES: 1. Colon cancer, status post colectomy with end colostomy. 2. Undesired colostomy. 3. 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 POSTOPERATIVE DIAGNOSIS: Chronic anterior abdominal wound measuring 9 x 7 cm. PROCEDURES PERFORMED: 1. Exploratory laparotomy. 2. Adhesiolysis. 3. Colostomy takedown with colorectal anastomosis. 4. Placement of feeding nasojejunal tube. ANESTHESIA: General endotracheal. ESTIMATED BLOOD LOSS: 200 mL. FLUIDS GIVEN: 1800 mL crystalloids. COUNTS: Sponge and instrument counts were verified as correct x2. COMPLICATIONS: None apparent at the time of operation. INDICATIONS FOR OPERATION: This is a 53-year-old man with a previous history of colon cancer with obstruction requiring emergent operation colectomy with end colostomy. The patient was seen outpatient desiring colostomy takedown. He had a chronic anterior abdominal wound, which still has no infection. Wound has failed to heal. Decision was made to bring him to the operating room today for excision of chronic abdominal wound and colostomy takedown. Findings are consistent with stable chronic anterior abdominal wound, extensive intraabdominal adhesions with no evidence of intraabdominal metastasis. DESCRIPTION OF PROCEDURE: Informed consent was obtained from the patient, who was brought to the operating room and placed in supine position. Following general anesthesia, a Mccullough catheter was inserted and placed to bedside drain. Nasogastric tube was inserted and placed to wall suction. Abdomen was sterilely prepped and draped in the usual fashion after the colostomy was sutured closed using 2-0 silk. The ostomy site was also separately draped out of the abdomen. An elliptical incision was made around the chronic abdominal wound. The wound was then grasped with Jessica and circumferentially excised down to the level of the fascia using cautery. The wound was passed off the operative field followed by transmission to Pathology. Good hemostasis was noted in place. The fascia was then incised midline exposing the peritoneum, which was grasped x2 with hemostats. The peritoneal cavity was sharply entered using Metzenbaum scissors. The peritoneal cavity was entered. Incision was extended superiorly and posteriorly. Bookwalter retractor was put in place to gain exposure. Extensive amount of intraabdominal adhesion was encountered involving the multiple loops of small bowel. Meticulous adhesiolysis was undertaken using Metzenbaum scissors. Small bowel was then run from ligament of Treitz down to terminal ileum finding no pathology. Large intestine was inspected from the cecum through the ascending, transverse, descending colon, down to the level of the exit of the colostomy. No pathology was noted. The remnant long Devante pouch was readily identified. It was palpated free of any abnormalities. I palpated the liver free of any masses. The spleen was noted in the usual anatomic location, also devoid of any abnormalities on palpation. Previous nasogastric tube was palpated within the gastric lumen. At this juncture, we decided to proceed with colostomy takedown. The stay sutures in the posterior rectus fascia were excised around the ostomy. A DARREN stapler was then used to divide the bowel at that level. The stump of the colostomy was pushed into the split rectus muscle and the posterior rectus fascia was closed using interrupted sutures of 0 Vicryl. At this juncture, a feeding nasojejunal tube was inserted by Anesthesia, the tip of which was palpated by myself within the gastric lumen. I manipulated tip of this catheter into proximal small bowel without resistance. I turned my attention to the staple line of the descending colon, which was brought in a mwut-af-zxyj fashion with the long Devante pouch. The distal 6 cm of this bowel appeared narrowed. I decided therefore to excise this in order to be sure that the approximated bowel has good blood supply. I then created a rent through the mesentery, introducing the DARREN stapler and distal 6 inches approximately was divided and passed off the operative field followed by transmission to pathology after the mesentery of the specimen was serially divided between the LigaSure device with good hemostasis. The staple end of the descending colon as well as the long Devante pouch were approximated in a pwkh-co-umjd antimesenteric border using interrupted sutures of 3-0 silk. Enterotomies were then made at both apices, through which free ends of DARREN stapler were introduced. The DARREN stapler was fired and functional end-to-end but anatomic [id number]-sp-[id number] colorectal anastomosis was perfected. The common enterotomies were closed using re-loaded DARREN stapler. Resultant mesenteric defect was closed using a running stitch of 2-0 Vicryl. Small bowel was inspected again in the usual anatomic location. Finding no other pathology, exploration was terminated. The abdominal cavity was copiously irrigated out with saline solution until it was clear. A sheet of Seprafilm was placed in the deep pelvis and small bowel returned to normal anatomic location. A second piece of Seprafilm was placed over the small bowel and omentum is drawn over the remainder of the viscera. The fascia was circumferentially freshened up after we excised the anterior hernia sac circumferentially down to the unga fascia. A #19 Antonio drain was introduced into the left lower quadrant and allowed to exit the abdominal cavity through a separate stab incision. The drain was secured to anterior abdominal wall using 2-0 silk suture. At this juncture, fascia was approximated in the midline using a running stitch of #1 single stranded PDS. Subcutaneous tissue was pulse lavaged with 3 L of sterile saline. Bilateral subcutaneous pockets were individually drained using 10-flat Juve-Solomon drains, which were allowed to exit the abdominal cavity through separate stab incision. The drain was secured to anterior abdominal wall using 2-0 silk suture. Deep subcutaneous tissues were approximated using interrupted sutures of 2-0 Vicryl. Skin incision was then closed in midline using yasmin. Next, I turned my attention to the previous colostomy site, where an elliptical transverse incision was made incorporating the closed colostomy. The colostomy was then dissected down to the level of the fascia. The entire colostomy segment was dissected off and passed off the operative field following transmission to Pathology. The defect in the anterior rectus fascia was closed using interrupted sutures of 2-0 Vicryl. The pocket was copiously irrigated with saline, noting good hemostasis in place. Subcutaneous tissues again were approximated here using interrupted sutures of 2-0 Vicryl. Skin incision was closed using yasmin. Sterile dressings were applied to both wounds. The patient tolerated the operation without any apparent complication and was returned to the recovery room in satisfactory condition. Job ID: [id number]
[2018-10-02] MEDS: Sodium Chloride 0.9% 1,000 ML IV SCH ×2 (15:04→20:18)
--- NOTE | 2018-10-02 15:11 | RAD ---
KUB: 10/02/18 HISTORY: Dobhoff tube placement. This examination was specifically tailored for evaluation of Dobhoff tube. An NG tube is seen in the fundus region of the stomach. The Dobhoff tube is passed through the duodenum and is within the regio n of the proximal jejunum. IMPRESSION: Dobhoff feeding tube in the jejunum. POS: TPC
[2018-10-02] MEDS: cefOXitin Sodium/Dextrose,Iso 2 GM in Premix Bag 1 BAG IVPB SCH ×2 (15:56→21:08)
[2018-10-02] MEDS: Acetaminophen 1,000 MG in Premix Bag 1 BAG IVPB SCH ×2 (17:43→23:53)
[2018-10-02] MEDS: Ketorolac Tromethamine 30 MG/ML VIAL IVP SCH ×2 (17:43→23:52)
[2018-10-02] MEDS: Enoxaparin Sodium 30 MG/0.3 ML SYRINGE SC SCH (20:18)
[2018-10-03] MEDS: Ketorolac Tromethamine 30 MG/ML VIAL IVP SCH ×3 (05:08→18:39)
[2018-10-03] MEDS: Acetaminophen 1,000 MG in Premix Bag 1 BAG IVPB SCH ×3 (05:09→18:39)
[2018-10-03] MEDS: cefOXitin Sodium/Dextrose,Iso 2 GM in Premix Bag 1 BAG IVPB SCH ×3 (05:20→21:11)
[2018-10-03] MEDS: Sodium Chloride 0.9% 1,000 ML IV SCH ×3 (05:25→21:20)
[2018-10-03 05:31] LABS: #Lymphocytes 1.1 thou/uL (1.20-3.40); #Monocytes 1.2 thou/uL (0.11-0.59); #Neutrophils 10.4 thou/uL (1.40-6.50); %Basophils 0.1 % (0.0-1.0); %Eosinophils 0.1 % (0.0-10.0); %Lymphocytes 8.2 % (21.0-51.0); %Monocytes 9.8 % (0.0-10.0); %Neutrophils 81.8 % (42.0-75.0); Mean Corpuscular HGB CONC 32.1 g/dL (32.0-36.0); Mean Corpuscular Hemoglobin 30.3 pg (27.0-31.0); Mean Corpuscular Volume 94.4 fL (78.0-98.0); Mean Platelet Volume 9.2 fL (7.4-10.4); Platelet Count 228 thou/uL (130-400); RBC Distribution Width 13.6 % (11.5-14.5); Red Blood Cell (RBC) Count 4.62 mill/uL (4.70-6.10); White Blood Cell (WBC) Count 12.7 thou/uL (4.8-10.8)
[2018-10-03 05:48] LABS: Anion Gap 12 mmol/L (10-20); BUN (Urea Nitrogen) 12 mg/dL (8.4-25.7); Calc. Creatinine Clearance 152 mL/min (70-130); Carbon Dioxide 26 mmol/L (22-29); Chloride 104 mmol/L (98-107); Estimated GFR-MDRD 73; Glucose 132 mg/dL (70-105); Phosphorus 3.4 mg/dL (2.3-4.7); Potassium 4.2 mmol/L (3.5-5.1); Sodium 138 mmol/L (136-145)
[2018-10-03] MEDS ORDERED: Potassium Phosphate 15 MMOL in Sodium Chloride 0.9% 250 ML 250 ML IVPB SCH (08:00)
--- NOTE | 2018-10-03 12:55 | PRG ---
DATE OF SERVICE: 10/03/2018 SUBJECTIVE: The patient was seen this morning sitting up in bed, reports he slept well overnight and pain is well controlled on current regimen, has NG tube and has been taking small sips of water, but otherwise is still n.p.o. Abdominal dressing in place. Denies nausea, vomiting, or diarrhea. OBJECTIVE: VITAL SIGNS: Temperature 98.3, pulse 97, respirations 16, oxygen saturation 92% on room air, and blood pressure 139/76. GENERAL: Well-appearing middle-aged male, sitting on the bed with no signs of acute distress. RESPIRATORY: Equal chest rise and fall. Clear breath sounds bilaterally. No signs of acute respiratory distress. CARDIAC: Regular rate and rhythm. No murmurs, gallops, or rubs. GI: Abdomen is soft, nontender, and nondistended. Midline abdominal and colostomy scar with minimal drainage on bandage. Otherwise, yasmin in place and wound is clean, dry, and intact. The patient has 3 GORDON drains. They each have serosanguinous output in the drains with abdominal binder over. EXTREMITIES: Gross motor and sensation intact in all extremities. 2+ pulses in all extremities. No significant swelling noted. LABORATORY FINDINGS: White count 12.7, hemoglobin 14.0, hematocrit 43.6, platelets 228. Sodium 138, potassium 4.2, chloride 104, carbon dioxide 26, BUN 12, creatinine 1.06, glucose 132, phos 3.4, and magnesium 2.0. DIAGNOSTIC FINDINGS: X-ray of the abdomen completed yesterday demonstrates Dobbhoff feeding tube in the jejunum. ASSESSMENT: Status post colostomy takedown. The patient originally went to the OR for diverticulitis and colon cancer. PLAN: The patient is postoperative day #1 for ex-lap adhesiolysis, colostomy takedown with colorectal anastomosis, and placement of feeding NG tube. We will continue the patient with NG tube to suction with sips and chips, normal saline at 120 an hour. NG tube with trickle feeds. We will discontinue Mccullough today. Continue GORDON drains x3. The patient to work with Physical Therapy and encouraged to walk significantly, does not have return of bowel function currently, but we will reassess daily. We will also replace phosphorus today. The patient was seen and examined by Dr. Cruz and myself this morning during rounds. Job ID: [id number]
[2018-10-03] MEDS: Enoxaparin Sodium 30 MG/0.3 ML SYRINGE SC SCH (21:10)
[2018-10-04] MEDS: Ketorolac Tromethamine 30 MG/ML VIAL IVP SCH ×2 (00:07→05:39)
[2018-10-04 04:41] LABS: #Basophils 0.1 thou/uL (0.0-0.2); #Lymphocytes 1.7 thou/uL (1.20-3.40); #Monocytes 1.4 thou/uL (0.11-0.59); #Neutrophils 9.6 thou/uL (1.40-6.50); %Basophils 0.4 % (0.0-1.0); %Eosinophils 0.3 % (0.0-10.0); %Lymphocytes 12.9 % (21.0-51.0); %Monocytes 11.1 % (0.0-10.0); %Neutrophils 75.3 % (42.0-75.0); Hemoglobin 12.5 g/dL (14.0-18.0); Mean Corpuscular HGB CONC 31.2 g/dL (32.0-36.0); Mean Corpuscular Volume 96.2 fL (78.0-98.0); Mean Platelet Volume 8.9 fL (7.4-10.4); Platelet Count 221 thou/uL (130-400); RBC Distribution Width 13.8 % (11.5-14.5); Red Blood Cell (RBC) Count 4.18 mill/uL (4.70-6.10); White Blood Cell (WBC) Count 12.8 thou/uL (4.8-10.8)
[2018-10-04 05:05] LABS: Anion Gap 13 mmol/L (10-20); BUN (Urea Nitrogen) 20 mg/dL (8.4-25.7); Calc. Creatinine Clearance 149 mL/min (70-130); Calcium 9.1 mg/dL (7.8-10.44); Carbon Dioxide 23 mmol/L (22-29); Chloride 108 mmol/L (98-107); Estimated GFR-MDRD 71; Glucose 103 mg/dL (70-105); Magnesium 2.3 mg/dL (1.6-2.6); Phosphorus 2.1 mg/dL (2.3-4.7); Potassium 4.1 mmol/L (3.5-5.1); Sodium 140 mmol/L (136-145)
[2018-10-04] MEDS: cefOXitin Sodium/Dextrose,Iso 2 GM in Premix Bag 1 BAG IVPB SCH ×3 (05:40→21:06)
[2018-10-04] MEDS: Sodium Chloride 0.9% 1,000 ML IV SCH (06:20)
[2018-10-04] MEDS ORDERED: Sodium Phosphate 30 MMOL in Sodium Chloride 0.9% 250 ML 250 ML IVPB SCH (08:30)
[2018-10-04] MEDS: Amlodipine 10 MG TAB PO SCH (09:37)
[2018-10-04] MEDS: Lisinopril 10 MG TAB PO SCH (09:38)
[2018-10-04] MEDS: Metoprolol Tartrate 50 MG TAB PO SCH ×2 (09:38→20:25)
[2018-10-04] MEDS ORDERED: traMADol HCl 50 MG TAB PO PRN ×2 (10:20)
[2018-10-04] MEDS: Acetaminophen 500 MG TAB PO SCH ×3 (11:48→23:52)
[2018-10-04] MEDS: Ibuprofen 800 MG TAB PO SCH ×2 (13:13→20:26)
--- NOTE | 2018-10-04 13:23 | PRG ---
DATE OF SERVICE: 10/04/2018 SUBJECTIVE: The patient was seen this morning, sitting up in bed with no signs of acute distress. Reported pain is well controlled and he slept well overnight. He is currently n.p.o. with NG tube in place. He denies nausea, vomiting, or diarrhea. OBJECTIVE: VITAL SIGNS: Temperature 98.8, pulse 85, respirations are 16, oxygen saturation 93% on room air, and blood pressure 142/77. GENERAL: Well-appearing middle-aged male, sitting up in bed with no signs of acute distress. RESPIRATORY: Equal chest rise and fall. Clear breath sounds bilaterally. No signs of acute respiratory distress. CARDIAC: Regular rate and rhythm. No murmurs, gallops, or rubs. GI: Abdomen is soft, nontender, and nondistended. Midline abdominal colostomy scar with minimal drainage on the bandage. Otherwise, yasmin in place and wound is clean, dry, and intact. The patient has three GORDON drains. They each have serosanguineous output in the drain and abdominal binder is over the wound. EXTREMITIES: Gross motor and sensation intact x4 extremities. 2+ pulses in all extremities. No significant swelling noted. LABORATORY FINDINGS: White count 12.8, hemoglobin 12.5, hematocrit 40.2, and platelets are 221. Sodium 140, potassium 4.1, chloride 108, carbon dioxide 23, BUN 20, creatinine 1.08, glucose 103, phos 2.1, and magnesium 2.3. DIAGNOSTIC FINDINGS: There are no new diagnostic findings to report. ASSESSMENT: Status post colostomy takedown. The patient originally had a colostomy for diverticulitis and colon cancer. PLAN: The patient's NG tube and Dobhoff were removed. He was advanced to a clear liquid diet. IV fluids were discontinued. Drains left in place. He was also transitioned to p.o. pain medications. His home amlodipine, metoprolol, and lisinopril were restarted. His phosphorus was also replaced. The patient is encouraged to continue to ambulate. He will likely be able to be discharged home once he has return of bowel function. The patient was seen and examined with Dr. Cruz and myself this morning during rounds. Job ID: [id number]
[2018-10-04] MEDS: Enoxaparin Sodium 30 MG/0.3 ML SYRINGE SC SCH (20:25)
[2018-10-05 04:54] LABS: #Basophils 0.1 thou/uL (0.0-0.2); #Eosinphils 0.2 thou/uL (0.0-0.7); #Lymphocytes 1.7 thou/uL (1.20-3.40); #Monocytes 0.9 thou/uL (0.11-0.59); #Neutrophils 6.5 thou/uL (1.40-6.50); %Basophils 0.7 % (0.0-1.0); %Eosinophils 1.7 % (0.0-10.0); %Lymphocytes 18.5 % (21.0-51.0); %Neutrophils 69.1 % (42.0-75.0); Mean Corpuscular HGB CONC 31.7 g/dL (32.0-36.0); Mean Corpuscular Hemoglobin 30.6 pg (27.0-31.0); Mean Corpuscular Volume 96.4 fL (78.0-98.0); Mean Platelet Volume 8.8 fL (7.4-10.4); Platelet Count 218 thou/uL (130-400); RBC Distribution Width 13.4 % (11.5-14.5); Red Blood Cell (RBC) Count 3.92 mill/uL (4.70-6.10); White Blood Cell (WBC) Count 9.4 thou/uL (4.8-10.8)
[2018-10-05 05:13] LABS: Anion Gap 11 mmol/L (10-20); BUN (Urea Nitrogen) 15 mg/dL (8.4-25.7); Calc. Creatinine Clearance 194 mL/min (70-130); Calcium 9.4 mg/dL (7.8-10.44); Carbon Dioxide 30 mmol/L (22-29); Chloride 109 mmol/L (98-107); Estimated GFR-MDRD Greater than 90; Glucose 110 mg/dL (70-105); Magnesium 2.2 mg/dL (1.6-2.6); Phosphorus 2.4 mg/dL (2.3-4.7); Potassium 4.5 mmol/L (3.5-5.1); Sodium 145 mmol/L (136-145)
[2018-10-05] MEDS: cefOXitin Sodium/Dextrose,Iso 2 GM in Premix Bag 1 BAG IVPB SCH (05:35)
[2018-10-05] MEDS: Acetaminophen 500 MG TAB PO SCH ×4 (05:35→23:14)
[2018-10-05] MEDS: Ibuprofen 800 MG TAB PO SCH ×3 (05:36→20:27)
[2018-10-05] MEDS: Metoprolol Tartrate 50 MG TAB PO SCH ×2 (08:12→20:27)
[2018-10-05] MEDS: Amlodipine 10 MG TAB PO SCH (08:12)
[2018-10-05] MEDS: Lisinopril 10 MG TAB PO SCH (08:13)
--- NOTE | 2018-10-05 13:11 | PRG ---
DATE OF SERVICE: SUBJECTIVE: This is a 53-year-old male, postop day 3, status post colostomy takedown with Dr. Cruz. There were no acute overnight events. The patient vocalized pain was well controlled and then he has been ambulating regularly. OBJECTIVE: VITAL SIGNS: Temperature 98.7, pulse 78, respirations 18, O2 saturation 95% on room air, blood pressure 149/88. GENERAL: Resting in bed, in no acute distress. PULMONARY: Normal workup of breathing. Symmetric rise. CARDIOVASCULAR: Regular rate and rhythm. GI: Abdomen is soft with mild generalized tenderness. No guarding, rigidity, or signs of peritonitis. Midline incisional wound is clean, dry, and intact. Three JPs in place with minimal serosanguineous drainage. LABORATORY FINDINGS: WBC 9.4, hemoglobin 12.0, hematocrit 37.8, platelet count 218. Sodium 145, potassium 4.5, chloride 109, carbon dioxide 30, BUN 15, creatinine 0.83, glucose 110, phosphorus 2.4, magnesium 2.2. ASSESSMENT: 1. Postop day 3, status post colostomy takedown. 2. Acute pain post surgery. 3. History of hypertension. 4. History of colon cancer. PLAN: The patient reports having multiple bowel movements yesterday. We will advance diet. If he continues to tolerate diet, will likely be a candidate for discharge home tomorrow. Continue pain regimen as ordered. Discontinue antibiotics. Home medications have been resumed at this time. Plan of care was discussed with the patient at bedside and all questions were answered at the time of this dictation. The patient was seen and evaluated with Dr. Cruz. Job ID: [id number]
[2018-10-05] MEDS: Enoxaparin Sodium 30 MG/0.3 ML SYRINGE SC SCH (20:28)
[2018-10-06] MEDS: Ibuprofen 800 MG TAB PO SCH ×2 (04:21→12:16)
[2018-10-06] MEDS: Acetaminophen 500 MG TAB PO SCH ×2 (04:21→10:56)
[2018-10-06 07:57] VITALS: TEMP 97.9
[2018-10-06] MEDS: Lisinopril 10 MG TAB PO SCH (09:28)
[2018-10-06] MEDS: Metoprolol Tartrate 50 MG TAB PO SCH (09:28)
[2018-10-06] MEDS: Amlodipine 10 MG TAB PO SCH (09:28)
[2018-10-06 12:12] VITALS: BP 145/92
--- NOTE | 2018-10-06 13:26 | DIS ---
DATE OF ADMISSION: 10/02/2018 DATE OF DISCHARGE: 10/06/2018 ADMISSION DIAGNOSES: 1. Colon cancer, status post colectomy with end colostomy. 2. Undesired colostomy. 3. Chronic anterior abdominal wound, approximately 9 x 7 cm. 4. History of hypertension. DISCHARGE DIAGNOSES: 1. Colon cancer, status post colectomy with end colostomy. 2. Undesired colostomy. 3. Chronic anterior abdominal wound, approximately 9 x 7 cm. 4. History of hypertension. CONSULTANTS: None. PROCEDURES: On 10/02/2018, scheduled exploratory laparotomy, lysis of adhesion, and colostomy takedown with colorectal anastomosis with Dr. Cruz. HOSPITAL COURSE: This is a 53-year-old gentleman with a history of colon cancer resulting in obstruction requiring emergent operation resulting in colectomy with end-colostomy. The patient had a chronic anterior abdominal wall wound, which remained infected, but failed to heal. The patient was seen and evaluated by Dr. Cruz as an outpatient and the decision was made to bring him to the hospital for colostomy takedown and excision of his chronic wound. Postoperatively, the patient did well. Bowel function did return and he was slowly advanced to a general diet. On the date of discharge, the patient was tolerating a general diet. Pain was controlled with p.o. analgesics. He was ambulating independently. All of his drains had been removed. His wound appeared to be healing well and yasmin remained in place. DISCHARGE DISPOSITION: Home. DISCHARGE CONDITION: Good. PHYSICAL EXAMINATION: VITAL SIGNS: Temperature 97.9, pulse 83, respiration 20, O2 saturation 98% on room air, and blood pressure 143/87. GENERAL: Resting in bed, in no acute distress. PULMONARY: Normal work of breathing. Symmetric rise. CARDIOVASCULAR: Regular rate and rhythm. No obvious murmurs, rubs, or gallops. GI: Midline abdominal incision with yasmin clean, dry, and intact. GORDON drains with minimal serosanguineous drainage. All three drains were removed fully intact prior to discharge. ABDOMEN: Soft. Minimal generalized tenderness. No guarding, rigidity, or signs of peritonitis. MUSCULOSKELETAL: Moves all extremities x4. NEUROLOGIC: GCS is 15. No focal deficit is noted. DISCHARGE INSTRUCTIONS: Discharge instructions were provided to the patient and family, who vocalized their understanding prior to discharge. He is to keep his wound clean, dry, and intact. He should continue daily wound care and dressings. Once the wounds stop draining, he may leave them open to air. He may allow warm water and soap to run over the wounds, but should not scrub them or soak them. He should refrain from lifting heavy objects, nothing weight greater than 20 pounds. DISCHARGE MEDICATIONS: The patient should resume a home antihypertensive regimen. Additionally, he is provided prescriptions for; 1. Tylenol 1000 mg q.6 hours. 2. Ibuprofen 800 mg q.8 hours. 3. Ultram 50 mg q.6 hours p.r.n. for severe pain only #30. FOLLOWUP APPOINTMENTS: The patient should follow up with his primary care provider as needed. He is to follow up with Dr. Cruz in approximately 10 days for wound check. This is merely a summary of the patient's hospitalization. For more depth of information, please see his medical record in its entirety. Job ID: [id number]
== END 2018-10-06 12:06 | disposition home or self-care (01) | DRG 330 ==
LOC: SURG A 10-02 05:56 → SJJU 10-02 14:29
PROVIDERS: ADMIT Surgery; ATTEND Surgery
PROC: 0DBM0ZZ Excision of Descending Colon, Open Approach (ICD-10-PCS; principal; 2018-10-02)
PROC: 0DHA7UZ Insertion of Feeding Device into Jejunum, Via Natural or Artificial Opening (ICD-10-PCS; 2018-10-02)
DX: C18.9 Malignant neoplasm of colon, unspecified (principal); K56.609 Unspecified intestinal obstruction, unspecified as to partial versus complete obstruction; I10 Essential (primary) hypertension
CPT/HCPCS: 36415; 36416; 74018; 80048; 83735; 84100; 85025; 86850; 86900; 86901; 88305; 88307; 88312; 88341; 88342; J0131; J0670; J0694; J1100; J1650; J1885; J2001; J2250; J2270; J2704; J3010; J3490; J7050

== ENCOUNTER 2018-10-01 10:56 | Day surgery (SDC) | payer SELFPAY ==
[2018-09-28 13:02] VITALS: BMI 38.5
[2018-10-01] MEDS ORDERED: hydrALAZINE 20 MG/ML VIAL ONE (11:51)
[2018-10-01] MEDS ORDERED: PROPOFOL 200 MG/20 ML VIAL ONE (16:57)
--- NOTE | 2018-10-01 17:51 | OP ---
DATE OF PROCEDURE: 10/01/2018 PROCEDURES PERFORMED: Completion colonoscopy, colonoscopy with biopsy/polypectomy. INDICATION FOR PROCEDURE: Prior history of colonic adenocarcinoma, status post resection, now presenting for evaluation prior to surgical reanastomosis. DESCRIPTION OF PROCEDURE: After the risks and benefits of the procedure were explained to the patient including risks of bleeding, infection, perforation, reactions to anesthesia, aspiration, and/or pain, informed consent was obtained. The patient was then taken to the endoscopy suite, where deep sedation was administered via propofol and anesthesia support. Once adequate sedation was achieved, the patient was transferred into the left lateral decubitus position, where a digital rectal examination was performed followed by introduction of the standard colonoscope into the rectum and advanced to approximately 40 cm past the anal verge. The surgical cuff was then evaluated at that point with evaluation of the colonic mucosa performed upon withdrawal. Upon completion of this portion of the procedure, the bed was rotated 180 degrees and the standard colonoscope was introduced into the ostomy and advanced to the cecum without difficulty. The quality of the prep on this portion of the procedure was fair, but was amenable to aggressive irrigation and suctioning with copious amounts of sterile water and converted to a good prep. The patient tolerated the procedures well with no immediate perioperative complications. Upon completion of the procedure, all equipment was removed from the patient and he was transferred to Day Stay in satisfactory condition. FINDINGS: Digital rectal examination, normal. Distal colon findings: The mucosa seen up to 40 cm past the anal verge exhibited mildly increased mucosal erythema as well as significant prominence/erythematous lymphoid aggregates, but no other observable masses or cancers. However, at approximately 5 to 10 cm past the anal verge, there was a significant number of linear erosions/submucosal hematomas consistent with diversion colitis. This did not exhibit any significant bleeding upon manipulation with the colonoscope. On retroflexion, there were no abnormalities. Colon findings: The colonoscope was then introduced into the ostomy and advanced to the cecum. There was a large amount of retained semi-solid/adherent stool that was amenable to aggressive irrigation and suctioning. With the irrigation of copious amounts of sterile water, adequate visualization of the colonic mucosa was achieved. Of the mucosa seen, normal-appearing mucosa was seen at the appendiceal orifice and ileocecal valve. Normal-appearing mucosa was also seen within the cecum, ascending colon, transverse colon, and proximal descending colon up until the ostomy. There was a 2 to 3 mm polyp that was seen at approximately 10 cm past the ostomy opening and completely removed with biopsy forceps. He was placed in a specimen jar for evaluation. The ostomy itself did exhibit increased friability, but minimal amounts of oozing at the actual ostomy site. IMPRESSION: 1. A 3-mm polyp within the mid descending colon, status post complete resection with biopsy forceps. 2. 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 3. Otherwise no evidence of recurrent colonic adenocarcinoma or additional large polyps or masses. RECOMMENDATIONS: 1. We will follow up on the biopsy results with repeat colonoscopy interval based on the polyp results. If the polyp is a hyperplastic polyp, I would recommend a repeat colonoscopy in three years. 2. The patient to follow with General Surgery Service for surgical reanastomosis, which would then correct the diversion colitis. 3. Follow up in the GI Clinic as needed. Job ID: [id number]
== END 2018-10-01 15:46 | disposition home or self-care (01) ==
LOC: SDC 10:56
PROVIDERS: ATTEND Internal Medicine
PROC: 0DBM8ZX Excision of Descending Colon, Via Natural or Artificial Opening Endoscopic, Diagnostic (ICD-10-PCS; principal; 2018-10-01)
DX: K63.5 Polyp of colon (principal); K52.89 Other specified noninfective gastroenteritis and colitis; E11.9 Type 2 diabetes mellitus without complications; I10 Essential (primary) hypertension; Z79.899 Other long term (current) drug therapy; Z90.49 Acquired absence of other specified parts of digestive tract; Z93.3 Colostomy status; Z98.0 Intestinal bypass and anastomosis status
CPT/HCPCS: 88305; J0360; J2704